=== PATIENT | male | born 1980 | race Caucasian/White ===

== ENCOUNTER 2023-12-17 07:49 | Outpatient (OUT) | payer OTHER, SELFPAY ==
[2023-12-17 09:06] LABS: Estimated Average Glucose 105 mg/dL; Glycohemoglobin A1C 5.3 % (4.5-6.2)
[2023-12-17 09:09] LABS: Alanine Aminotransferase 23 U/L (16-63); Albumin Globulin Ratio 1.3; Alkaline Phosphatase 73 U/L (46-116); Anion Gap 11.1; Aspartate Amino Transferase 15 U/L (15-37); BUN Creatinine Ratio 11.6; Bilirubin Total 1.1 mg/dL (0.2-1.0); Calcium 8.6 mg/dL (8.5-10.1); Carbon Dioxide 27.8 mmol/L (21.0-32.0); Chloride 106 mmol/L (98-107); Chol HDL Ratio 3.5; Cholesterol 158 mg/dL (<=200); Estimated GFR (African America >60 (>=60); Estimated GFR (Non-African Ame >60 (>=60); Globulin 3.1 g/dL; Glucose 100 mg/dL (74-106); HDL Cholesterol 45 mg/dL (40-60); LDL Cholesterol Calculated 96.4 mg/dL; Potassium 3.9 mmol/L (3.5-5.1); Sodium 141 mmol/L (136-145); Thyroid Stimulating Hormone 1.284 uIU/mL (0.358-3.740); Total Protein 7.1 g/dL (6.4-8.2); Triglycerides 83 mg/dL (<=150); VLDL CHOLESTEROL 16.6 mg/dL
[2023-12-17 09:23] LABS: Prostate Specific Antigen Scrn 0.87 ng/mL (<=4.00)
[2023-12-17 09:44] LABS: Basophils Percent Auto 0.8 % (0.2-2.0); Eosinophils Absolute Auto 0.1 10^3/uL (0.0-0.7); Eosinophils Percent Auto 1.6 % (0.9-7.0); Hemoglobin 14.9 g/dL (14.0-18.0); Immature Granulocytes Abs Auto 0.01 10^3/uL (0.00-0.03); Immature Granulocytes Pct Auto 0.2 % (0.0-0.5); Lymphocytes Absolute Auto 1.9 10^3/uL (1.2-3.8); Lymphocytes Percent Auto 37.3 % (20.5-60.0); Mean Corpuscular HGB Conc 33.1 g/dL (29.9-35.2); Mean Corpuscular Hemoglobin 29.7 pg (25.9-34.0); Mean Corpuscular Volume 89.6 fL (80.0-94.0); Mean Platelet Volume 10.6 fL (9.5-13.5); Monocytes Absolute Auto 0.4 10^3/uL (0.3-0.8); Neutrophils Absolute Auto 2.7 10^3/uL (1.4-6.5); Neutrophils Percent Auto 52.1 % (43.0-75.0); Platelet Count 205 10^3/uL (150-450); Red Blood Count 5.02 10^6/uL (4.70-6.10); Red Cell Distribution Width 11.8 % (11.0-15.0); White Blood Count 5.2 10^3/uL (4.0-11.0)
[2023-12-17 10:15] LABS: Free T3 2.61 pg/mL (2.18-3.98)
== END 2023-12-17 07:50 | disposition home or self-care (01) ==
LOC: LAB 07:54
PROVIDERS: PCP Family Medicine; Visit Provider Family Medicine
DX: Z00.00 Encounter for general adult medical examination without abnormal findings (principal); I10 Essential (primary) hypertension; E78.5 Hyperlipidemia, unspecified
CPT/HCPCS: 36415; 80053; 80061; 83036; 84436; 84439; 84443; 84481; 85025; G0103

== ENCOUNTER 2024-04-08 15:32 | Emergency (ER) | payer OTHER, SELFPAY ==
[2024-04-08 15:35] VITALS: PULSE 83; TEMP 36.6; O2SAT 98; BMI 34.2
[2024-04-08 15:40] VITALS: BP 145/90
--- NOTE | 2024-04-08 15:43 | XR_ITS ---
The [address] [address] Patient Name: GALINDO HURTADO MRN: [id number] date: 1980 Sex: M Assigned Patient Location: ER Current Patient Location: Accession/Order Number: [id number] Exam Date: 04/08/2024 16:10 Report Date: 04/08/2024 16:54 At the request of: AYALA DALTON Procedure: XR knee RT 3V EXAM: XR knee RT 3V HISTORY: fall COMPARISON: None. TECHNIQUE: 3 views of the right knee. FINDINGS: No acute fracture or dislocation. No significant knee joint effusion. No radiodense foreign body, or appreciable soft tissue gas. XR/XR knee RT 3V IMPRESSION: No acute osseous abnormality. Electronically authenticated by: MAGDA COLINDRES Date: 04/08/2024 16:54
--- NOTE | 2024-04-08 15:43 | ED_ITS ---
HPI HPI - Extremity Injury (Lower) General Chief Complaint: Extremity Injury, Lower Stated Complaint: fell off roof, knee pain Time Seen by Provider: 04/08/24 15:33 Source: patient Mode of arrival: Wheelchair Limitations: no limitations History of Present Illness HPI Narrative: Patient is a 44-year-old male who presents to the emergency department for an injury to the right knee. He states that he was dangling from his roof approximately 10 to 11 feet when he missed a step on the ladder and slowly slid down the ladder, landing on his feet, his right knee buckled. He states initially he was able to ambulate with no significant pain but it has become more painful as time is gone on. He denies any fall to the ground, head injury, pain in the neck or back. Most of his pain is in the anterolateral right knee. No medications prior to arrival. Related Data Previous Rx's ?Medication ?Instructions ?Recorded hydrocodone 5 mg-acetaminophen 325 1 tab PO Q6H PRN pain 3 days #12 04/08/24 mg tablet tabs ketorolac 10 mg tablet 10 mg PO TID PRN pain #10 tabs 04/08/24 Allergies Allergy/AdvReac Type Severity Reaction Status Date / Time No Known Drug Allergies Allergy Verified 04/08/24 15:58 Opioid HPI Opioid Management Most Recent Pain and Opioid Data: Last Pain Scale 7 04/08/24 16:08 04/08/24 Last MAR Pain Assessment 04/08/24 16:08 Review of Systems ROS Constitutional Denies: fever or chills Ears, nose, mouth, and throat Denies: throat pain or nasal congestion Cardiovascular Denies: chest pain Respiratory Denies: shortness of breath Gastrointestinal Denies: nausea or vomiting Musculoskeletal Reports: extremity pain and joint pain; Denies: back pain or neck pain Integumentary/Breast Denies: rash Neurological Denies: numbness in extremities or weakness in extremities Hematologic/Lymphatic Denies: easy bruising or easy bleeding PFSH PFSH Social History Little interest or pleasure in doing things: not at all Feeling down, depressed, or hopeless: not at all Exam Narrative Exam Narrative: Gen.: Awake, alert, in no distress Head: Normocephalic, atraumatic ENT: Moist mucous membranes Respiratory: No respiratory distress Extremities: Tenderness in the anterolateral right knee with no laxity of the patella. No joint effusion noted. No posterior right knee pain. No bony tenderness of the right anterior tibia Psych: Normal mood and affect Neuro: No focal neuro deficit Skin: Warm, dry, intact Constitutional Vital Signs, click to edit/add: Last Vital Signs Temp 97.8 F 04/08/24 15:35 Pulse 83 04/08/24 15:35 Resp 18 04/08/24 15:35 BP 145/90 H 04/08/24 15:40 Pulse Ox 98 04/08/24 15:35 O2 Del Method Room Air 04/08/24 15:35 Course Vital Signs Vital signs: Vital Signs Temperature 97.8 F 04/08/24 15:35 Pulse Rate 83 04/08/24 15:35 Respiratory Rate 18 04/08/24 15:35 Pulse Oximetry 98 04/08/24 15:35 Oxygen Delivery Method Room Air 04/08/24 15:35 Temperature 97.8 F 04/08/24 15:35 Pulse Rate 83 04/08/24 15:35 Respiratory Rate 18 04/08/24 15:35 Blood Pressure 145/90 H 04/08/24 15:40 Pulse Oximetry 98 04/08/24 15:35 Oxygen Delivery Method Room Air 04/08/24 15:35 MDM - Extremity Injury (Lower) MDM Narrative Medical decision making narrative: X-rays with no evidence of fracture or dislocation. Patient placed in an Paul wrap and knee immobilizer and remains neurovascularly intact. Medicated for pain in the ER. He has crutches at home. Rest, ice, elevate. Recommend orthopedic follow-up, patient was given a referral. Short course of analgesics and NSAIDs for home. Work note provided. Return to the ER if symptoms change or worsen SHARED APC VISIT, PHYSICIAN ATTESTATION: [id number] I performed a substantive part of the MDM during the patient?s E/M visit. I personally evaluated and examined the patient. I personally made or approved the documented management plan and acknowledge its risk of complications. Medical Records Attestation: I reviewed the patient's medical records. Discharge Plan Discharge Chief Complaint: Extremity Injury, Lower Clinical Impression: Acute pain of right knee, Right knee sprain Patient Disposition: Home, Self-Care Time of Disposition Decision: 16:28 Condition: Good Prescriptions / Home Meds: New hydrocodone-acetaminophen 5-325 mg tablet 1 tab PO Q6H PRN (Reason: pain) 3 Days Qty: 12 0RF Rx Instructions: DX: M25.561 ketorolac 10 mg tablet 10 mg PO TID PRN (Reason: pain) Qty: 10 0RF Print Language: [place]an Instructions: Knee Sprain (ED) Referrals: Sherman Aguilera MD [Primary Care Provider] - 1 week Lux Colvin MD [Physician] - As needed
[2024-04-08] MEDS: KETOROLAC TROMETHAMINE 10 MG TABLET PO (16:08)
[2024-04-08] MEDS: HYDROCODONE/ACET 5-325 MG TABLET 1 TAB PO (16:08)
== END 2024-04-08 16:40 | disposition home or self-care (01) ==
PROVIDERS: Emergency Provider Emergency Medicine; PCP Family Medicine
DX: S83.91XA Sprain of unspecified site of right knee, initial encounter (principal); M25.561 Pain in right knee; W17.89XA Other fall from one level to another, initial encounter
CPT/HCPCS: 73562; 99284

== ENCOUNTER 2024-07-10 10:09 | Emergency (ER) | payer OTHER, SELFPAY ==
[2024-07-10 10:13] VITALS: BP 173/100; PULSE 136; TEMP 36.7; O2SAT 97; BMI 35.6
--- OUTSIDE RECORDS SUMMARY | 2024-07-10 10:18 | XMS_ITS | CCD ---
Author Organization [facility] Care Team Providers Care School Inspector Name Role Phone STEVENSON ART Admitting Unavailable STEVENSON ART Attending Unavailable STEVENSON ART Referring JS Allen Primary Care Unavailable JASVIR, DR WEINSTEIN Primary Care Unavailable JASVIR, DR WEINSTEIN Admitting Unavailable JASVIR, DR WEINSTEIN Attending Unavailable JASVIR, DR WEINSTEIN Consulting Unavailable TONY, DR GAL Lomax Consulting Unavailable HAY, DR STAFFORD Consulting Unavailable ALICE, PIETER SALCEDO Consulting Unavailable CHRISTINE PRYOR Consulting Unavailable JASVIR, DR WEINSTEIN Admitting Unavailable JASVIR, DR WEINSTEIN Attending Unavailable JASVIR, DR WEINSTEIN Primary Care Unavailable JASVIR, DR WEINSTEIN Consulting Unavailable JASVIR, DR WEINSTEIN Primary Care Unavailable ROSA, DR CHARLES Austin Admitting Unavaildon LEE, DR CHARLES Austin Attending Unavailabl e ANDRES, DR ASHELY Magallanes Consulting Unavailable GINGER DALTON Consulting Unavailable Problems Active Problems Problem Classification Problem Date Documented Da te Episodic/Chronic Acute bronchitis (1 source) Acute bronchitis, unspecified; Translations: [ACUTE BRONCHITIS UNSPECIFIED] Onset: 11-13-2021 Episodic Diseases of white blood cells (1 source) Elevated white blood cell count, unspecified; Translations: [ELEVATED WHITE BLOOD CELL COUNT UNS] Onset: 04-29-2021 Chronic Essential hypertension (1 source) Essential (primary) hypertension; Translations: [ESSENTIAL PRIMARY HYPERTENSION] Onset: 04-29-2021 Chronic Pneumonia (except that caused by tuberculosis or sexually transmitted disease) (1 source) Pneumonia (except that caused by tuberculosis or sexually transmitted disease); Translations: [PNEUMONIA D/T CORONAVIRUS DIS 2019] Onset: 04-29-2021 Respiratory failure; insufficiency; arrest (adult) (1 source) Dependence on supplemental oxygen; Translations: [DEPENDENCE ON SUPPLEMENTAL OXYGEN] Onset: 04-29-2021 Chronic Unclassified (3 sources) CONTACT W/AND (SUSP) EXPOS COVID-19; Translations: [CONTACT W/AND (SUSP) EXPOS COVID-19] Onset: 11-13-2021 Unclassified (1 source) COUGH, UNSPECIFIED; Translations: [COUGH, UNSPECIFIED] Onset: 04-17-2021 Viral infection (3 sources) COVID-19; Translations: [COVID-19] Onset: 04-17-2021 Past or Other Problems Problem Classification Problem Date Documented Da te Episodic/Chronic Cardiac dysrhythmias (1 source) Tachycardia, unspecified; Translations: [TACHYCARDIA UNSPECIFIED] Onset: 04-29-2021 Episodic Diabetes mellitus without complication (1 source) Hyperglycemia, unspecified; Translations: [HYPERGLYCEMIA UNSPECIFIED] Onset: 04-29-2021 Episodic Fever of unknown origin (4 sources) Fever, unspecified; Translations: [FEVER UNSPECIFIED] Onset: 04-15-2021 Episodic Fluid and electrolyte disorders (1 source) Hypo-osmolality and hyponatremia; Translations: [HYPO-OSMOLALITY AND HYPONATREMIA] Onset: 04-29-2021 Episodic Malaise and fatigue (1 source) Weakness; Translations: [WEAKNESS] Onset: 04-17-2021 Episodic Other aftercare (1 source) Other long chain quiller tender (current) drug therapy; Translations: [OTH VETERINARY TECHNICIAN CURRENT DRUG THERAPY] Onset: 04-17-2021 Episodic Other lower respiratory disease (1 source) Shortness of breath; Translations: [SHORTNESS OF BREATH] Onset: 04-17-2021 Episodic Respiratory failure; insufficiency; arrest (adult) (1 source) Acute respiratory failure with hypoxia; Translations: [ACUTE RESPIRATORY FAIL W/HYPOXIA] Onset: 04-29-2021 Episodic Unclassified (1 source) CONTACT W/AND (SUSP) EXPOS COVID-19; Translations: [CONTACT W/AND (SUSP) EXPOS COVID-19] Onset: 11-10-2021 Results Test Name Value Interpretation Reference Range Facility [facility]29 SARS-CoV-2 (COVID-19) RNA RADHA+probe Ql (Unsp spec) Not detected Normal NOT DETECTED [facility] Comment on above: Result Comment: This test is not yet approved or cleared by the [place] FDA. When there are no FDA-approved or cleared tests available, and other criteria are met, FDA can make tests available under an emergency access mechanism called an Emergency Use Authorization (EUA). The EUA for this test is supported by the Shrimp Peeling Machine Operator of Health and Human Service's (HHS's) declaration that circumstances exist to justify the emergency use of in vitro diagnostics for the detection and/or diagnosis of the virus that causes COVID-19. This EUA will remain in effect (meaning this test can be used) for the duration of the COVID-19 declaration justifying emergency of IVDs, unless it is terminated or revoked by FDA (after which the test may no longer be used). When diagnostic testing is negative, the possibility of a false negative should be considered in the context of a patient's recent exposures and the presence of clinical signs and symptoms consistent with SARS-CoV-2. Performed By: #### C VDTB #### [facility] [address] [place] [address] Dr. Reba Landis CBC W MANUAL DIFFon 04-22-20 21 ATYPICAL LYMPH # Normal [facility] Comment on above: Performed By: #### H STROPN, CMP #### [facility] [address] [place] [address] Dr. Reba Landis ATYPICAL LYMPH % Normal [facility] Comment on above: Performed By: #### H STROPN, CMP #### [facility] [address] [place] [address] Dr. Reba Landis BAND # Normal 0.0-0.3 [facility] Comment on above: Performed By: #### H STROPN, CMP #### [facility] [address] [place] [address] Dr. Reba Landis BAND % Normal 0-5 [facility] Comment on above: Performed By: #### H STROPN, CMP #### [facility] [address] [place] [address] Dr. Reba Landis BASOM # 0.00 103/ul Normal 0.00-0.10 [facility] Comment on above: Performed By: #### H STROPN, CMP #### [facility] [address] [place] [address] Dr. Reba Landis BASOM % 0.0 % Critically low 0.2-2.0 [facility] Comment on above: Performed By: #### H STROPN, CMP #### [facility] [address] [place] [address] Dr. Reba Landis BLAST # Normal [facility] Comment on above: Performed By: #### H STROPN, CMP #### [facility] [address] [address] [address] Reba Landis BLAST % Normal [facility] Comment on above: Performed By: #### H STROPN, CMP #### [facility] [address] [place] [address] Dr. Reba Landis CORRECTED WBC Normal 4.0-11.0 [facility] Comment on above: Performed By: #### H STROPN, CMP #### [facility] [address] [place] [address] Dr. Reba Landis EOS # 0.00 103/ul Normal 0.00-0.70 [facility] Comment on above: Performed By: #### H STROPN, CMP #### [facility] [address] [place] [address] Dr. Reba Landis EOS% 0.0 % Critically low 0.9-7.0 [facility] Comment on above: Performed By: #### H STROPN, CMP #### [facility] [address] [place] [address] Dr. Reba Landis HCT 42.4 % Normal 42.0-54.0 [facility] Comment on above: Performed By: #### H STROPN, CMP #### [facility] [address] [place] [address] Dr. Reba Landis HGB 14.2 g/dl Normal 14.0-18.0 [facility] Comment on above: Performed By: #### H STROPN, CMP #### [facility] [address] [place] [address] Dr. Reba Landis LYMPHM # 0.41 103/ul Critically low 1.20-3.[address] [facility] Comment on above: Performed By: #### H STROPN, CMP #### [facility] [address] [address] [address] Reba Landis LYMPHM% 3.0 % Critically low 20.5-60.0 [facility] Comment on above: Performed By: #### H STROPN, CMP #### [facility] [address] [address] [address] Reba Landis MCH 28.9 pg Normal 25.9-34.0 [facility] Comment on above: Performed By: #### H STROPN, CMP #### [facility] [address] [address] [address] Reba Landis MCHC 33.5 g/dl Normal 29.9-35.2 [facility] Comment on above: Performed By: #### H STROPN, CMP #### [facility] [address] [address] [address] Reba Landis MCV 86.4 fL Normal 80.0-94.0 [facility] Comment on above: Performed By: #### H STROPN, CMP #### [facility] [address] [place] [address] Dr. Reba Landis METAMYELOCYTE # Normal [facility] Comment on above: Performed By: #### H STROPN, CMP #### [facility] [address] [address] [address] Reba Landis METAMYELOCYTE % Normal [facility] Comment on above: Performed By: #### H STROPN, CMP #### [facility] [address] [address] [address] Reba Landis MONOM# 1.10 103/ul Critically high 0.30-0.80 [facility] Comment on above: Performed By: #### H STROPN, CMP #### [facility] [address] [address] [address] Reba Landis MONOM% 8.0 % Normal 1.7-12.0 [facility] Comment on above: Performed By: #### H STROPN, CMP #### [facility] [address] [address] [address] Reba Landis MPV 10.1 fL Normal 9.5-13.5 [facility] Comment on above: Performed By: #### H STROPN, CMP #### [facility] [address] [address] [address] Reba Landis MYELOCYTE # Normal [facility] Comment on above: Performed By: #### H STROPN, CMP #### [facility] [address] [address] [address] Reba Landis MYELOCYTE % Normal [facility] Comment on above: Performed By: #### H STROPN, CMP #### [facility] [address] [address] [address] Reba Landis NRBC Normal [facility] Comment on above: Performed By: #### H STROPN, CMP #### [facility] [address] [place] [address] Dr. Reba Landis PLT 312 103/ul Normal 150-450 [facility] Comment on above: Performed By: #### H STROPN, CMP #### [facility] [address] [place] [address] Dr. Reba Landis RBC 4.91 106/ul Normal 4.70-6.10 [facility] Comment on above: Performed By: #### H STROPN, CMP #### [facility] [address] [place] [address] Dr. Reba Landis RDW 11.9 % Normal 11.0-15.0 [facility] Comment on above: Performed By: #### H STROPN, CMP #### [facility] [address] [address] [address] Reba Landis SEG # 12.19 103/ul Critically high 1.40-6.50 [facility] Comment on above: Performed By: #### H STROPN, CMP #### [facility] [address] [address] [address] Reba Landis SEG % 89.0 % Critically high 43.0-75.0 [facility] Comment on above: Performed By: #### H STROPN, CMP #### [facility] [address] [address] [address] Reba Landis WBC 13.7 103/ul Critically high 4.0-11.0 [facility] Comment on above: Performed By: #### H JEZ, CMP #### [facility] [address] [address] [address] Reba Landis CRPon 04-22-2021 CRP 0.8 mg/dL Normal <=1.0 [facility] Comment on above: Performed By: #### H EDNAPN, CMP #### [facility] [address] [address] [address] Reba Landis PROF 14(COMP METB)on 021 Albumin [Mass/Vol] 2.5 g/dL Critically low 3.5-5.0 [facility] Comment on above: Performed By: #### H JEZ, CMP #### [facility] [address] [place] [address] Dr. Reba Landis Albumin/Globulin [Mass ratio] 0.7 {ratio} Normal [facility] Comment on above: Performed By: #### H EDNAPN, CMP #### [facility] [address] [place] [address] Dr. Reba Landis ALP [Catalytic activity/Vol] 62 U/L Normal 38-126 [facility] Comment on above: Performed By: #### H EDNAPN, CMP #### [facility] [address] [address] [address] Reba Landis ALT [Catalytic activity/Vol] 35 U/L Normal 21-72 [facility] Comment on above: Performed By: #### H EDNAPN, CMP #### [facility] [address] [address] [address] Reba Landis Anion gap [Moles/Vol] 14.0 mmol/L Normal [facility] Comment on above: Performed By: #### H STROPN, CMP #### [facility] [address] [place] [address] Dr. Reba Landis AST [Catalytic activity/Vol] 13 U/L Critically low 17-59 [facility] Comment on above: Performed By: #### H STROPN, CMP #### [facility] [address] [address] [address] Reba Landis Bilirubin [Mass/Vol] 0.4 mg/dL Normal 0.2-1.3 [facility] Comment on above: Performed By: #### H STROPN, CMP #### [facility] [address] [address] [address] Reba Landis Calcium [Mass/Vol] 8.5 mg/dL Normal 8.4-10.2 [facility] Comment on above: Performed By: #### H STROPN, CMP #### [facility] [address] [address] [address] Reba Landis Chloride [Moles/Vol] 103 mmol/L Normal 98-107 [facility] Comment on above: Performed By: #### H STROPN, CMP #### [facility] [address] [place] [address] Dr. Reba Landis CO2 [Moles/Vol] 24.8 mmol/L Normal 22.0-30.0 [facility] Comment on above: Performed By: #### H STROPN, CMP #### [facility] [address] [place] [address] Dr. Reba Landis Creatinine [Mass/Vol] 0.93 mg/dL Normal 0.66-1.25 [facility] Comment on above: Performed By: #### H STROPN, CMP #### [facility] [address] [place] [address] Dr. Reba Landis EGFR-AF GUAMANIAN >60 Normal >=60 [facility] Comment on above: Performed By: #### H STROPN, CMP #### [facility] [address] [place] [address] Dr. Reba Landis EGFR-NON AF GUAMANIAN >60 Normal >=60 [facility] Comment on above: Performed By: #### H STROPN, CMP #### [facility] [address] [place] [address] Dr. Reba Landis Globulin (S) [Mass/Vol] 3.7 g/dL Normal [facility] Comment on above: Performed By: #### H STROPN, CMP #### [facility] [address] [address] [address] Reba Landis Glucose [Mass/Vol] 206 mg/dL Critically high 74-106 [facility] Comment on above: Performed By: #### H EDNAPN, CMP #### [facility] [address] [address] [address] Reba Landis Potassium [Moles/Vol] 4.8 mmol/L Normal 3.4-5.0 [facility] Comment on above: Performed By: #### H STROPN, CMP #### [facility] [address] [address] [address] Reba Landis Protein [Mass/Vol] 6.2 g/dL Normal 6.1-8.2 [facility] Comment on above: Performed By: #### H STROPN, CMP #### [facility] [address] [place] [address] Dr. Reba Landis Sodium [Moles/Vol] 137 mmol/L Normal 137-145 [facility] Comment on above: Performed By: #### H STROPN, CMP #### [facility] [address] [place] [address] Dr. Reba Landis Urea nitrogen [Mass/Vol] 19.0 mg/dL Normal 9.0-20.0 [facility] Comment on above: Performed By: #### H EDNAPN, CMP #### [facility] [address] [place] [address] Dr. Reba Landis Urea nitrogen/Creatinin e [Mass ratio] 20.4 mg/mg Normal [facility] Comment on above: Performed By: #### H STROPN, CMP #### [facility] [address] [place] [address] Dr. Reba Landis THEOPHYLLINEon 04-22-2021 THEOPHYLLINE 11.0 ug/mL Normal 8.0-20.0 [facility] Comment on above: Performed By: #### H STROPN, CMP #### [facility] [address] [place] [address] Dr. Reba Landis CBC AUTO DIFFon 04-21-2021 BASO # 0.0 103/ul Normal 0.0-0.1 [facility] Comment on above: Performed By: #### H STROPN, CMP #### [facility] [address] [place] [address] Dr. Reba Landis Basophils/100 WBC (Bld) 0.1 % Critically low 0.2-2.0 [facility] Comment on above: Performed By: #### H STROPN, CMP #### [facility] [address] [place] [address] Dr. Reba Landis EO # 0.0 103/ul Normal 0.0-0.7 [facility] Comment on above: Performed By: #### H STROPN, CMP #### [facility] [address] [place] [address] Dr. Reba Landis Eosinophils/100 WBC (Bld) 0.0 % Critically low 0.9-7.0 [facility] Comment on above: Performed By: #### H STROPN, CMP #### [facility] [address] [place] [address] Dr. Reba Landis Erythrocyte distribution width (RBC) [Ratio] 11.9 % Normal 11.0-15.0 [facility] Comment on above: Performed By: #### H STROPN, CMP #### [facility] [address] [place] [address] Dr. Reba Landis Hematocrit (Bld) [Volume fraction] 40.0 % Critically low 42.0-54.0 [facility] Comment on above: Performed By: #### H STROPN, CMP #### [facility] [address] [place] [address] Dr. Reba Landis Hemoglobin (Bld) [Mass/Vol] 13.3 g/dL Critically low 14.0-18.0 [facility] Comment on above: Performed By: #### H STROPN, CMP #### [facility] [address] [place] [address] Dr. Reba Landis IG # 0.12 10e3/ul Critically high 0.00-0.03 [facility] Comment on above: Performed By: #### H STROPN, CMP #### [facility] [address] [address] [address] Reba Landis IG % 1.1 % Critically high 0.0-0.[address] [facility] Comment on above: Performed By: #### H STROPN, CMP #### [facility] [address] [place] [address] Dr. Reba Landis LYMPH # 0.7 103/ul Critically low 1.2-3.8 [facility] Comment on above: Performed By: #### H STROPN, CMP #### [facility] [address] [place] [address] Dr. Reba Landis Lymphocytes/100 WBC (Bld) 5.9 % Critically low 20.5-60.0 [facility] Comment on above: Performed By: #### H STROPN, CMP #### [facility] [address] [place] [address] Dr. Reba Landis MANUAL DIFF REQ NO Normal [facility] Comment on above: Performed By: #### H STROPN, CMP #### [facility] [address] [place] [address] Dr. Reba Landis MCH (RBC) [Entitic mass] 28.5 pg Normal 25.9-34.0 [facility] Comment on above: Performed By: #### H STROPN, CMP #### [facility] [address] [place] [address] Dr. Reba Landis MCHC (RBC) [Mass/Vol] 33.3 g/dL Normal 29.9-35.2 [facility] Comment on above: Performed By: #### H STROPN, CMP #### [facility] [address] [place] [address] Dr. Reba Landis MCV (RBC) [Entitic vol] 85.8 fL Normal 80.0-94.0 [facility] Comment on above: Performed By: #### H STROPN, CMP #### [facility] [address] [place] [address] Dr. Reba Landis MONO # 0.5 103/ul Normal 0.3-0.8 [facility] Comment on above: Performed By: #### H STROPN, CMP #### [facility] [address] [address] [address] Reba Landis Monocytes/100 WBC (Bld) 4.5 % Normal 1.7-12.0 [facility] Comment on above: Performed By: #### H STROPN, CMP #### [facility] [address] [address] [address] Reba Landis NEUT # 9.7 103/ul Critically high 1.4-6.[address] [facility] Comment on above: Performed By: #### H STROPN, CMP #### [facility] [address] [address] [address] Reba Landis Neutrophils/100 WBC (Bld) 88.4 % Critically high 43.0-75.0 [facility] Comment on above: Performed By: #### H STROPN, CMP #### [facility] [address] [address] [address] Reba Landis Platelet mean volume (Bld) [Entitic vol] 10.7 fL Normal 9.5-13.5 [facility] Comment on above: Performed By: #### H STROPN, CMP #### [facility] [address] [address] [address] Reba Landis PLT 273 103/ul Normal 150-450 [facility] Comment on above: Performed By: #### H STROPN, CMP #### [facility] [address] [address] [address] Reba Landis RBC 4.66 106/ul Critically low 4.70-6.[address] [facility] Comment on above: Performed By: #### H STROPN, CMP #### [facility] [address] [address] [address] Reba Landis WBC 10.9 103/ul Normal 4.0-11.0 [facility] Comment on above: Performed By: #### H STROPN, CMP #### [facility] [address] [address] [address] Reba Landis CRPon 04-21-2021 CRP 1.4 mg/dL Critically high <=1.[address] [facility] Comment on above: Performed By: #### H STROPN, CMP #### [facility] [address] [address] [address] Reba Landis PROF 14(COMP METB)on 021 Albumin [Mass/Vol] 2.5 g/dL Critically low 3.5-5.0 [facility] Comment on above: Performed By: #### H EDNAPN, CMP #### [facility] [address] [address] [address] Reba Landis Albumin/Globulin [Mass ratio] 0.7 {ratio} Normal [facility] Comment on above: Performed By: #### H EDNAPN, CMP #### [facility] [address] [address] [address] Reba Landis ALP [Catalytic activity/Vol] 63 U/L Normal 38-126 [facility] Comment on above: Performed By: #### H EDNAPN, CMP #### [facility] [address] [address] [address] Reba Landis ALT [Catalytic activity/Vol] 40 U/L Normal 21-72 [facility] Comment on above: Performed By: #### H EDNAPN, CMP #### [facility] [address] [address] [address] Reba Landis Anion gap [Moles/Vol] 13.4 mmol/L Normal [facility] Comment on above: Performed By: #### H EDNAPN, CMP #### [facility] [address] [address] [address] Reba Landis AST [Catalytic activity/Vol] 15 U/L Critically low 17-59 [facility] Comment on above: Performed By: #### H STROPN, CMP #### [facility] [address] [address] [address] Reba Landis Bilirubin [Mass/Vol] 0.4 mg/dL Normal 0.2-1.3 [facility] Comment on above: Performed By: #### H STROPN, CMP #### [facility] [address] [place] [address] Dr. Reba Landis Calcium [Mass/Vol] 8.6 mg/dL Normal 8.4-10.2 [facility] Comment on above: Performed By: #### H STROPN, CMP #### [facility] [address] [address] [address] Reba Landis Chloride [Moles/Vol] 103 mmol/L Normal 98-107 [facility] Comment on above: Performed By: #### H STROPN, CMP #### [facility] [address] [address] [address] Reba Landis CO2 [Moles/Vol] 26.2 mmol/L Normal 22.0-30.0 [facility] Comment on above: Performed By: #### H STROPN, CMP #### [facility] [address] [place] [address] Dr. Reba Landis Creatinine [Mass/Vol] 0.88 mg/dL Normal 0.66-1.25 [facility] Comment on above: Performed By: #### H STROPN, CMP #### [facility] [address] [place] [address] Dr. Reba Landis EGFR-AF GUAMANIAN >60 Normal >=60 [facility] Comment on above: Performed By: #### H EDNAPN, CMP #### [facility] [address] [place] [address] Dr. Reba Landis EGFR-NON AF GUAMANIAN >60 Normal >=60 [facility] Comment on above: Performed By: #### H EDNAPN, CMP #### [facility] [address] [place] [address] Dr. Reba Landis Globulin (S) [Mass/Vol] 3.5 g/dL Normal [facility] Comment on above: Performed By: #### H STROPN, CMP #### [facility] [address] [place] [address] Dr. Reba Landis Glucose [Mass/Vol] 202 mg/dL Critically high 74-106 T [facility] Comment on above: Performed By: #### H STROPN, CMP #### [facility] [address] [place] [address] Dr. Reba Landis Potassium [Moles/Vol] 4.6 mmol/L Normal 3.4-5.0 [facility] Comment on above: Performed By: #### H JEZ, CMP #### [facility] [address] [place] [address] Dr. Reba Landis Protein [Mass/Vol] 6.0 g/dL Critically low 6.1-8.2 [facility] Comment on above: Performed By: #### H JEZ, CMP #### [facility] [address] [place] [address] Dr. Reba Landis Sodium [Moles/Vol] 138 mmol/L Normal 137-145 [facility] Comment on above: Performed By: #### H JEZ, CMP #### [facility] [address] [place] [address] Dr. Reba Landis Urea nitrogen [Mass/Vol] 16.0 mg/dL Normal 9.0-20.0 [facility] Comment on above: Performed By: #### Ruddy STORY, CMP #### [facility] [address] [place] [address] Dr. Reba Landis Urea nitrogen/Creatinin e [Mass ratio] 18.2 mg/mg Normal [facility] Comment on above: Performed By: #### H JEZ, CMP #### [facility] [address] [place] [address] Dr. Reba Landis THEOPHYLLINEon 04-21-2021 THEOPHYLLINE 9.5 ug/mL Normal 8.0-20.0 [facility] Comment on above: Performed By: #### H JEZ, CMP #### [facility] [address] [place] [address] Dr. Reba Landis CBC AUTO DIFFon 04-20-2021 BASO # 0.0 103/ul Normal 0.0-0.1 [facility] Comment on above: Performed By: #### C BC #### [facility] [address] [place] [address] Dr. Reba Landis Basophils/100 WBC (Bld) 0.2 % Normal 0.2-2.0 [facility] Comment on above: Performed By: #### C BC #### [facility] [address] [address] [address] Reba Landis EO # 0.0 103/ul Normal 0.0-0.7 [facility] Comment on above: Performed By: #### C BC #### [facility] [address] [place] [address] Dr. Reba Landis Eosinophils/100 WBC (Bld) 0.0 % Critically low 0.9-7.0 [facility] Comment on above: Performed By: #### C BC #### [facility] [address] [place] [address] Dr. Reba Landis Erythrocyte distribution width (RBC) [Ratio] 12.0 % Normal 11.0-15.0 [facility] Comment on above: Performed By: #### C BC #### [facility] [address] [place] [address] Dr. Reba Landis Hematocrit (Bld) [Volume fraction] 43.3 % Normal 42.0-54.0 [facility] Comment on above: Performed By: #### C BC #### [facility] [address] [place] [address] Dr. Reba Landis Hemoglobin (Bld) [Mass/Vol] 14.4 g/dL Normal 14.0-18.0 [facility] Comment on above: Performed By: #### C BC #### [facility] [address] [place] [address] Dr. Reba Landis IG # 0.16 10e3/ul Critically high 0.00-0.03 [facility] Comment on above: Performed By: #### C BC #### [facility] [address] [place] [address] Dr. Reba Landis IG % 1.0 % Critically high 0.0-0.[address] [facility] Comment on above: Performed By: #### C BC #### [facility] [address] [place] [address] Dr. Reba Landis LYMPH # 0.9 103/ul Critically low 1.2-3.8 [facility] Comment on above: Performed By: #### C BC #### [facility] [address] [place] [address] Dr. Reba Landis Lymphocytes/100 WBC (Bld) 5.2 % Critically low 20.5-60.0 [facility] Comment on above: Performed By: #### C BC #### [facility] [address] [place] [address] Dr. Reba Landis MANUAL DIFF REQ NO Normal [facility] Comment on above: Performed By: #### C BC #### [facility] [address] [place] [address] Dr. Reba Landis MCH (RBC) [Entitic mass] 29.0 pg Normal 25.9-34.0 [facility] Comment on above: Performed By: #### C BC #### [facility] [address] [place] [address] Dr. Reba Landis MCHC (RBC) [Mass/Vol] 33.3 g/dL Normal 29.9-35.2 [facility] Comment on above: Performed By: #### C BC #### [facility] [address] [place] [address] Dr. Reba Landis MCV (RBC) [Entitic vol] 87.1 fL Normal 80.0-94.0 [facility] Comment on above: Performed By: #### C BC #### [facility] [address] [place] [address] Dr. Reba Landis MONO # 0.5 103/ul Normal 0.3-0.8 [facility] Comment on above: Performed By: #### C BC #### [facility] [address] [place] [address] Dr. Reba Landis Monocytes/100 WBC (Bld) 3.0 % Normal 1.7-12.0 [facility] Comment on above: Performed By: #### C BC #### [facility] [address] [place] [address] Dr. Reba Landis NEUT # 15.0 103/ul Critically high 1.4-6.5 [facility] Comment on above: Performed By: #### C BC #### [facility] [address] [address] [address] Reba Landis Neutrophils/100 WBC (Bld) 90.6 % Critically high 43.0-75.0 [facility] Comment on above: Performed By: #### C BC #### [facility] [address] [place] [address] Dr. Reba Landis Platelet mean volume (Bld) [Entitic vol] 10.8 fL Normal 9.5-13.5 [facility] Comment on above: Performed By: #### C BC #### [facility] [address] [address] [address] Reba Landis PLT 302 103/ul Normal 150-450 [facility] Comment on above: Performed By: #### C BC #### [facility] [address] [place] [address] Dr. Reba Landis RBC 4.97 106/ul Normal 4.70-6.10 [facility] Comment on above: Performed By: #### C BC #### [facility] [address] [address] [address] Reba Landis WBC 16.5 103/ul Critically high 4.0-11.0 [facility] Comment on above: Performed By: #### C BC #### [facility] [address] [place] [address] Dr. Reba Landis CRPon 04-20-2021 CRP 3.3 mg/dL Critically high <=1.[address] [facility] Comment on above: Performed By: #### T RUFINO, CMP, CRP #### [facility] [address] [place] [address] Dr. Reba Landis Covid-19 PCR (CVDTB)on 04-01 SARS-CoV-2 (COVID-19) RNA RADHA+probe Ql (Unsp spec) Not detected Normal NOT DETECTED [facility] Comment on above: Result Comment: This test is not yet approved or cleared by the [place] FDA. When there are no FDA-approved or cleared tests available, and other criteria are met, FDA can make tests available under an emergency access mechanism called an Emergency Use Authorization (EUA). The EUA for this test is supported by the [place] of Health and Human Service's (HHS's) declaration that circumstances exist to justify the emergency use of in vitro diagnostics for the detection and/or diagnosis of the virus that causes COVID-19. This EUA will remain in effect (meaning this test can be used) for the duration of the COVID-19 declaration justifying emergency of IVDs, unless it is terminated or revoked by FDA (after which the test may no longer be used). When diagnostic testing is negative, the possibility of a false negative should be considered in the context of a patient's recent exposures and the presence of clinical signs and symptoms consistent with SARS-CoV-2. Performed By: #### C VDTBH #### [facility] [address] [place] [address] Dr. Reba Landis PROF 14(COMP METB)on 021 Albumin [Mass/Vol] 2.8 g/dL Critically low 3.5-5.0 [facility] Comment on above: Performed By: #### Peyton JOY CMP, CRP #### [facility] [address] [place] [address] Dr. Reba Landis Albumin/Globulin [Mass ratio] 0.7 {ratio} Normal [facility] Comment on above: Performed By: #### Peyton JOY CMP, CRP #### [facility] [address] [place] [address] Dr. Reba Landis ALP [Catalytic activity/Vol] 79 U/L Normal 38-126 [facility] Comment on above: Performed By: #### Peyton JOY CMP, CRP #### [facility] [address] [place] [address] Dr. Reba Landis ALT [Catalytic activity/Vol] 51 U/L Normal 21-72 [facility] Comment on above: Performed By: #### Peyton JOY CMP, CRP #### [facility] [address] [place] [address] Dr. Reba Landis Anion gap [Moles/Vol] 14.0 mmol/L Normal [facility] Comment on above: Performed By: #### Peyton JOY CMP, CRP #### [facility] [address] [address] [address] Reba Landis AST [Catalytic activity/Vol] 24 U/L Normal 17-59 [facility] Comment on above: Performed By: #### Peyton JOY CMP, CRP #### [facility] [address] [place] [address] Dr. Reba Landis Bilirubin [Mass/Vol] 0.4 mg/dL Normal 0.2-1.3 [facility] Comment on above: Performed By: #### Peyton JOY CMP, CRP #### [facility] [address] [place] [address] Dr. Reba Landis Calcium [Mass/Vol] 8.8 mg/dL Normal 8.4-10.2 [facility] Comment on above: Performed By: #### Peyton JOY CMP, CRP #### [facility] [address] [place] [address] Dr. Reba Landis Chloride [Moles/Vol] 103 mmol/L Normal 98-107 [facility] Comment on above: Performed By: #### Peyton JOY CMP, CRP #### [facility] [address] [place] [address] Dr. Reba Landis CO2 [Moles/Vol] 24.1 mmol/L Normal 22.0-30.0 [facility] Comment on above: Performed By: #### Peyton JOY CMP, CRP #### [facility] [address] [place] [address] Dr. Reba Landis Creatinine [Mass/Vol] 1.08 mg/dL Normal 0.66-1.25 [facility] Comment on above: Performed By: #### Peyton JOY CMP, CRP #### [facility] [address] [address] [address] Reba Landis EGFR-AF GUAMANIAN >60 Normal >=60 [facility] Comment on above: Performed By: #### T RUFINO, CMP, CRP #### [facility] [address] [address] [address] Reba Landis EGFR-NON AF GUAMANIAN >60 Normal >=60 [facility] Comment on above: Performed By: #### T RUFINO CMP, CRP #### [facility] [address] [address] [address] Reba Landis Globulin (S) [Mass/Vol] 4.3 g/dL Normal [facility] Comment on above: Performed By: #### T RUFINO, CMP, CRP #### [facility] [address] [address] [address] Reba Landis Glucose [Mass/Vol] 204 mg/dL Critically high 74-106 [facility] Comment on above: Performed By: #### T RUFINO, CMP, CRP #### [facility] [address] [address] [address] Reba Landis Potassium [Moles/Vol] 4.1 mmol/L Normal 3.4-5.0 [facility] Comment on above: Performed By: #### T RUFINO, CMP, CRP #### [facility] [address] [address] [address] Reba Landis Protein [Mass/Vol] 7.1 g/dL Normal 6.1-8.2 [facility] Comment on above: Performed By: #### T RUFINO, CMP, CRP #### [facility] [address] [address] [address] Reba Landis Sodium [Moles/Vol] 137 mmol/L Normal 137-145 [facility] Comment on above: Performed By: #### T RUFINO, CMP, CRP #### [facility] [address] [address] [address] Reba Landis Urea nitrogen [Mass/Vol] 19.0 mg/dL Normal 9.0-20.0 [facility] Comment on above: Performed By: #### T RUFINO, CMP, CRP #### [facility] [address] [address] [address] Reba Landis Urea nitrogen/Creatinin e [Mass ratio] 17.6 mg/mg Normal [facility] Comment on above: Performed By: #### T RUFINO, CMP, CRP #### [facility] [address] [address] [address] Reba Landis THEOPHYLLINEon 04-20-2021 THEOPHYLLINE 11.0 ug/mL Normal 8.0-20.0 [facility] Comment on above: Performed By: #### T RUFINO, CMP, CRP #### [facility] [address] [place] [address] Dr. Reba Landis CBC AUTO DIFFon 04-19-2021 BASO # 0.0 103/ul Normal 0.0-0.1 [facility] Comment on above: Performed By: #### H STROPN, CMP #### [facility] [address] [place] [address] Dr. Reba Landis Basophils/100 WBC (Bld) 0.1 % Critically low 0.2-2.0 [facility] Comment on above: Performed By: #### H JZE, CMP #### [facility] [address] [place] [address] Dr. Reba Landis EO # 0.0 103/ul Normal 0.0-0.7 [facility] Comment on above: Performed By: #### H JEZ, CMP #### [facility] [address] [place] [address] Dr. Reba Landis Eosinophils/100 WBC (Bld) 0.0 % Critically low 0.9-7.0 [facility] Comment on above: Performed By: #### H JEZ, CMP #### [facility] [address] [place] [address] Dr. Reba Landis Erythrocyte distribution width (RBC) [Ratio] 12.1 % Normal 11.0-15.0 [facility] Comment on above: Performed By: #### H STROPN, CMP #### [facility] [address] [place] [address] Dr. Reba Landis Hematocrit (Bld) [Volume fraction] 42.3 % Normal 42.0-54.0 [facility] Comment on above: Performed By: #### H EDNAPN, CMP #### [facility] [address] [place] [address] Dr. Reba Landis Hemoglobin (Bld) [Mass/Vol] 13.7 g/dL Critically low 14.0-18.0 [facility] Comment on above: Performed By: #### H STROPN, CMP #### [facility] [address] [address] [address] Reba Landis IG # 0.13 10e3/ul Critically high 0.00-0.03 [facility] Comment on above: Performed By: #### H STROPN, CMP #### [facility] [address] [address] [address] Reba Landis IG % 0.8 % Critically high 0.0-0.5 [facility] Comment on above: Performed By: #### H STROPN, CMP #### [facility] [address] [address] [address] Reba Landis LYMPH # 0.8 103/ul Critically low 1.2-3.8 [facility] Comment on above: Performed By: #### H STROPN, CMP #### [facility] [address] [address] [address] Reba Landis Lymphocytes/100 WBC (Bld) 5.0 % Critically low 20.5-60.0 [facility] Comment on above: Performed By: #### H STROPN, CMP #### [facility] [address] [address] [address] Reba Landis MANUAL DIFF REQ NO Normal [facility] Comment on above: Performed By: #### H STROPN, CMP #### [facility] [address] [address] [address] Reba Landis MCH (RBC) [Entitic mass] 28.5 pg Normal 25.9-34.0 [facility] Comment on above: Performed By: #### H STROPN, CMP #### [facility] [address] [address] [address] Reba Landis MCHC (RBC) [Mass/Vol] 32.4 g/dL Normal 29.9-35.2 [facility] Comment on above: Performed By: #### H STROPN, CMP #### [facility] [address] [address] [address] Reba Landis MCV (RBC) [Entitic vol] 87.9 fL Normal 80.0-94.0 [facility] Comment on above: Performed By: #### H STROPN, CMP #### [facility] [address] [place] [address] Dr. Reba Landis MONO # 0.4 103/ul Normal 0.3-0.8 [facility] Comment on above: Performed By: #### H STROPN, CMP #### [facility] [address] [place] [address] Dr. Reba Landis Monocytes/100 WBC (Bld) 2.3 % Normal 1.7-12.0 [facility] Comment on above: Performed By: #### H STROPN, CMP #### [facility] [address] [place] [address] Dr. Reba Landis NEUT # 14.3 103/ul Critically high 1.4-6.5 [facility] Comment on above: Performed By: #### H STROPN, CMP #### [facility] [address] [place] [address] Dr. Reba Landis Neutrophils/100 WBC (Bld) 91.8 % Critically high 43.0-75.0 [facility] Comment on above: Performed By: #### H STROPN, CMP #### [facility] [address] [place] [address] Dr. Reba Landis Platelet mean volume (Bld) [Entitic vol] 10.9 fL Normal 9.5-13.5 [facility] Comment on above: Performed By: #### H STROPN, CMP #### [facility] [address] [place] [address] Dr. Reba Landis PLT 234 103/ul Normal 150-450 [facility] Comment on above: Performed By: #### H STROPN, CMP #### [facility] [address] [place] [address] Dr. Reba Landis RBC 4.81 106/ul Normal 4.70-6.10 [facility] Comment on above: Performed By: #### H STROPN, CMP #### [facility] [address] [place] [address] Dr. Reba Landis WBC 15.5 103/ul Critically high 4.0-11.0 [facility] Comment on above: Performed By: #### H JEZ, CMP #### [facility] [address] [place] [address] Dr. Reba Landis CRPon 04-19-2021 CRP 5.6 mg/dL Critically high <=1.0 [facility] Comment on above: Performed By: #### H JEZ, CMP #### [facility] [address] [address] [address] Reba Landis PROF 14(COMP METB)on 021 Albumin [Mass/Vol] 2.6 g/dL Critically low 3.5-5.0 [facility] Comment on above: Performed By: #### H JEZ, CMP #### [facility] [address] [place] [address] Dr. Reba Landis Albumin/Globulin [Mass ratio] 0.6 {ratio} Normal [facility] Comment on above: Performed By: #### H JEZ, CMP #### [facility] [address] [place] [address] Dr. Reba Landis ALP [Catalytic activity/Vol] 78 U/L Normal 38-126 [facility] Comment on above: Performed By: #### H JEZ, CMP #### [facility] [address] [place] [address] Dr. Reba Landis ALT [Catalytic activity/Vol] 51 U/L Normal 21-72 [facility] Comment on above: Performed By: #### H EDNAPN, CMP #### [facility] [address] [place] [address] Dr. Reba Landis Anion gap [Moles/Vol] 10.6 mmol/L Normal [facility] Comment on above: Performed By: #### H EDNAPN, CMP #### [facility] [address] [place] [address] Dr. Reba Landis AST [Catalytic activity/Vol] 26 U/L Normal 17-59 [facility] Comment on above: Performed By: #### H EDNAPN, CMP #### [facility] [address] [address] [address] Reba Landis Bilirubin [Mass/Vol] 0.5 mg/dL Normal 0.2-1.3 [facility] Comment on above: Performed By: #### H STROPN, CMP #### [facility] [address] [place] [address] Dr. Reba Landis Calcium [Mass/Vol] 8.8 mg/dL Normal 8.4-10.2 [facility] Comment on above: Performed By: #### H STROPN, CMP #### [facility] [address] [place] [address] Dr. Reba Landis Chloride [Moles/Vol] 103 mmol/L Normal 98-107 [facility] Comment on above: Performed By: #### H STROPN, CMP #### [facility] [address] [place] [address] Dr. Reba Landis CO2 [Moles/Vol] 28.9 mmol/L Normal 22.0-30.0 [facility] Comment on above: Performed By: #### H STROPN, CMP #### [facility] [address] [place] [address] Dr. Reba Landis Creatinine [Mass/Vol] 1.18 mg/dL Normal 0.66-1.25 [facility] Comment on above: Performed By: #### H STROPN, CMP #### [facility] [address] [place] [address] Dr. Reba Landis EGFR-AF GUAMANIAN >60 Normal >=60 [facility] Comment on above: Performed By: #### H STROPN, CMP #### [facility] [address] [place] [address] Dr. Reba Landis EGFR-NON AF GUAMANIAN >60 Normal >=60 [facility] Comment on above: Performed By: #### H STROPN, CMP #### [facility] [address] [place] [address] Dr. Reba Landis Globulin (S) [Mass/Vol] 4.2 g/dL Normal [facility] Comment on above: Performed By: #### H STROPN, CMP #### [facility] [address] [address] [address] Reba Landis Glucose [Mass/Vol] 204 mg/dL Critically high 74-106 T [facility] Comment on above: Performed By: #### H JEZ, CMP #### [facility] [address] [address] [address] Reba Landis Potassium [Moles/Vol] 4.5 mmol/L Normal 3.4-5.0 [facility] Comment on above: Performed By: #### H EDNAPN, CMP #### [facility] [address] [address] [address] Reba Landis Protein [Mass/Vol] 6.8 g/dL Normal 6.1-8.2 [facility] Comment on above: Performed By: #### H STROCALOS, CMP #### [facility] [address] [address] [address] Reba Landis Sodium [Moles/Vol] 138 mmol/L Normal 137-145 [facility] Comment on above: Performed By: #### H STROCALOS, CMP #### [facility] [address] [address] [address] Reba Landis Urea nitrogen [Mass/Vol] 19.0 mg/dL Normal 9.0-20.0 [facility] Comment on above: Performed By: #### H JEZ, CMP #### [facility] [address] [place] [address] Dr. Reba Landis Urea nitrogen/Creatinin e [Mass ratio] 16.1 mg/mg Normal [facility] Comment on above: Performed By: #### H STROPN, CMP #### [facility] [address] [address] [address] Reba Landis THEOPHYLLINEon 04-19-2021 THEOPHYLLINE 10.6 ug/mL Normal 8.0-20.0 [facility] Comment on above: Performed By: #### H STROPN, CMP #### [facility] [address] [address] [address] Reba Landis CBC W MANUAL DIFFon 04-18-20 21 ATYPICAL LYMPH # 0.00 103/ul Normal [facility] Comment on above: Performed By: #### C BC #### [facility] [address] [address] [address] Reba Landis ATYPICAL LYMPH % 0 % Normal [facility] Comment on above: Performed By: #### C BC #### [facility] [address] [place] [address] Dr. Reba Landis BAND # Normal 0.0-0.3 [facility] Comment on above: Performed By: #### C BC #### [facility] [address] [place] [address] Dr. Reba Landis BAND % Normal 0-5 [facility] Comment on above: Performed By: #### C BC #### [facility] [address] [place] [address] Dr. Reba Landis BASOM # 0.00 103/ul Normal 0.00-0.10 [facility] Comment on above: Performed By: #### C BC #### [facility] [address] [place] [address] Dr. Reba Landis BASOM % 0.0 % Critically low 0.2-2.0 [facility] Comment on above: Performed By: #### C BC #### [facility] [address] [place] [address] Dr. Reba Landis BLAST # Normal [facility] Comment on above: Performed By: #### C BC #### [facility] [address] [place] [address] Dr. Reba Landis BLAST % Normal [facility] Comment on above: Performed By: #### C BC #### [facility] [address] [place] [address] Dr. Reba Landis CORRECTED WBC Normal 4.0-11.0 [facility] Comment on above: Performed By: #### C BC #### [facility] [address] [place] [address] Dr. Reba Landis EOS # 0.09 103/ul Normal 0.00-0.70 [facility] Comment on above: Performed By: #### C BC #### [facility] [address] [place] [address] Dr. Reba Landis EOS% 1.0 % Normal 0.9-7.0 [facility] Comment on above: Performed By: #### C BC #### [facility] [address] [place] [address] Dr. Reba Landis HCT 43.9 % Normal 42.0-54.0 [facility] Comment on above: Performed By: #### C BC #### [facility] [address] [place] [address] Dr. Reba Landis HGB 14.1 g/dl Normal 14.0-18.0 [facility] Comment on above: Performed By: #### C BC #### [facility] [address] [place] [address] Dr. Reba Landis LYMPHM # 0.92 103/ul Critically low 1.20-3.80 [facility] Comment on above: Performed By: #### C BC #### [facility] [address] [place] [address] Dr. Reba Landis LYMPHM% 10.0 % Critically low 20.5-60.0 [facility] Comment on above: Performed By: #### C BC #### [facility] [address] [place] [address] Dr. Reba Landis MCH 28.7 pg Normal 25.9-34.0 [facility] Comment on above: Performed By: #### C BC #### [facility] [address] [place] [address] Dr. Reba Landis MCHC 32.1 g/dl Normal 29.9-35.2 [facility] Comment on above: Performed By: #### C BC #### [facility] [address] [place] [address] Dr. Reba Landis MCV 89.4 fL Normal 80.0-94.0 [facility] Comment on above: Performed By: #### C BC #### [facility] [address] [place] [address] Dr. Reba Landis METAMYELOCYTE # Normal [facility] Comment on above: Performed By: #### C BC #### [facility] [address] [place] [address] Dr. Reba Landis METAMYELOCYTE % Normal [facility] Comment on above: Performed By: #### C BC #### [facility] [address] [place] [address] Dr. Reba Landis MONOM# 0.18 103/ul Critically low 0.30-0.80 [facility] Comment on above: Performed By: #### C BC #### [facility] [address] [place] [address] Dr. Reba Landis MONOM% 2.0 % Normal 1.7-12.0 [facility] Comment on above: Performed By: #### C BC #### [facility] [address] [place] [address] Dr. Reba Landis MPV 11.1 fL Normal 9.5-13.5 [facility] Comment on above: Performed By: #### C BC #### [facility] [address] [place] [address] Dr. Reba Landis MYELOCYTE # Normal [facility] Comment on above: Performed By: #### C BC #### [facility] [address] [place] [address] Dr. Reba Landis MYELOCYTE % Normal [facility] Comment on above: Performed By: #### C BC #### [facility] [address] [place] [address] Dr. Reba Landis NRBC Normal [facility] Comment on above: Performed By: #### C BC #### [facility] [address] [place] [address] Dr. Reba Landis PLT 175 103/ul Normal 150-450 [facility] Comment on above: Performed By: #### C BC #### [facility] [address] [place] [address] Dr. Reba Landis RBC 4.91 106/ul Normal 4.70-6.10 [facility] Comment on above: Performed By: #### C BC #### [facility] [address] [place] [address] Dr. Reba Landis RDW 12.1 % Normal 11.0-15.0 [facility] Comment on above: Performed By: #### C BC #### [facility] [address] [place] [address] Dr. Reba Landis SEG # 8.00 103/ul Critically high 1.40-6.50 [facility] Comment on above: Performed By: #### C BC #### [facility] [address] [place] [address] Dr. Reba Landis SEG % 87.0 % Critically high 43.0-75.0 [facility] Comment on above: Performed By: #### C BC #### [facility] [address] [place] [address] Dr. Reba Landis WBC 9.2 103/ul Normal 4.0-11.0 [facility] Comment on above: Performed By: #### C BC #### [facility] [address] [place] [address] Dr. Reba Landis CRPon 04-18-2021 CRP [Mass/Vol] mg/L Critically high <=1.0 [facility] Comment on above: Performed By: #### C BC #### [facility] [address] [place] [address] Dr. Reba Landis PROF 14(COMP METB)on 021 Albumin [Mass/Vol] 2.8 g/dL Critically low 3.5-5.0 [facility] Comment on above: Performed By: #### C BC #### [facility] [address] [place] [address] Dr. Reba Landis Albumin/Globulin [Mass ratio] 0.6 {ratio} Normal [facility] Comment on above: Performed By: #### C BC #### [facility] [address] [place] [address] Dr. Reba Landis ALP [Catalytic activity/Vol] 86 U/L Normal 38-126 [facility] Comment on above: Performed By: #### C BC #### [facility] [address] [place] [address] Dr. Reba Landis ALT [Catalytic activity/Vol] 63 U/L Normal 21-72 [facility] Comment on above: Performed By: #### C BC #### [facility] [address] [address] [address] Reba Landis Anion gap [Moles/Vol] 12.7 mmol/L Normal [facility] Comment on above: Performed By: #### C BC #### [facility] [address] [address] [address] Reba Landis AST [Catalytic activity/Vol] 54 U/L Normal 17-59 [facility] Comment on above: Performed By: #### C BC #### [facility] [address] [address] [address] Reba Landis Bilirubin [Mass/Vol] 0.5 mg/dL Normal 0.2-1.3 [facility] Comment on above: Performed By: #### C BC #### [facility] [address] [place] [address] Dr. Reba Landis Calcium [Mass/Vol] 9.0 mg/dL Normal 8.4-10.2 [facility] Comment on above: Performed By: #### C BC #### [facility] [address] [place] [address] Dr. Reba Landis Chloride [Moles/Vol] 101 mmol/L Normal 98-107 [facility] Comment on above: Performed By: #### C BC #### [facility] [address] [address] [address] Reba Landis CO2 [Moles/Vol] 27.6 mmol/L Normal 22.0-30.0 [facility] Comment on above: Performed By: #### C BC #### [facility] [address] [address] [address] Reba Landis Creatinine [Mass/Vol] 0.97 mg/dL Normal 0.66-1.25 [facility] Comment on above: Performed By: #### C BC #### [facility] [address] [address] [address] Reba Landis EGFR-AF GUAMANIAN >60 Normal >=60 [facility] Comment on above: Performed By: #### C BC #### [facility] [address] [address] [address] Reba Landis EGFR-NON AF GUAMANIAN >60 Normal >=60 [facility] Comment on above: Performed By: #### C BC #### [facility] [address] [address] [address] Reba Landis Globulin (S) [Mass/Vol] 4.6 g/dL Normal [facility] Comment on above: Performed By: #### C BC #### [facility] [address] [address] [address] Reba Landis Glucose [Mass/Vol] 170 mg/dL Critically high 74-106 [facility] Comment on above: Performed By: #### C BC #### [facility] [address] [address] [address] Reba Landis Potassium [Moles/Vol] 4.3 mmol/L Normal 3.4-5.0 [facility] Comment on above: Performed By: #### C BC #### [facility] [address] [place] [address] Dr. Reba Landis Protein [Mass/Vol] 7.4 g/dL Normal 6.1-8.2 [facility] Comment on above: Performed By: #### C BC #### [facility] [address] [place] [address] Dr. Reba Landis Sodium [Moles/Vol] 137 mmol/L Normal 137-145 [facility] Comment on above: Performed By: #### C BC #### [facility] [address] [address] [address] Reba Landis Urea nitrogen [Mass/Vol] 13.0 mg/dL Normal 9.0-20.0 [facility] Comment on above: Performed By: #### C BC #### [facility] [address] [place] [address] Dr. Reba Landis Urea nitrogen/Creatinin e [Mass ratio] 13.4 mg/mg Normal [facility] Comment on above: Performed By: #### C BC #### [facility] [address] [place] [address] Dr. Reba Landis THEOPHYLLINEon 04-18-2021 THEOPHYLLINE 8.5 ug/mL Normal 8.0-20.0 [facility] Comment on above: Performed By: #### C BC #### [facility] [address] [place] [address] Dr. Reba Landis CBC AUTO DIFFon 04-17-2021 BASO # 0.0 103/ul Normal 0.0-0.1 [facility] Comment on above: Performed By: #### C BC #### [facility] [address] [place] [address] Dr. Reba Landis Basophils/100 WBC (Bld) 0.1 % Critically low 0.2-2.0 [facility] Comment on above: Performed By: #### C BC #### [facility] [address] [place] [address] Dr. Reba Landis EO # 0.0 103/ul Normal 0.0-0.7 [facility] Comment on above: Performed By: #### C BC #### [facility] [address] [place] [address] Dr. Reba Landis Eosinophils/100 WBC (Bld) 0.0 % Critically low 0.9-7.0 [facility] Comment on above: Performed By: #### C BC #### [facility] [address] [place] [address] Dr. Reba Landis Erythrocyte distribution width (RBC) [Ratio] 12.0 % Normal 11.0-15.0 [facility] Comment on above: Performed By: #### C BC #### [facility] [address] [place] [address] Dr. Reba Landis Hematocrit (Bld) [Volume fraction] 43.7 % Normal 42.0-54.0 [facility] Comment on above: Performed By: #### C BC #### [facility] [address] [place] [address] Dr. Reba Landis Hemoglobin (Bld) [Mass/Vol] 14.7 g/dL Normal 14.0-18.0 [facility] Comment on above: Performed By: #### C BC #### [facility] [address] [address] [address] Reba Landis IG # 0.22 10e3/ul Critically high 0.00-0.03 [facility] Comment on above: Performed By: #### C BC #### [facility] [address] [address] [address] Reba Landis IG % 1.4 % Critically high 0.0-0.5 [facility] Comment on above: Performed By: #### C BC #### [facility] [address] [address] [address] Reba Landis LYMPH # 0.9 103/ul Critically low 1.2-3.8 [facility] Comment on above: Performed By: #### C BC #### [facility] [address] [place] [address] Dr. Reba Landis Lymphocytes/100 WBC (Bld) 5.7 % Critically low 20.5-60.0 [facility] Comment on above: Performed By: #### C BC #### [facility] [address] [address] [address] Reba Landis MANUAL DIFF REQ NO Normal [facility] Comment on above: Performed By: #### C BC #### [facility] [address] [place] [address] Dr. Reba Landis MCH (RBC) [Entitic mass] 28.8 pg Normal 25.9-34.0 [facility] Comment on above: Performed By: #### C BC #### [facility] [address] [address] [address] Reba Landis MCHC (RBC) [Mass/Vol] 33.6 g/dL Normal 29.9-35.2 [facility] Comment on above: Performed By: #### C BC #### [facility] [address] [address] [address] Reba Landis MCV (RBC) [Entitic vol] 85.5 fL Normal 80.0-94.0 [facility] Comment on above: Performed By: #### C BC #### [facility] [address] [place] [address] Dr. Reba Landis MONO # 0.3 103/ul Normal 0.3-0.8 [facility] Comment on above: Performed By: #### C BC #### [facility] [address] [place] [address] Dr. Reba Landis Monocytes/100 WBC (Bld) 2.2 % Normal 1.7-12.0 [facility] Comment on above: Performed By: #### C BC #### [facility] [address] [place] [address] Dr. Reba Landis NEUT # 13.8 103/ul Critically high 1.4-6.5 [facility] Comment on above: Performed By: #### C BC #### [facility] [address] [place] [address] Dr. Reba Landis Neutrophils/100 WBC (Bld) 90.6 % Critically high 43.0-75.0 [facility] Comment on above: Performed By: #### C BC #### [facility] [address] [place] [address] Dr. Reba Landis Platelet mean volume (Bld) [Entitic vol] 11.3 fL Normal 9.5-13.5 [facility] Comment on above: Performed By: #### C BC #### [facility] [address] [place] [address] Dr. Reba Landis PLT 168 103/ul Normal 150-450 [facility] Comment on above: Performed By: #### C BC #### [facility] [address] [place] [address] Dr. Reba Landis RBC 5.11 106/ul Normal 4.70-6.10 [facility] Comment on above: Performed By: #### C BC #### [facility] [address] [place] [address] Dr. Reba Landis WBC 15.2 103/ul Critically high 4.0-11.0 [facility] Comment on above: Performed By: #### C BC #### [facility] [address] [place] [address] Dr. Reba Landis CRPon 04-17-2021 CRP [Mass/Vol] mg/L Critically high <=1.0 [facility] Comment on above: Performed By: #### C BC #### [facility] [address] [place] [address] Dr. Reba Landis CULTURE BLOODon 04-17-2021 Microscopic examination of blood, culture Culture Observations: NO GROWTH AT 5 DAYS. [facility] Comment on above: Performed By: #### H STROPN, CMP #### [facility] [address] [place] [address] Dr. Reba Landis Microscopic examination of blood, culture Culture Observations: NO GROWTH AT 5 DAYS. [facility] Comment on above: Performed By: #### H STROPN, CMP #### [facility] [address] [place] [address] Dr. Reba Landis CULTURE SPUTUMon 04-17-2021 CULTURE SPUTUM Culture Observations : NORMAL RESPIRATORY JIN. [facility] Comment on above: Performed By: #### H STROPN, CMP #### [facility] [address] [place] [address] Dr. Reba Landis LACTATE/LACTIC ACIDon 2020 Lactate [Moles/Vol] 1.7 mmol/L Normal 0.7-2.0 [facility] Comment on above: Performed By: #### H STROPN, CMP #### [facility] [address] [place] [address] Dr. Reba Landis Lactate [Moles/Vol] 1.6 mmol/L Normal 0.7-2.0 [facility] Comment on above: Performed By: #### L ACT #### [facility] [address] [place] [address] Dr. Reba Landis PROF 14(COMP METB)on 021 Albumin [Mass/Vol] 3.3 g/dL Critically low 3.5-5.0 [facility] Comment on above: Performed By: #### C BC #### [facility] [address] [place] [address] Dr. Reba Landis Albumin/Globulin [Mass ratio] 0.8 {ratio} Normal [facility] Comment on above: Performed By: #### C BC #### [facility] [address] [place] [address] Dr. Reba Landis ALP [Catalytic activity/Vol] 68 U/L Normal 38-126 [facility] Comment on above: Performed By: #### C BC #### [facility] [address] [address] [address] Reba Landis ALT [Catalytic activity/Vol] 41 U/L Normal 21-72 [facility] Comment on above: Performed By: #### C BC #### [facility] [address] [place] [address] Dr. Reba Landis Anion gap [Moles/Vol] 15.2 mmol/L Normal [facility] Comment on above: Performed By: #### C BC #### [facility] [address] [place] [address] Dr. Reba Landis AST [Catalytic activity/Vol] 32 U/L Normal 17-59 [facility] Comment on above: Performed By: #### C BC #### [facility] [address] [address] [address] Reba Landis Bilirubin [Mass/Vol] 0.8 mg/dL Normal 0.2-1.3 [facility] Comment on above: Performed By: #### C BC #### [facility] [address] [place] [address] Dr. Reba Landis Calcium [Mass/Vol] 8.9 mg/dL Normal 8.4-10.2 [facility] Comment on above: Performed By: #### C BC #### [facility] [address] [address] [address] Reba Landis Chloride [Moles/Vol] 95 mmol/L Critically low 98-107 [facility] Comment on above: Performed By: #### C BC #### [facility] [address] [address] [address] Reba Landis CO2 [Moles/Vol] 27.1 mmol/L Normal 22.0-30.0 [facility] Comment on above: Performed By: #### C BC #### [facility] [address] [address] [address] Reba Landsi Creatinine [Mass/Vol] 1.05 mg/dL Normal 0.66-1.25 [facility] Comment on above: Performed By: #### C BC #### [facility] [address] [address] [address] Reba Landis EGFR-AF GUAMANIAN >60 Normal >=60 [facility] Comment on above: Performed By: #### C BC #### [facility] [address] [address] [address] Reba Landis EGFR-NON AF GUAMANIAN >60 Normal >=60 [facility] Comment on above: Performed By: #### C BC #### [facility] [address] [address] [address] Reba Landis Globulin (S) [Mass/Vol] 4.4 g/dL Normal [facility] Comment on above: Performed By: #### C BC #### [facility] [address] [place] [address] Dr. Reba Landis Glucose [Mass/Vol] 133 mg/dL Critically high 74-106 T [facility] Comment on above: Performed By: #### C BC #### [facility] [address] [place] [address] Dr. Reba Landis Potassium [Moles/Vol] 3.3 mmol/L Critically low 3.4-5.0 [facility] Comment on above: Performed By: #### C BC #### [facility] [address] [place] [address] Dr. Reba Landis Protein [Mass/Vol] 7.7 g/dL Normal 6.1-8.2 [facility] Comment on above: Performed By: #### C BC #### [facility] [address] [place] [address] Dr. Reba Landis Sodium [Moles/Vol] 134 mmol/L Critically low 137-145 [facility] Comment on above: Performed By: #### C BC #### [facility] [address] [address] [address] Reba Landis Urea nitrogen [Mass/Vol] 10.0 mg/dL Normal 9.0-20.0 [facility] Comment on above: Performed By: #### C BC #### [facility] [address] [place] [address] Dr. Reba Landis Urea nitrogen/Creatinin e [Mass ratio] 9.5 mg/mg Normal [facility] Comment on above: Performed By: #### C BC #### [facility] [address] [place] [address] Dr. Reba Landis SPUTUM GRAM STAINon 04-17-20 COMMENTS Normal [facility] Comment on above: Performed By: #### C BC #### [facility] [address] [place] [address] Dr. Reba Landis DIPHTHEROIDS Normal [facility] Comment on above: Performed By: #### C BC #### [facility] [address] [place] [address] Dr. Reba Landis EPITHELIALS <25 Normal [facility] Comment on above: Performed By: #### C BC #### [facility] [address] [address] [address] Reba Landis FUNGAL ELEMENTS Normal [facility] Comment on above: Performed By: #### C BC #### [facility] [address] [place] [address] Dr. Reba MARCELINO NEG BACILLI MODERATE Normal [facility] Comment on above: Performed By: #### C BC #### [facility] [address] [place] [address] Dr. Reba MARCELINO NEG DIPPLOCOCCI Normal [facility] Comment on above: Performed By: #### C BC #### [facility] [address] [place] [address] Dr. Reba MARCELINO POS BACILLI MODERATE Normal [facility] Comment on above: Performed By: #### C BC #### [facility] [address] [place] [address] Dr. Reba Landis GRAM POSITIVE COCCI MODERATE Normal [facility] Comment on above: Performed By: #### C BC #### [facility] [address] [place], [place] [address] Dr. Reba Landis WBC (Bld) [#/Vol] 10*3/uL Normal [facility] Comment on above: Performed By: #### C BC #### [facility] [address] [place], [place] [address] Dr. Reba Landis TROPONIN, HIGH SENSITIVITYon 04-17-2021 HSTROP 7.7 pg/mL Normal 4.0-42.2 [facility] Comment on above: Result Comment: CUT- OFF POINTS HAVE BEEN ESTABLISHED BASED ON THE FOURTH UNIVERSAL DEFINITIONS OF MYOCARDIAL INFARCTION. THE UPPER REFERENCE LIMIT (URL) OF TROPONIN, DEFINED THE 99TH PERCENTILE OF cTnI DISTRIBUTION IN A REFERENCE POPULATION, HAS BEEN CONFIRMED THE DECISION THRESHOLD FOR TX DIAGNOSIS. Performed By: #### C BC #### [facility] [address] [place] [address] Dr. Reba Landis HSTROP 7.0 pg/mL Normal 4.0-42.2 [facility] Comment on above: Result Comment: CUT- OFF POINTS HAVE BEEN ESTABLISHED BASED ON THE FOURTH UNIVERSAL DEFINITIONS OF MYOCARDIAL INFARCTION. THE UPPER REFERENCE LIMIT (URL) OF TROPONIN, DEFINED THE 99TH PERCENTILE OF cTnI DISTRIBUTION IN A REFERENCE POPULATION, HAS BEEN CONFIRMED THE DECISION THRESHOLD FOR TX DIAGNOSIS. Performed By: #### C BC #### [facility] [address] [place] [address] Dr. Reba Landis XR CHEST 1 Von 04-17-2021 XR CHEST 1 V EXAM: XR CHEST 1 V 04/17/2021 3:36 AM EST [id number] CLINICAL STATEMENT: SHORTNESS OF BREATH COMPARISON: No prior studies are available at the time of dictation. TECHNIQUE: Single AP radiograph of the chest is submitted. FINDINGS: There is bilateral lower lobe subsegmental atelectasis and/or airspace disease. Decreased lung volume. The cardiac silhouette is normal. The costophrenic recesses are sharp. No pneumothorax. The bony elements are unremarkable. IMPRESSION: Bilateral lower lobe subsegmental atelectasis and/or airspace disease. Decreased lung volume. FOLLOW-UP: Follow-up as clinically indicated. Electronically authenticated by: CHRISTINE PRYOR Date: 2021-04-17 04:57 Normal [facility] CBC W MANUAL DIFFon 04-15-20 21 ATYPICAL LYMPH # Normal [facility] Comment on above: Performed By: #### H STROPN, CMP #### [facility] [address] [address] [address] Reba Landis ATYPICAL LYMPH % Normal [facility] Comment on above: Performed By: #### H STROPN, CMP #### [facility] [address] [address] [address] Reba Landis BAND # Normal 0.0-0.3 [facility] Comment on above: Performed By: #### H STROPN, CMP #### [facility] [address] [address] [address] Reba Landis BAND % Normal 0-5 [facility] Comment on above: Performed By: #### H STROPN, CMP #### [facility] [address] [place] [address] Dr. Reba Landis BASOM # 0.00 103/ul Normal 0.00-0.10 [facility] Comment on above: Performed By: #### H STROPN, CMP #### [facility] [address] [address] [address] Reba Landis BASOM % 0.0 % Critically low 0.2-2.0 [facility] Comment on above: Performed By: #### H STROPN, CMP #### [facility] [address] [address] [address] Reba Landis BLAST # Normal [facility] Comment on above: Performed By: #### H STROPN, CMP #### [facility] [address] [place] [address] Dr. Reba Landis BLAST % Normal [facility] Comment on above: Performed By: #### H STROPN, CMP #### [facility] [address] [place] [address] Dr. Reba Landis CORRECTED WBC Normal 4.0-11.0 [facility] Comment on above: Performed By: #### H STROPN, CMP #### [facility] [address] [place] [address] Dr. Reba Landis EOS # 0.00 103/ul Normal 0.00-0.70 [facility] Comment on above: Performed By: #### H STROPN, CMP #### [facility] [address] [address] [address] Reba Landis EOS% 0.0 % Critically low 0.9-7.0 [facility] Comment on above: Performed By: #### H STROPN, CMP #### [facility] [address] [address] [address] Reba Landis HCT 44.6 % Normal 42.0-54.0 [facility] Comment on above: Performed By: #### H STROPN, CMP #### [facility] [address] [address] [address] Reba Landis HGB 15.4 g/dl Normal 14.0-18.0 [facility] Comment on above: Performed By: #### H STROPN, CMP #### [facility] [address] [place] [address] Dr. Reba Landis LYMPHM # 0.34 103/ul Critically low 1.20-3.80 [facility] Comment on above: Performed By: #### H STROPN, CMP #### [facility] [address] [place] [address] Dr. Reba Landis LYMPHM% 6.0 % Critically low 20.5-60.0 [facility] Comment on above: Performed By: #### H STROPN, CMP #### [facility] [address] [place] [address] Dr. Reba Landis MCH 29.7 pg Normal 25.9-34.0 [facility] Comment on above: Performed By: #### H STROPN, CMP #### [facility] [address] [address] [address] Reba Landis MCHC 34.5 g/dl Normal 29.9-35.2 [facility] Comment on above: Performed By: #### H STROPN, CMP #### [facility] [address] [place] [address] Dr. Reba Landis MCV 86.1 fL Normal 80.0-94.0 [facility] Comment on above: Performed By: #### H STROPN, CMP #### [facility] [address] [place] [address] Dr. Reba Landis METAMYELOCYTE # Normal [facility] Comment on above: Performed By: #### H STROPN, CMP #### [facility] [address] [place] [address] Dr. Reba Landis METAMYELOCYTE % Normal [facility] Comment on above: Performed By: #### H STROPN, CMP #### [facility] [address] [place] [address] Dr. Reba Landis MONOM# 0.22 103/ul Critically low 0.30-0.80 [facility] Comment on above: Performed By: #### H STROPN, CMP #### [facility] [address] [place] [address] Dr. Reba Landis MONOM% 4.0 % Normal 1.7-12.0 [facility] Comment on above: Performed By: #### H STROPN, CMP #### [facility] [address] [place] [address] Dr. Reba Landis MPV 10.7 fL Normal 9.5-13.5 [facility] Comment on above: Performed By: #### H STROPN, CMP #### [facility] [address] [place] [address] Dr. Reba Landis MYELOCYTE # Normal [facility] Comment on above: Performed By: #### H STROPN, CMP #### [facility] [address] [place] [address] Dr. Reba Landis MYELOCYTE % Normal [facility] Comment on above: Performed By: #### H STROPN, CMP #### [facility] [address] [place] [address] Dr. Reba Landis NRBC Normal [facility] Comment on above: Performed By: #### H STROPN, CMP #### [facility] [address] [place] [address] Dr. Reba Landis PLT 153 103/ul Normal 150-450 [facility] Comment on above: Performed By: #### H STROPN, CMP #### [facility] [address] [address] [address] Reba Landis RBC 5.18 106/ul Normal 4.70-6.10 [facility] Comment on above: Performed By: #### H STROPN, CMP #### [facility] [address] [address] [address] Reba Landis RDW 11.9 % Normal 11.0-15.0 [facility] Comment on above: Performed By: #### H STROPN, CMP #### [facility] [address] [address] [address] Reba Landis SEG # 5.04 103/ul Normal 1.40-6.50 [facility] Comment on above: Performed By: #### H STROPN, CMP #### [facility] [address] [place] [address] Dr. Reba Landis SEG % 90.0 % Critically high 43.0-75.0 [facility] Comment on above: Performed By: #### H STROPN, CMP #### [facility] [address] [place] [address] Dr. Reba Landis WBC 5.6 103/ul Normal 4.0-11.0 [facility] Comment on above: Performed By: #### H STROPN, CMP #### [facility] [address] [place] [address] Dr. Reba Landis CTA CHEST WO W CONon 04-15- 021 CTA CHEST WO W CON EXAMINATION: CTA JACIEL ST WO W CON HISTORY: Pulmonary embolism , acute fever, decreasing O2 saturation COMPARISON: No relevant comparison available. TECHNIQUE: Multi-planar CT images were created with IV contrast. Axial, Coronal, and Sagittal images. Dose reduction techniques were achieved by using automated exposure control and/or adjustment of mA and/or kV according to patient size and/or use of iterative reconstruction technique. 3-D reconstruction was performed on a separate workstation. FINDINGS: VASCULATURE: No pulmonary embolism or abnormal opacity. LUNGS: Numerous dense patchy infiltrates scattered throughout the lungs. PLEURA: No mass, effusion, or pneumothorax. CYRUS: No mass or adenopathy. MEDIASTINUM: No mass or adenopathy. CARDIAC: No enlargement, pericardial effusion, or pericardial thickening. AORTA: No aneurysm or dissection. CHEST WALL: No mass or axillary adenopathy. BONES: No bone lesion or fracture. LIMITED ABDOMEN: No suspicious findings. Limited images of the upper abdomen. OTHER: Negative. IMPRESSION: 1. No pulmonary embolism. 2. Moderate bilateral pulmonary infiltrates suggestive of pneumonia. Electronically authenticated by: ASHELY CAMPOS Date: 2021-04-15 15:59 Normal [facility] LACTATE/LACTIC ACIDon 2020 Lactate [Moles/Vol] 1.6 mmol/L Normal 0.7-2.0 [facility] Comment on above: Performed By: #### H JEZ, CMP #### [facility] [address] [place] [address] Dr. Reba Landis PROF 14(COMP METB)on 021 Albumin [Mass/Vol] 3.8 g/dL Normal 3.5-5.0 [facility] Comment on above: Performed By: #### H JEZ, CMP #### [facility] [address] [address] [address] Reba Landis Albumin/Globulin [Mass ratio] 0.9 {ratio} Normal [facility] Comment on above: Performed By: #### H JEZ, CMP #### [facility] [address] [address] [address] Reba Landis ALP [Catalytic activity/Vol] 68 U/L Normal 38-126 [facility] Comment on above: Performed By: #### H STROPN, CMP #### [facility] [address] [address] [address] Reba Landis ALT [Catalytic activity/Vol] 27 U/L Normal 21-72 [facility] Comment on above: Performed By: #### H STROPN, CMP #### [facility] [address] [address] [address] Reba Landis Anion gap [Moles/Vol] 11.0 mmol/L Normal [facility] Comment on above: Performed By: #### H STROPN, CMP #### [facility] [address] [address] [address] Reba Landis AST [Catalytic activity/Vol] 23 U/L Normal 17-59 [facility] Comment on above: Performed By: #### H STROPN, CMP #### [facility] [address] [address] [address] Reba Landis Bilirubin [Mass/Vol] 0.5 mg/dL Normal 0.2-1.3 [facility] Comment on above: Performed By: #### H STROPN, CMP #### [facility] [address] [address] [address] Reba Landis Calcium [Mass/Vol] 8.9 mg/dL Normal 8.4-10.2 [facility] Comment on above: Performed By: #### H STROPN, CMP #### [facility] [address] [address] [address] Reba Landis Chloride [Moles/Vol] 99 mmol/L Normal 98-107 [facility] Comment on above: Performed By: #### H STROPN, CMP #### [facility] [address] [address] [address] Reba Landis CO2 [Moles/Vol] 28.9 mmol/L Normal 22.0-30.0 [facility] Comment on above: Performed By: #### H STROPN, CMP #### [facility] [address] [address] [address] Reba Landis Creatinine [Mass/Vol] 1.17 mg/dL Normal 0.66-1.25 [facility] Comment on above: Performed By: #### H STROPN, CMP #### [facility] [address] [address] [address] Reba Landis EGFR-AF GUAMANIAN >60 Normal >=60 [facility] Comment on above: Performed By: #### H STROPN, CMP #### [facility] [address] [address] [address] Reba Landis EGFR-NON AF GUAMANIAN >60 Normal >=60 [facility] Comment on above: Performed By: #### H STROPN, CMP #### [facility] [address] [address] [address] Reba Landis Globulin (S) [Mass/Vol] 4.3 g/dL Normal [facility] Comment on above: Performed By: #### H STROPN, CMP #### [facility] [address] [address] [address] Reba Landis Glucose [Mass/Vol] 205 mg/dL Critically high 74-106 T [facility] Comment on above: Performed By: #### H STROPN, CMP #### [facility] [address] [address] [address] Reba Landis Potassium [Moles/Vol] 3.9 mmol/L Normal 3.4-5.0 [facility] Comment on above: Performed By: #### H STROPN, CMP #### [facility] [address] [place] [address] Dr. Reba Landis Protein [Mass/Vol] 8.1 g/dL Normal 6.1-8.2 [facility] Comment on above: Performed By: #### H STROPN, CMP #### [facility] [address] [address] [address] Reba Landis Sodium [Moles/Vol] 135 mmol/L Critically low 137-145 [facility] Comment on above: Performed By: #### H STROPN, CMP #### [facility] [address] [address] [address] Reba Landis Urea nitrogen [Mass/Vol] 7.0 mg/dL Critically low 9.0-20.0 [facility] Comment on above: Performed By: #### H STROPN, CMP #### [facility] [address] [address] [address] Reba Landis Urea nitrogen/Creatinin e [Mass ratio] 6.0 mg/mg Normal [facility] Comment on above: Performed By: #### H STROPN, CMP #### [facility] [address] [address] [address] Reba Landis PROTIMEon 04-15-2021 INR Coag (PPP) [Relative time] 0.96 {INR} Normal [facility] Comment on above: Performed By: #### C BC #### [facility] [address] [place] [address] Dr. Reba Landis INR GUIDELINES SEE BELOW Normal [facility] Comment on above: Result Comment: ROM RED INR: 2.0 - 3.0 CONDITIONS NOT LISTED BELOW 2.5 - 3.5 FOR PROSTHETIC HEART VALVE REPLACEMENT 2.5 - 3.5 RECURRENT THROMBOSIS Performed By: #### C BC #### [facility] [address] [place] [address] Dr. Reba Landis PT Coag (PPP) [Time] 10.4 s Normal 9.0-11.6 [facility] Comment on above: Performed By: #### C BC #### [facility] [address] [place] [address] Dr. Reba Landis PTTon 04-15-2021 aPTT Coag (Bld) [Time] 36.6 s Critically high 22.3-36.2 [facility] Comment on above: Performed By: #### C BC #### [facility] [address] [place] [address] Dr. Reba Landis TROPONIN, HIGH SENSITIVITYon 04-15-2021 HSTROP 6.2 pg/mL Normal 4.0-42.2 [facility] Comment on above: Result Comment: CUT- OFF POINTS HAVE BEEN ESTABLISHED BASED ON THE FOURTH UNIVERSAL DEFINITIONS OF MYOCARDIAL INFARCTION. THE UPPER REFERENCE LIMIT (URL) OF TROPONIN, DEFINED THE 99TH PERCENTILE OF cTnI DISTRIBUTION IN A REFERENCE POPULATION, HAS BEEN CONFIRMED THE DECISION THRESHOLD FOR TX DIAGNOSIS. Performed By: #### H STROPN, CMP #### [facility] [address] [place] [address] Dr. Reba Landis History and Physical - Surgi tree Update < 30 dayson 03-13-2020 History and Physical - Surgical Update < 30 days History & Physical Reviewed: I have reviewed the History and Physical dated: 19-Feb-2020 History and Physical reviewed and relevant findings noted. Patient examined to review pertinent physical findings.: No significant changes Home Medications Reviewed: no changes noted Allergies Reviewed: no changes noted ERAS (Enhanced Recovery After Surgery): ERAS Patient: no Consent: COVID-19 Consent: COVID-19 Risk ConsentSurgeon has reviewed martinez risks related to the risk of emi COVID-19 and if they contract COVID-19 what the risks are. Signatures/Attestation: Note Completion: Attending Provider Inpatient Certification StatementObservation patient/other outpatient visits Electronic Signatures: Stevenson Art () (Signed 13-Mar-2020 07:58) Authored: History & Physical Reviewed, ERAS, Consent, Note Completion Last Updated: 13-Mar-2020 07:58 by Stevenson Art () [facility] [place], [place] Patient Profile - Preop v2on 03-13-2020 Patient Profile - Preop v2 Profile: Initial Info: How to be AddressedJOSH Spoken Language PreferredEnglish Source of Informationpatient Are you currently using the Personal Electronic Health Record or [facility] Stated 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 for 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 Primary Contact Name and [phone] Limitations on Visitors/Phone Callsnone Patient Belongingsremains with patient Patient Belongings Remaining with Patientclothing; GLASSES, CELL, WALLET Medications Brought to Hospitalno General Health: Weight in kg115.9 kilogram(s) Weight in pps356.5 pound(s) Weight Methodstated Height in feet5 feet Height in inch(es) Height in cm180.3 centimeter(s) Height Methodstated BMI (kg/m2)35.652 square meter Patient or Family Member Reaction to Anesthesiano previous reaction Blood Avoidance/Restrictionsnone Previous Transfusion ReactionPT REPORTS HAS NEVER RECEIVED BLOOD TRANSFUSION Health Mgmt: Symptoms/Conditions Managed at HomeHTN- CURRENTLY TAKING NO MEDS Barriers to Managing Healthnone Relationship/Environ: Living Arrangementshouse Lives Withdependent child(rasheeda); spouse Resource/Environmental Concernsnone [facility] Anticipated at Transitionnone Substance: Current or Former Substance Use never: Cigarette/Tobacco, e-Cigarette/Vaping, Street Drugs YES: Alcohol Alcohol Use Statuscurrent alcohol Alcohol Amount1-2 drinks Alcohol Frequencymonthly or less Problems Related to Alcohol Useno Alcohol Use Additional CommentsRARE Risk Screens: COVID-19 Screening Completedno exposure or symptoms Advance Directive/DNRno Advance Directive Information Givenpatient/family declined Advance Directive Mental Healthnot applicable During the past month, have you often been bothered by feeling down, depressed or hopelessno During the past month, have you often had little interest or pleasure in doing thingsno Have you had any thoughts of harming yourselfno Have you had any thoughts of harming anyone elseno Are you or have you been threatened or abused physically,emotionally or sexually abused by anyoneno Do you feel UNSAFE going back to the place you are livingno Patient is Able to be Assessed for Learningyes Factors Influencing Readiness to LearnNONE Factors that Impact Ability to Learnnone Devices/Methods Used to Communicatenone Learning Preferencesverbal instruction; individual instruction Cultural Considerationsnone Developmental Considerationsnone Lutheran Considerationsnone Other learner availableno [place] RiskPatient location auto qualifies him/her for HIGH RISK. Are there any cultural, spiritual, baptism practices/values/needs that are important for us to knowno Do you want a visit/item from [facility] Would you like your Audio Visual Engineer/Regional Education Manager notifiedno Pain Scalenumerical 0-10 Pain Scale Educationteaching provided Current Pain Level0 = None Acceptable Pain Level4 = Moderate Lifestyle Changes/Adaptations in Response to Painno change Chronic Painno Information Review: Allergies, Home Meds and Significant Events have been Reviewed and Verified with Patient/Familyyes Allergy, Intolerance, Adverse Event: Allergies: No Known Allergies: Active Electronic Signatures: Lyudmila Marcos (JAY) (Signed 13-Mar-2020 07:31) Authored: Initial Info, General Health, Health Mgmt, Relationship/Environ, Substance, Risk Screens, Additional Information Last Updated: 13-Mar-2020 07:31 by Lyudmila Marcos) [facility] [place], [place] Preop Checkliston 03-13-2020 Preop Checklist Preop Checklist: Preop Checklist: Arrival [id number] Arrival Time00:16 Procedure TypeRIGHT TRIGGER FINGER RELEASE INDEX FINGER AND MASS EXCISION Temperature C36.9 degrees C Temperature F98.4 degrees F Heart Rate85 beats per minute Respiratory Rate18 breath per minute Blood Pressure Lccsdamn584 mm/Hg Blood Pressure Cuagtgltu95 mm/Hg NPO [id number] 21:00 ID Band Onyes Allergy Bandno known allergies Consent Signedyes H&P Completeyes Anesthesia Assessment Completedyes EKG Performednot ordered Chest X-Ray Performednot ordered HCG Urine TestN/A Chlorhexadine Bath Givennot applicable Nasal Antiseptic Appliednot applicable Hair Washedyes Soap and water bath with hair shampoo the night before surgeryyes Hat placed on infant prior to transportnot applicable SCD's Appliednot applicable Denturesnot applicable Prostheticsnot applicable Hearing Aidsnot applicable Valuables SecuredCLOTHES AND CELL WITH PT Glasses / ContactsWITH PT Bowel Prepno Cardiovascular Assessment: Apicalregular Radial Pulsespalpable Pedal Pulsespalpable Extremitieswarm, well perfused Respiratory Assessment: Respirationsunlabored regular Air Exchangeequal, good Breath Soundsclear Neurological Assessment: Level of Consciousnessalert, oriented Mobilitymoves all extremities Able to Express Selfyes Age Appropriateyes Emotional Statuscalm Preop Education: Surgical Site Infection Preventionyes Pain Scales and Managementyes Language / Communication: Language / CommunicationEnglish Electronic Signatures: Lyudmila Marcos (RN) (Signed 13-Mar-2020 07:33) Authored: Preop Checklist Last Updated: 13-Mar-2020 07:33 by Lyudmila Marcos (JAY) [facility] [place], [place] Surgical Specimenon 10-04-19 Surgical Specimen [facility] [address] [place] [address] FINAL SURGICAL PATHOLOGY REPORT Patient Name: CHIP HURTADO Accession No: [id number] Age Sex: 1980 Location: [facility] Account No: [id number] Collected: 10/04/2019 Med Rec No: [id number] Received: 10/04/2019 Attend Phys: STEVENSON ART DO Completed: 10/05/2019 Perform Phys: STEVENSON ART DO FINAL DIAGNOSIS: LEFT PALMAR MASS- MULTILOCULATED GANGLION CYST. ERIC/ERIC CLINICAL INFORMATION: Left palmar mass, complex cyst. SPECIMEN: Left Pool Mass GROSS DESCRIPTION: The specimen is received in formalin in a container labeled Chip Hurtado and designated as hand . The specimen consists of a pinkish-santoyo soft tissue fragment measuring 2.0 x 1.8 x 0.2 cm. The specimen is submitted in toto in cassette A1. ERIC/LANDEN CPT: 80418 X1 TESHA TANG M.D. 10/05/2019 Electronically signed out by Page 1 of 1 [facility] Comment on above: Performed By: #### S UR #### [facility] [address] [place] [address] COVID-19, NAAon 10-01-2019 COVID-19, RADHA Not Detected Normal Not Detect [facility] Comment on above: Result Comment: This test was developed and its performance characteristics determined by [employer]. This test has not been FDA cleared or approved. This test has been authorized by FDA under an Emergency Use Authorization (EUA). This test has been validated in accordance with the FDA's Guidance Document (Policy for Diagnostics Testing in Laboratories Certified to Perform High Complexity Testing under CLIA prior to Emergency Use Authorization for Coronavirus Disease-2019 during the Public Health Emergency) issued on July 29, 2019. FDA independent review of this validation is pending. This test is only authorized for the duration of time the declaration that circumstances exist justifying the authorization of the emergency use of in vitro diagnostic tests for detection of SARS CoV-2 virus and/or diagnosis of COVID-19 infection under section 564(b)(1) of the Act, 21 U.S.C. 360bbb-3(b)(1), unless the authorization is terminated or revoked sooner. Performed at: [facility] [address] [facility], [place] [id number] Victims Advocate Clerk/Specialist: Violeta Herrmann MD, Phone: [phone] Performed By: #### I RCOV #### [facility] [address] [place] [address] COVID-19, NAAon 09-29-2019 Source Swab OP swab Normal [facility] Comment on above: Performed By: #### I RCOV #### [facility] [address] [place] [address] Established Visit (Orthopaed ic Surgery)on 09-26-2019 Established Visit (Orthopaedic Surgery) Chief Complaint Lt pool mass of unclear orgin mri review History of Present IllnessThe patient presents today for ongoing evaluation of his left palm. He was noted to have a left palmar mass. He underwent MRI that showed evidence for complex cystic-type structure. He presents today stating that the mass has slightly decreased in size. He does find it still to be irritating with filling technician. Occasionally, he has median nerve symptoms associated with filling technician. He will forcefully filling technician an object and has a zinger that goes down into the index, long and thumb. He denies associated constitutional symptoms. He still has the painful right hand mass as well localized to the level of the A1 jennie to the index. This is bad with forceful filling technician as well. Active Problems Hand pain (729.5) (M79.643) Mass of left hand (782.2) (R22.32) Past Medical History The patient's past medical history, family history, social history, and review of systems were documented on the patient medical intake form. The medical intake form was reviewed and scanned into the electronic medical record for future use. History is otherwise negative except as stated in the HPI. Family History No pertinent family history Social History Never a smoker Allergies No Known Drug Allergies Recorded By: Adela Amaya; 08/15/2019 10:32:17 AM Current Meds Lisinopril TABS; Therapy: (Recorded:15Aug2019) to Recorded Dispense: 0 Days ; #: Sufficient; Refill: 0; NICOLE = N; Record; Last Updated By: Adela Amaya; 08/15/2019 10:32:17 AM Physical Exam GENERAL: Alert and oriented to person, place, and time. No acute distress and breathing comfortably; pleasant and cooperative with the examination. HEENT: Head is normocephalic and atraumatic. NECK: Supple, no visible swelling. CARDIOVASCULAR: No palpable tachycardia. LUNGS: No audible wheezing or labored breathing. ABDOMEN: Nondistended. EXTREMITIES: Evaluation of bilateral upper extremities finds the patient to have a palpable radial artery at the wrist with brisk capillary refill to all digits. The patient has intact sensorium to axillary, radial, median and ulnar nerves. There are no open wounds. There are no signs of infection. There is no evidence of lymphedema or lymphatic streaking. The patient has supple compartments of the bilateral arms, forearms and hands. Focally tender mass over the A1 jennie to the right index. The mass to the left palm seems to be slightly decreased in size. It is palpable just distal to the transverse carpal ligament in line with the long finger. Diagnoses/Problems Left palmar mass likely consistent with complex multiloculated ganglion. Health Management Treatment options were discussed. We talked about simple observation versus steroid injection in the office versus surgical resection. I do not believe that it is likely the cyst will resolve on its own in the absence of surgery. After a full discussion regarding the risks, benefits and alternatives, he elects to proceed forth with open resection of the mass under general anesthesia with tourniquet control. He needs to discuss this with work to determine when he can have enough time off to have the procedure done. 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 I will see him for ongoing followup status post surgery. Signatures Electronically signed by : Darlyn Resendiz, ; Sep 25 2019 12:18PM EST (Clerical And Administrative Workers/Recorder ) Electronically signed by : Stevenson Art DO; Sep 26 2019 3:29PM EST Normal [facility] MRI HAND W/O-W CONTRASTon MRI HAND W/O-W CONTRAST Patient Name: CHIP HURTADO STUDY: MRI HAND W/O-W CONTRAST; 08/31/2019 10:27 am INDICATION: pain. Palmar mass and pain. Gradual increase in size over the with 2 months. COMPARISON: None. ACCESSION NUMBER(S): [id number] ORDERING CLINICIAN: STEVENSON ART TECHNIQUE: Multiplanar and multisequential MR images of the left hand are performed. The study is supplemented with 3 plane post gadolinium fat saturated T1 weighted sequences. 20 cc of intravenous MultiHance was utilized. FINDINGS: There is a multi lobular space-occupying lesion in the palmar soft tissues of the hand just superficial to the flexor tendons. This extends from the level of the CMC joints to the mid 3rd metacarpal diaphysis. The lesion measures 4 cm in craniocaudal diameter, 1.2 cm in transverse diameter, and 0.9 cm in maximum AP diameter. The lesion is of homogeneous fluid signal on both T2 weighted and T1 weighted sequences. On post linear sequences there is thin these wall enhancement. Few thin internal septations are noted. There is minimal enhancement in the adjacent soft tissues though no enhancing nodular soft tissue component. There is no evidence of intramuscular mass or fluid collection. There is some mild enhancement in the deep adductor pollicis muscle belly distally. The proximal muscle is of normal signal. There is no increased T1 weighted signal or atrophy. There is no deep fascial fluid. The visualized flexor tendons and extensor tendons are intact. There is no fluid accumulation in the carpal tunnel. The visualized portions of the TFCC and intracarpal ligaments are preserved. There is no evidence of acute fracture, bone marrow edema, or osseous mass. The joint spaces are unremarkable. IMPRESSION: 4.0 x 1.2 x 0.9 cm multilocular cystic mass in the palmar soft tissues overlying the proximal 3rd metacarpal. This finding lies superficial to the flexor tendons and most likely represents ganglion. Mild enhancement within the distal adductor pollicis of uncertain significance. Denervation is unlikely given the proximal muscle is of normal signal. This appearance could be artifactual. No acute osseous abnormality. 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 He describes a painful cyst about the palmar aspect of his left hand located just ulnar to the thenar flexion crease and just distal to the transverse carpal ligament. He states that this has gradually enlarged over the last [id number]-half or so. He also describes a painful mass about the right index finger at approximately the level of the leading edge of the A1 jennie slightly ulnar to midline. He denies previous penetrating trauma. No associated constitutional symptoms. He has greatest concern for what is happening on the left side, although he does explain that the right is extremely painful at times if he angular js developer something the right way. Active Problems Hand pain (729.5) (M79.643) Past Medical History The patient's past medical history, family history, social history, and review of systems were documented on the patient medical intake form. The medical intake form was reviewed and scanned into the electronic medical record for future use. History is otherwise negative except as stated in the HPI. Family History No pertinent family history Allergies No Known Drug Allergies Recorded By: Adela Amaya; 08/15/2019 10:32:17 AM Current Meds Lisinopril TABS; Therapy: (Recorded:15Aug2019) to Recorded Dispense: 0 Days ; #: Sufficient; Refill: 0; NICOLE = N; Record; Last Updated By: Adela Amaya; 08/15/2019 10:32:17 AM Vitals Vital Signs Recorded: 15Aug2019 10:31AM Height5 ft 11 in [place]251 lb BMI Gketdgexcv95.17 BSA Calculated2.3 Physical Exam GENERAL: Alert and oriented to person, place, and time. No acute distress and breathing comfortably; pleasant and cooperative with the examination. HEENT: Head is normocephalic and atraumatic. NECK: Supple, no visible swelling. CARDIOVASCULAR: No palpable tachycardia. LUNGS: No audible wheezing or labored breathing. ABDOMEN: Nondistended. EXTREMITIES: Evaluation of bilateral upper extremities finds the patient to have a palpable radial artery at the wrist with brisk capillary refill to all digits. The patient has intact sensorium to axillary, radial, median and ulnar nerves. There are no open wounds. There are no signs of infection. There is no evidence of lymphedema or lymphatic streaking. The patient has supple compartments of the bilateral arms, forearms and hands. Negative Tinel's over the fleshy mass noted to the left palm. The mass is approximately 2.5 to 3 cm in the transverse dimension. The borders are somewhat nondescript to palpation, however. It is nontender to palpation and has a negative Tinel's. Evaluation of the right upper extremity finds the patient to have a palpable radial artery at the wrist with brisk capillary refill to all digits. The patient has intact sensorium to axillary, radial, median and ulnar nerves. There are no open wounds. There are no signs of infection. There is no evidence of lymphedema or lymphatic streaking. The patient has supple compartments of the right arm, forearm and hand. The patient shows evidence for focal tenderness over a palpable pea-sized mass radial to midline to the index at the leading edge of the A1 jennie. Results/Data Xray Hand Min 3 [id number] 09:07AMStevenson Art [Aug 15, 2019 9:04AM Stevenson Art] Reason: Unspecified for Xray Hand Min 3 View [Aug 15, 2019 9:04AM Stevenson Art] Reason: Unspecified for Xray Hand Min 3 View Test NameResultFlagReference Xray Hand Min 3 View(Report) Interpreted by: STEVENSON ART 08/15/19 18:23 Patient Name: CHIP HURTADO STUDY: HAND MIN 3 VIEWS; Right; 08/15/2019 9:07 am INDICATION: pain. ACCESSION NUMBER(S): [id number] ORDERING CLINICIAN: STEVENSON ART FINDINGS: Three views of the right hand show no acute fracture or dislocation. Electronically signed by: STEVENSON ART 08/15/19 18:23 Xray Hand Min 3 [id number] 09:07AMStevenson Art Test NameResultFlagReference Xray Hand Min 3 View(Report) Interpreted by: STEVENSON ART 08/15/19 18:23 Patient Name: CHIP HURTADO STUDY: HAND MIN 3 VIEWS; Left; 08/15/2019 9:07 am INDICATION: pain. ACCESSION NUMBER(S): [id number] ORDERING CLINICIAN: STEVENSON ART FINDINGS: Three views of the left hand show no acute fracture or dislocation. Electronically signed by: STEVENSON ART 08/15/19 18:23 Radiology: Three views of the right hand were taken in the office today. No acute fracture or dislocation. Radiology: Three views of the left hand were taken in the office today. No acute fracture or dislocation. Diagnoses/Problems Hand pain (729.5) (M79.643) Mass of left hand (782.2) (R22.32) 1. 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 2. Left palmar mass of unclear origin. Orders Hand pain Xray Hand Min 3 View; Status:Resulted - Requires Verification,Retrospective Authorization; Done: 15Aug2019 09:07AM Performed:ELSHEF; Due:[id number];Ordered; For:Hand pain; Ordered By:Stevenson Art; Reason: Unspecified for Xray Hand Min 3 View Reason: Unspecified for Xray Hand Min 3 View Laterality : Right Radiologist to Determine Optimal Study : Y What are the patient's signs and symptoms? : pain Xray Hand Min 3 View; Status:Resulted - Requires Verification,Retrospective Authorization; Done: 15Aug2019 09:07AM Performed:ELSHEF; Due:[id number];Ordered; For:Hand pain; Ordered By:Stevenson Art; Laterality : Left Radiologist to Determine Optimal Study : Y What are the patient's signs and symptoms? : pain Mass of left hand MRI Hand w/wo Contrast; Status:Hold For - Scheduling,Retrospective Authorization; Requested for:15Aug2019; Perform:[facility]; Order Comments:MRI LEFT PALMAR MASSMSK READREQUEST DR. PINEDA; Due:25Aug2019; Last Updated By:Dixie Palacio; 08/15/2019 9:50:52 AM;Ordered; For:Mass of left hand; Ordered By:Stevenson Art; Laterality : Left Radiologist to Determine Optimal Study : Y What are the patient's signs and symptoms? : pain Health Management Treatment options were discussed. Recommendations were made for MRI with and without contrast to the left hand to further evaluate this mass. He elects for simple observation of the presumed right index finger flexor retinacular sheath cyst. I will see him back as soon as the MRI is completed to discuss findings and talk about where we go from there. Signatures Electronically signed by : Darlyn Resendiz, ; Aug 16 2019 2:55PM EST (Clerical And Administrative Workers/Recorder ) Electronically signed by : Stevenson Art DO; Aug 19 2019 7:44AM EST Normal [facility] HAND MIN 3 VIEWSon 0 HAND MIN 3 VIEWS Patient Name: CHPI HURTADO STUDY: HAND MIN 3 VIEWS; Right; 08/15/2019 9:07 am INDICATION: pain. ACCESSION NUMBER(S): [id number] ORDERING CLINICIAN: STEVENSON ART FINDINGS: Three views of the right hand show no acute fracture or dislocation. Electronically signed by: STEVENSON ART DO Normal [facility] HAND MIN 3 VIEWS Patient Name: CHIP HURTADO STUDY: HAND MIN 3 VIEWS; Left; 08/15/2019 9:07 am INDICATION: pain. ACCESSION NUMBER(S): [id number] ORDERING CLINICIAN: STEVENSON ART FINDINGS: Three views of the left hand show no acute fracture or dislocation. Electronically signed by: STEVENSON ART DO Normal [facility] Encounters Encounter Date Encounter Type Care Provider Facility Start: 11-10-2021 End: 11-10-[address] JS TAY Facility: Start: 04-17-2021 End: 04-22-2021 Evaluation and management of inpatient DR JS TAY Facility:[facility] Start: 04-15-2021 End: 04-15-2021 ambulatory JS TAY Facility:[facility] Start: 10-04-2019 End: 10-04-2019 Patient encounter procedure STEVENSON ART [facility] Procedures Date Procedure Procedure Detail Performing Clinician Start: 10-04-2019 Level iv surg pathol ogy gross&microscopic exam STEVENSON ART Start: 10-04-2019 DISCHARGE PATIENT STEVENSON ART Start: 10-04-2019 Level iv surg pathol ogy gross&microscopic exam STEVENSON ART Payers Date Payer Category Payer Unknown [id number] 1980 Unknown [id number] 1980 Unknown [id number] [id number] [id number] 1980 Unknown [id number] [id number] [id number] 1961 Unknown [id number] Summary Purpose Family History No Family History Records FoundNo Family History Records FoundNo Family History Records FoundNo Family History Records FoundNo Family History Records FoundNo Family History Records Found Advance Directives No Advanced Directives Records FoundNo Advanced Directives Records FoundNo Advanced Directives Records FoundNo Advanced Directives Records FoundNo Advanced Directives Records FoundNo Advanced Directives Records Found Procedure Findings Note Post Operative Note: Post-Pr ocedure Diagnosis: Right index finger trigger digit with associated palmar mass at level of A1 jennie Procedure: 1. 2. 3. 4. 5. Surgeon: Stevenson Art DO Resident/Fellow/Other Senior Electronics Technician: GINGER Peterson Estimated Blood Loss (mL): Less than 10 cc Specimen: no Findings: Right index finger trigger digit with associated palmar mass at level of A1 jennie Operative Report Dictated: Dictation: not applicable - note contains Operative Report Operative Report: Preoperative diagnosis: Right index finger trigger finger. Right palmar mass. Postoperative diagnosis: Same Procedure planned: Right index finger trigger finger releasewith excision right palmar mass. Procedure performed: Right index finger trigger finger releasewith excision of subfascial palmar mass measuring 13 mm in diameter Surgeon: Stevenson Art D.O. Asst.: GINGER Muñiz The physician facilities maintenance assistant was present to the entire case. Given the nature of the disease process and the procedure to be performe (more content not included)... Additional Source Comments (unrecognized sect ion and content) No Status Records FoundNo Status Records FoundNo Status Records FoundNo Status Records FoundNo Status Records FoundNo Status Records Found INFORMATION SOURCE (unrecogn ized section and content) DATE CREATED AUTHOR 09/26/2019 [employer] DATE CREATED AUTHOR AUTHOR'S ORGANIZ ATION 10/13/2019 [facility] DATE CREATED AUTHOR AUTHOR'S ORGANIZ ATION 10/14/2019 [facility] DATE CREATED AUTHOR AUTHOR'S ORGANIZ ATION 12/20/2019 [facility] DATE CREATED AUTHOR AUTHOR'S ORGANIZ ATION 05/23/2020 [facility] DATE CREATED AUTHOR AUTHOR'S ORGANIZ ATION 11/13/2021 [facility] FOR RECORDS PERTAINING TO PATIENTS WHO ARE OR HAVE BEEN ENROLLED IN A CHEMICAL DEPENDENCY/SUBSTANCEABUSE PROGRAM, SOME INFORMATION MAY BE OMITTED. This clinical summary was aggregated from multiple sources. Caution should be exercised in using it in the provision of clinical care. This summary normalizes information from multiple sources, and as a consequence, information in this document may materially change the coding, format and clinical context of patient data. In addition, data may be omitted in some cases. CLINICAL DECISIONS SHOULD BE BASED ON THE PRIMARY CLINICAL RECORDS. [employer] provides no warranty or guarantee of the accuracy or completeness of information in this document.
--- NOTE | 2024-07-10 10:51 | XR_ITS ---
The [address] [address] Patient Name: GALINDO HURTADO MRN: [id number] date: 1980 Sex: M Assigned Patient Location: ER Current Patient Location: ER Accession/Order Number: [id number] Exam Date: 07/10/2024 11:00 Report Date: 07/10/2024 12:24 At the request of: CHUY LEONARD Procedure: XR knee RT 3V EXAM: XR knee RT 3V HISTORY: fall COMPARISON: Right knee series dated 04/08/2024. TECHNIQUE: AP, oblique and lateral views of the right knee performed. FINDINGS: The bony alignment is anatomic. There is no fracture. The joint spaces are normal. There is no joint effusion at the knee or soft tissue abnormality. XR/XR knee RT 3V IMPRESSION: Unremarkable right knee series. Electronically authenticated by: ANIVAL REY Date: 07/10/2024 12:24
[2024-07-10] MEDS: NAPROXEN 250 MG TABLET 500 MG PO (11:14)
[2024-07-10 12:28] VITALS: BP 135/93; PULSE 117; O2SAT 98
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
== END 2024-07-10 13:05 | disposition home or self-care (01) ==
PROVIDERS: Emergency Provider Emergency Medicine; PCP Family Medicine
DX: S80.01XA Contusion of right knee, initial encounter (principal); S83.92XA Sprain of unspecified site of left knee, initial encounter; W18.39XA Other fall on same level, initial encounter
CPT/HCPCS: 73562; 99284

== ENCOUNTER 2025-01-10 07:09 | Outpatient (OUT) | payer OTHER, SELFPAY ==
--- OUTSIDE RECORDS SUMMARY | 2024-08-04 10:13 | XMS_ITS ---
Author Organization The [facility] in [place] Address [address] [place] [address] Care Team Providers Care Sr Vice President Name Role Phone Felton Aguilera Primary Care Provider REASON FOR VISIT BP Check Medications Medication SIG (Take, Route, Frequency, Duration) Notes Start Date End Date Status amLODIPine Besylate 5 MG 1 tablet Orally Once a day for 30 days 07/20/2024 Active Encounters Encounter Location Date Provider Diagnosis [facility] [address] [place] [place] [address] 08/04/2024 Felton Aguilera Plan Of Treatment Medication Medication Name Sig Start Date Stop Date Notes amLODIPine Besylate 5 MG 1 tablet Orally Once a day for 30 days 07/20/2024 Progress Notes * Chip SADLER LDOB: [birth year] (44 yo M)Acc No.[id number]:08/04/2024 Patient: Ari LILYAneudyChip :1980 A ge:44 Y S ex:Male Address:[address] [place] [address] * Refills Refill amLODIPine Besylate Tablet, 5 MG, Orally, 30, 1 tablet, Once a day, 30 days, Refills=11 * true * Date: Generated for Printi ng/Faxing/eTransmitting on: 0 01/10/2025 07:12 AM EDT
--- OUTSIDE RECORDS SUMMARY | 2024-08-04 10:15 | XMS_ITS ---
Author Organization The [facility] in [place] Address [address] [place] [address] Care Team Providers Care Equity Trader Name Role Phone Felton Aguilera Primary Care Provider REASON FOR VISIT bp check Vital Signs Height 72 in 08/04/2024 Blood pressure systolic 110 mm Hg 08/05/19 25 Blood pressure diastolic 88 mm Hg 025 Encounters Encounter Location Date Provider Diagnosis [facility] [address] [facility] [place] [address] 08/04/2024 Felton Aguilera Hypertension I10 Assessments Encounter Date Diagnosis (ICD Code) Assessment Notes Treatment Notes Treatment Clinical Notes Section Notes 08/04/2024 Hypertension (ICD-10 - I10) Plan Of Treatment No Information Progress Notes * Chip SADLER LDOB: [birth year] (44 yo M)Acc No.[id number]:08/04/2024 BP Check Patient: Chip ALLRED Provider: Eloise Aguilera ([facility])MD :1980 A ge:44 Y S ex:Male Date:08/04/2024 Address:[address] [id number] Check In:02:06 PM ESTCheck O ut:02:24 PM EST Subjective: * Chief Complaints: * 1 . Bp check. * Active Problem List J01.90 Acute sinusitis Modified On:05/27/2023/U Status:confirmed Z00.00 Well adult Modified On:05/27/2023U Status:confirmed I10 Hypertension Modified On:12/13/2023U Status:confirmed E78.5 Hyperlipidemia Modified On:12/13/2023U Status:confirmed S83.90XA Knee sprain Modified On:04/12/2024/U Status:confirmed * Medical History: Objective: * Vitals: H t: 72 in, BP:110/88mm Hg, Ht-cm: 182.88 cm. Assessment: * Assessment: 1. H ypertension - I10 (Primary) Plan: * Treatment: * * Sign off status: Completed Visit Status: Kyler GURROLA (Check Out) true * Provider: Eloise Aguilera ([facility])MD Date: 0 08/04/2024 Generated for Joseph de anda/Makayla/Aidaitting on: 0 01/10/2025 07:11 AM EDT
--- OUTSIDE RECORDS SUMMARY | 2024-12-26 04:15 | XMS_ITS ---
Author Organization [facility] in [place] Address [address] [place] [address] Care Team Providers Care Technician Terminal And Repeater Name Role Phone Felton Aguilera Primary Care Provider Allergies No Known Allergies REASON FOR VISIT Episode of vision changes, Pain in left testicle (tingling) and pain on lower left side of back, Urine Stream not as strong Medications Medication SIG (Take, Route, Frequency, Duration) Notes Start Date End Date Status Aspirin 81 81 MG 1 tablet Orally Once a day for 30 day(s) 12/26/2024 Active amLODIPine Besylate 5 MG 1 tablet Orally Once a day for 30 days 07/20/2024 Active Metoprolol Tartrate 50 MG TAKE 1 TABLET BY MOUTH TWICE A DAY WITH FOOD Orally Twice a day for 30 days Active Lisinopril 40 MG TAKE 1 TABLET BY JAJA TH EVERY DAY Orally Once a day for 30 days Active Ciprofloxacin HCl 500 MG 1 tablet Orally every 12 hrs for 10 days 12/26/2024 Active Social History Tobacco Use: Social History Observation Description Date Details (start date - stop date) Never Smoker NA - NA Tobacco Use/Smoking Question Answer Notes Patient is a nonsmoker AUDIT-C (Standard) Question Answer Notes Did you have a drink containing alcohol in the p ast year? No Points 0 Interpretation Negative Problems Problem Type SNOMED Code ICD Code Onset Dates Problem Status W/U Status Risk Notes Problem Benign prostatic hyperplasia (066604840) BPH (benign prostatic hyperplasia) (N40.0) Active confirmed Problem TIA (transient ischemic attack) (G45.9) Active confirmed Vital Signs Weight 250 lbs 12/26/2024 Height 72 in 12/26/2024 Blood pressure systolic 118 mm Hg 12/27/19 25 Blood pressure diastolic 82 mm Hg 025 BMI 33.9 kg/m2 12/26/2024 Procedures Procedure Date Ordered Date Performed Result Body Sit e CARDIO Echocardiogram 12/26/2024 N/A VASC US CAROTID ARTERY DUPLEX BILATERAL 12/26/2024 N/A Encounters Encounter Location Date Provider Diagnosis [facility] [address] [place] [address] 12/26/2024 Felton Aguilera TIA (transient ische gillian attack) G45.9 ; BPH (benign prostatic hyperplasia) N40.0 and Epididymitis N45.1 Assessments Encounter Date Diagnosis (ICD Code) Assessment Notes Treatment Notes Treatment Clinical Notes Section Notes 12/26/2024 TIA (transient ischemic attack) (ICD-10 - G45.9) 12/26/2024 BPH (benign prostatic hyperplasia) (ICD-10 - N40.0) 12/26/2024 Epididymitis (ICD-10 - N45.1) Plan Of Treatment Medication Medication Name Sig Start Date Stop Date Notes Aspirin 81 81 MG 1 tablet Orally Once a day for 30 day(s) 12/26/2024 Ciprofloxacin HCl 500 MG 1 tablet Orally every 12 hrs for 10 days 12/26/2024 Pending Test Test Name Order Date CARDIO Echocardiogram 12/26/2024 MRI BRAIN WO CON 12/26/2024 VASC US CAROTID ARTERY DUPLEX BILATERAL 12/26/2024 Progress Notes * Chip SADLER LDOB: [birth year] (44 yo M)Acc No.[id number]:12/26/2024 Progress Note Patient: Chip ALLRED Provider: Eloise Aguilera ([facility])MD :1980 A ge:44 Y S ex:Male Date:12/26/2024 Address:[address], [id number] Check In:08:02 AM ESTCheck O ut:08:40 AM EST Subjective: * Chief Complaints: * E pisode of vision changesPain in left testicle (tingling) and pain on lower left side of backUrine Stream not as strong * HPI: G eneral: Seemes like loss periopheral vision - lasted less thatn an hour - not since some tingling in legs - no weakness - some nausea most of afternoon - + FH strokes 3 weeks ago. * ROS: E ENT: hearing changes d enies. v isual changes d enies.?non-healing mouth sores d enies. s wollen glands or neck lumps d enies. h oarseness d enies. s ore throat d enies. d ifficulty swallowing d enies. n ose bleeds d enies. n law congestion d enies. e ar ache d enies. e ar discharge?denies. r inging in ears d enies. l ight sensitivity d enies. e ye pain d enies. b lurring d enies. e ye irritation d enies. d ouble vision d enies.?vision loss d enies. G eneral/Constitutional: Sweats: D enies. F atigue d enies. S leep problems d enies. A norexia d enies. M alaise d enies. W eight loss d enies.?Fatigue or Weakness d enies. F ever or Chills d enies. C ardiovascular: Shortness of Breath w/lying flat d enies. L ightheadedness/dizziness d enies. C hest tightness/ heavy pressure d enies. S welling of legs, ankles, or feet d enies. W aking up with shortness of breath d enies. C hest pain denies. P alpitations d enies. W eight gain d enies. R espiratory: Chronic or frequent cough d enies. C oughing up blood?denies. D ifficulty breathing d enies. P roductive cough d enies. S noring?denies. S hortness of breath that awakens from sleep (PND) d enies. C hest pain d enies. S putum production d enies. W heezing d enies. M usculoskeletal: Joint pain d enies. J oint Fluid d enies. B ack pain d enies. K nee pain d enies. N felix pain d enies. J oint Stiffness d enies. M uscle cramps d enies. W eakness of muscles d enies. A rthritis d enies. M uscle aches d enies. P ain in shoulder(s) d enies. S wollen joints d enies. * Active Problem List J01.90 Acute sinusitis Modified On:05/27/2023U Status:confirmed Z00.00 Well adult Modified On:05/27/2023U Status:confirmed I10 Hypertension Modified On:12/13/2023U Status:confirmed E78.5 Hyperlipidemia Modified On:12/13/2023U Status:confirmed S83.90XA Knee sprain Modified On:04/12/2024 Status:confirmed G45.9 TIA (transient ische gillian attack) Modified On:12/26/2024U Status:confirmed N40.0 BPH (benign prostati c hyperplasia) Modified On:12/26/2024U Status:confirmed * Medical History: * Surgical History: c olonoscopy 2008 * Hospitalization/Major Diagno stic Procedure: s inus tachycrdia 03/2021 * Family History: F ather: alive, diagnosed with Unspecified heart disease, Unspecified essential hypertension.?Mother: alive, diagnosed with Unspecified heart disease, Unspecified polyarthropathy or polyarthritis, pelvic region and thigh. S on(s): alive. 1 son(s) - healthy. . * Social History: T obacco Use: T obacco Use/Smoking P atient is a n onsmoker D rug/Alcohol: A MARICRUZ-C (Standard) D id you have a drink containing alcohol in the past year? N o P oints 0 I nterpretation N egative * Medications: T akingamLODIPine Besylate 5 MG Tablet 1 tablet Orally Once a day Lisinopril 40 MG Tablet TAKE 1 TABLET BY MOUTH EVERY DAY Orally Once a day Metoprolol Tartrate 50 MG Tablet TAKE 1 TABLET BY MOUTH TWICE A DAY WITH FOOD Orally Twice a day Taking amLODIPine Besylate 5 MG Tablet 1 tablet Orally Once a day Taking Lisinopril 40 MG Tablet TAKE 1 TABLET BY MOUTH EVERY DAY Orally Once a day Taking Metoprolol Tartrate 50 MG Tablet TAKE 1 TABLET BY MOUTH TWICE A DAY WITH FOOD Orally Twice a day DiscontinuedDiclofenac Sodium 75 MG Tablet Delayed Release 1 tablet as needed Orally Twice a day Medication List reviewed and reconciled with the patientDiscontinued Diclofenac Sodium 75 MG Tablet Delayed Release 1 tablet as needed Orally Twice a day Medication List reviewed and reconciled with the patient * Allergies: N .K.D.A.no[Allergies Verified] Objective: * Vitals: W t:250lbs, Ht: 72 in, BP:118/82mm Hg, BMI:33.9Index, Ht-cm: 182.88 cm, Wt-k.4 kg. * Examination: P hysical Exam: GENERAL: w ell developed, well nourished, in no acute distress. HEAD: n ormocephalic/atraumatic. EYES: p upils equal, round and reactive to light, conjunctivae and sclerae normal. EARS: n o deformity or lesion of external ear, canals and TM appear normal bilaterally, TM's intact, not inflamed with normal light reflex, hearing grossly normal to conversational speech. NOSE: n o deformity, discharge, inflammation, or lesions.? MOUTH: m ucous membranes moist, normal oropharynx and posterior pharynx without lesions or exudates, tongue normal, dentition normal. NECK: n felix supple, no masses or palpable cervical nodes, trachea midline, thyroid without nodules, masses, tenderness, or enlargement. CHEST: n o chest wall deformity, no chest wall tenderness.? LUNGS: n ormal respiratory effort and clear to auscultation, no wheezes, rales, or rhonchi, good air exchange. CARDIO: r egular rate and rhythm, normal S1 and S2, nor murmur, rub, or gallop. PULSES: n ormal capillary refill. ABDOMEN: s oft, non-distended, non-tender, no masses. MUSCULOSKELETAL: n o deformity or scoliosis noted, normal range of motion, joints normal, no erythema, edema, effusion, or ecchymosis. EXTREMITY: n o clubbing, cyanosis, edema, or deformity with normal ROM in both upper and lower bilateral extremities. NEUROLOGIC: g rossly normal. SKIN: n o rashes, ulcerations, or suspicious lesions. LYMPH NODES: n o cervical adenopathy, nodes normal. MENTAL STATUS: a lert and oriented x3, normal mood and affect. Assessment: * Assessment: 1. T IA (transient ischemic attack) - G45.9 (Primary) 2 . B PH (benign prostatic hyperplasia) - N40.0 3 . E pididymitis - N45.1 Plan: * Treatment: 2. E pididymitis Start Ciprofloxacin HCl Tablet, 500 MG, 1 tablet, Orally, every 12 hrs, 10 days, 20 Tablet; S tart Aspirin 81 Tablet Chewable, 81 MG, 1 tablet, Orally, Once a day, 30 day(s), 30. * Procedure Codes: * Preventive Medicine: Screenings/Counseling: B DC ACTION PLAN Above Normal BMI Follow-up D ietary management education, guidance, and counseling * * Sign off status: Completed Visit Status: C HK (Check Out) true * Provider: Eloise Aguilera ([facility])MD Date: 12/26/2024 Generated for Printi ng/Faxing/eTransmitting on: 0 01/10/2025 07:12 AM EDT History and Physical Notes * HPI (History of Present Illness) Category Sub-Category Detail Notes Category Not es General Seemes like loss periopheral vision - lasted less thatn an hour - not since some tingling in legs - no weakness - some nausea most of afternoon - + FH strokes 3 weeks ago Examination Category Sub-Category Detail Notes Category Not es Physical Exam GENERAL: well developed, well nourished, in no acute distress HEAD: normocephalic/atraum atic EYES: pupils equal, round and reactive to light, conjunctivae and sclerae normal EARS: no deformity or lesi on of external ear, canals and TM appear normal bilaterally, TM's intact, not inflamed with normal light reflex, hearing grossly normal to conversational speech NOSE: no deformity, discha rge, inflammation, or lesions MOUTH: mucous membranes percy st, normal oropharynx and posterior pharynx without lesions or exudates, tongue normal, dentition normal NECK: neck supple, no mass es or palpable cervical nodes, trachea midline, thyroid without nodules, masses, tenderness, or enlargement CHEST: no chest wall deform ity, no chest wall tenderness LUNGS: normal respiratory e ffort and clear to auscultation, no wheezes, rales, or rhonchi, good air exchange CARDIO: regular rate and rhy thm, normal S1 and S2, nor murmur, rub, or gallop PULSES: normal capillary ref ill ABDOMEN: soft, non-distended, non-tender, no masses RECTAL: MUSCULOSKELETAL: no deformity or scol iosis noted, normal range of motion, joints normal, no erythema, edema, effusion, or ecchymosis EXTREMITY: no clubbing, cyanosi s, edema, or deformity with normal ROM in both upper and lower bilateral extremities NEUROLOGIC: grossly normal SKIN: no rashes, ulceratio ns, or suspicious lesions LYMPH NODES: no cervical adenopat hy, nodes normal MENTAL STATUS: alert and oriented x 3, normal mood and affect
--- OUTSIDE RECORDS SUMMARY | 2025-01-10 07:12 | XMS_ITS | Patient Health Record ---
Author Organization [facility] in [place] Address [address] [place] [address] Care Team Providers Care Professor Of Apologetics Name Role Phone Felton Aguilera Primary Care Provider [phone] Allergies No Known Allergies Results Component Value Reference Range Notes XR KNEE RT 3V Reviewed date:07/10/2024 07:16:20 PM Interpretation: Performing Lab: Notes/Report: Source Facility: [place] [id number] XRay Report Signed Patient: CHIP SADLER MR#: [id number] : 1980 Acct:[id number] Age/Sex: 44 / M ADM Date: 07/10/24 Loc: ER Attending Dr: Ordering Physician: Aislinn Leonard Date of Service: 07/10/24 Procedure(s): XR knee RT 3V Accession Number(s): [id number] cc: Sherman Aguilera M.D.; Aislinn Leonard [address] [address] Patient Name: CHIP SADLER MRN: [id number] date: 1980 Sex: M Assigned Patient Location: ER Current Patient Location: ER Accession/Order Number: [id number] Exam Date: 07/10/2024 11:00 Report Date: 07/10/2024 12:24 At the request of: AISLINN LEONARD Procedure: XR knee RT 3V EXAM: XR knee RT 3V HISTORY: fall COMPARISON: Right knee series dated 04/08/2024. TECHNIQUE: AP, oblique and lateral views of the right knee performed. FINDINGS: The bony alignment is anatomic. There is no fracture. The joint spaces are normal. There is no joint effusion at the knee or soft tissue abnormality. XR/XR knee RT 3V IMPRESSION: Unremarkable right knee series. Electronically authenticated by: ANIVAL REY Date: 07/10/2024 12:24 Dictated By: Anival Rey M.D. Signed By: 07/10/24 1226 DD/ 1224 TD/TT: Forklift Technician: [place] [address] XRay Report Signed Patient: JERMAN SADLER MR#: [id number] : 1980 Acct:[id number] Age/Sex: 44 / M ADM Date: 07/10/24 Loc: ER Attending Dr: Ordering Physician: Aislinn Leonard Date of Service: 07/10/24 Procedure(s): XR knee RT 3V Accession Number(s): [id number] cc: Sherman Aguilera M.D. ; Aislinn Leonard [place] [id number] Patient Name: CHIP SADLER MRN: [id number] date: 1980 Sex: M Assigned Patient Location: ER Current Patient Location: ER Accession/Order Numb er: [id number] Exam Date: 07/10/2024 11:00 Report Date: 07/10/2024 12:24 At the request of: AISLINN LEONARD Procedure: XR knee RT 3V EXAM: XR knee RT 3V HISTORY: fall COMPARISON: Right kn ee series dated 04/08/2024. TECHNIQUE: AP, obliq ue and lateral views of the right knee performed. FINDINGS: The bony alignment i s anatomic. There is no fracture. The joint spaces are normal. There is no joint effusion at the knee or soft tissue abnormality. X R/XR knee RT 3V IMPRESSION: Unremarkable right knee series. Electronically authe nticated by: ANIVAL REY Date: 07/10/2024 12:24 Dictated By: Anival Rey M.D. Signed By: 07/10/241225 DD/ 23 TD/TT: Forklift Technician: XR KNEE RT 3V Reviewed date:04/09/2024 05:35:04 PM Interpretation: Performing Lab: Notes/Report: Source Facility: [place] [address] [place] [address] XRay Report Signed Patient: CHIP SADLER MR#: [id number] : 1980 Acct:[id number] Age/Sex: 44 / M ADM Date: 04/08/24 Loc: ER Attending Dr: Ordering Physician: Lena Fung Date of Service: 04/08/24 Procedure(s): XR knee RT 3V Accession Number(s): [id number] cc: Sherman Aguilera M.D.; Lena Fung [place] [address] Patient Name: CHIP SADLER MRN: [id number] date: 1980 Sex: M Assigned Patient Location: ER Current Patient Location: Accession/Order Number: [id number] Exam Date: 04/08/2024 16:10 Report Date: 04/08/2024 16:54 At the request of: LENA FUNG Procedure: XR knee RT 3V EXAM: XR knee RT 3V HISTORY: fall COMPARISON: None. TECHNIQUE: 3 views of the right knee. FINDINGS: No acute fracture or dislocation. No significant knee joint effusion. No radiodense foreign body, or appreciable soft tissue gas. XR/XR knee RT 3V IMPRESSION: No acute osseous abnormality. Electronically authenticated by: REMY LIZ Date: 04/08/2024 16:54 Dictated By: Remy Liz M.D. Signed By: 04/08/241656 DD/ 53 TD/TT: Forklift Technician: [place] [address] XRay Report Signed Patient: JERMAN SADLER MR#: [id number] : 1980 Acct:[id number] Age/Sex: 44 / M ADM Date: 04/08/24 Loc: ER Attending Dr: Ordering Physician: Lena Fung Date of Service: 04/08/24 Procedure(s): XR knee RT 3V Accession Number(s): [id number] cc: Sherman Aguilera M.D. ; Lena Fung [place] [id number] Patient Name: CHIP SADLER MRN: [id number] date: 1980 Sex: M Assigned Patient Location: ER Current Patient Location: Accession/Order Numb er: [id number] Exam Date: 16:10 Report Date: 04/08/2024 16:54 At the request of: LENA FUNG Procedure: XR knee RT 3V EXAM: XR knee RT 3V HISTORY: fall COMPARISON: None. TECHNIQUE: 3 views o f the right knee. FINDINGS: No acute f racture or dislocation. No significant knee joint effusion. No radiodense foreig n body, or appreciable soft tissue gas. X R/XR knee RT 3V IMPRESSION: No acute osseous abnormality. Electronically authe nticated by: REMY LIZ Date: 04/08/2024 16:54 Dictated By: Remy Liz M.D. Signed By: 04/08/241656 DD/ 53 TD/TT: Forklift Technician: Reason For Referral No Information Medications Medication SIG (Take, Route, Frequency, Duration) [...] Question Answer Notes Patient is a nonsmoker Alcohol Screen (Audit-C) Question Answer Notes Did you have a drink containing alcohol in the p ast year? No Points 0 Interpretation Negative AUDIT-C (Standard) Question Answer Notes Did you have a drink containing alcohol in the p ast year? No Points 0 Interpretation Negative Problems Problem Type SNOMED Code ICD Code Onset Dates Problem Status W/U Status Risk Notes Problem Hyperlipidemia (53748262) Hyperlipidemia (E78.5) Active confirmed Problem Hypertension (66538550) Hypertension (I10) Active confirmed Problem Transient ischemic attack (887401052) TIA (transient ischemic attack) (G45.9) Active confirmed Problem Benign prostatic hyperplasia (376019649) BPH (benign prostatic hyperplasia) (N40.0) Active confirmed Problem Acute sinusitis (14915789) Acute sinusitis (J01.90) Active confirmed Problem Well adult (958062275) Well adult (Z00.00) Active confirmed Problem Knee sprain (96143085) Knee sprain (S83.90XA) Active confirmed Vital Signs Blood pressure diastolic 82 mm Hg 12/26/2024 Height 72 in 12/26/2024 Blood pressure systolic 118 mm Hg 12/26/2024 Weight 250 lbs 12/26/2024 BMI 33.9 kg/m2 12/26/2024 Procedures Procedure Date Ordered Date Performed Result Body Sit e CARDIO Echocardiogram 12/26/2024 N/A VASC US CAROTID ARTERY DUPLEX BILATERAL 12/26/2024 N/A Encounters Encounter Location Date Provider Diagnosis [facility] [address] [place] [address] 06/23/2024 Felton Aguilera [facility] [address] [place] [address] 07/20/2024 Felton Aguilera Well adult Z00.00 [facility] [address] [place] [address] 07/27/2024 Felton Aguilera [facility] [address] [place] [address] 08/04/2024 Felton Aguilera [facility] [address] [place] [address] 12/26/2024 Felton Hoy TIA (transient ische gillian attack) G45.9 ; BPH (benign prostatic hyperplasia) N40.0 and Epididymitis N45.1 [facility] [address] [place] [address] 07/20/2024 Felton Hoy Hypertension I10 [facility] [address] [place] [address] 07/27/2024 Felton Hoy Hypertension I10 [facility] [address] [place] [address] 08/04/2024 Felton Hoy Hypertension I10 [facility] [address] [place] [address] 04/12/2024 Felton Hoy Knee sprain S83.90XA [place] [address] [place] [address] 04/21/2024 Felton Hoy Knee sprain S83.90XA [place] [address] [place] [address] 07/12/2024 Felton Hoy Well adult Z00.00 Assessments Encounter Date Diagnosis (ICD Code) Assessment Notes Treatment Notes Treatment Clinical Notes Section Notes 04/12/2024 Knee sprain (ICD-10 - S83.90XA) 04/21/2024 Knee sprain (ICD-10 - S83.90XA) 07/12/2024 Well adult (ICD-10 - Z00.00) 07/20/2024 Hypertension (ICD-10 - I10) 07/27/2024 Hypertension (ICD-10 - I10) 08/04/2024 Hypertension (ICD-10 - I10) 12/26/2024 TIA (transient ischemic attack) (ICD-10 - G45.9) 12/26/2024 BPH (benign prostatic hyperplasia) (ICD-10 - N40.0) 07/20/2024 Well adult (ICD-10 - Z00.00) 12/26/2024 Epididymitis (ICD-10 - N45.1) Plan Of Treatment Pending Test Test Name Order Date CMP (COMPLETE METABOLIC PANEL) HEMOGLOBIN A1C (GLYCO) 05/27/2023 LIPID PANEL (CHOL/TRIG/HDL/LDL) 05/27/20 23 CBC WITH DIFF 05/27/2023 PSA, PROSTATE-SPECIFIC ANTIGEN 3 CARDIO Echocardiogram 12/26/2024 COMPREHENSIVE METABOLIC PROFILE WITH GFR 12/13/2023 OCCULT BLOOD, FECAL, IMMUNOASSAY 024 CBC W/AUTO DIFF 12/13/2023 STOOL OCCULT BLOOD 05/27/2023 MRI BRAIN WO CON 12/26/2024 THYROID PANEL (T4/TSH/FREE T3) 4 PSA, SCREENING 12/13/2023 Lipid Panel 12/13/2023 VASC US CAROTID ARTERY DUPLEX BILATERAL 12/26/2024 Insurance Providers Payer Name Payer Address Payer Phone Subscriber Number Group Number Insured Name Patient Relationship to Insured Coverage Start Date Coverage End Date MMO [employer] PPO [address] [address] [place] [phone] [id number] Chip Sadler Self - patient is the insured Medical (General) History Medical History History ICD Code Benign essential hypertension I10 Over weight E66.3 Irritable bowel K58.9 Surgical History Surgery Date(Month/Year) colonoscopy 2008 Hospitalization History Reason Date(Month/Year) sinus tachycrdia 03/2021
--- OUTSIDE RECORDS SUMMARY | 2025-01-10 07:12 | XMS_ITS | Clinical Summary ---
Author Organization [facility] Address [address] [place] [address] Phone Care Team Providers Care Bulb Sorter Name Role Phone Sherman Aguilera MD Primary Care Provider [phone] Social History Tobacco Use Types Packs/Day Years Used Date Smoking Tobacco: Never Assessed Sex and Gender Information Value Date Recorded Sex Assigned at Not on file Legal Sex Male 12:41 PM EST Gender Identity Not on file Sexual Orientation Not on file Last Filed Vital Signs Vital Sign Reading Time Taken Comments Blood Pressure 149/90 03/13/2020 7:32 AM EDT Pulse 85 03/13/2020 7:32 AM EDT Temperature 36.9 C (98.4 F) 03/13/2020 7:32 AM EDT Respiratory Rate 18 03/13/2020 7:32 AM EDT Oxygen Saturation - - Inhaled Oxygen Concentration - - Weight 116 kg (255 lb 8.2 oz) 03/13/2020 7:27 AM EDT Height 180.3 cm (5' 10.98 ) 03/13/2020 7:27 AM E DT Body Mass Index 35.65 03/13/2020 7:27 AM EDT Plan of Treatment Not on file Care Teams Bulb Sorter Relationship Specialty Start Date End Date Sherman Aguilera MD [address] [facility] [place], [place] [phone] PCP - General 08/15/19
--- OUTSIDE RECORDS SUMMARY | 2025-01-10 07:12 | XMS_ITS | Encounter Summary ---
Author Organization [facility] Address [address] [place] [address] Phone Care Team Providers Care Slot Machine Department Floorperson Name Role Phone Sherman Aguilera MD Primary Care Provider [phone] Encounter Details Date Type Department Care Team (Late st Contact Info) Description 10/05/2019 Orders Only [facility] [address] [place] [address] Conversion, Onbase Social History Tobacco Use Types Packs/Day Years Used Date Smoking Tobacco: Never Assessed Sex and Gender Information Value Date Recorded Sex Assigned at Not on file Legal Sex Male 12:41 PM EST Gender Identity Not on file Sexual Orientation Not on file documented as of this encounter Plan of Treatment Scheduled Orders Name Type Priority Associated Diagnoses Orde r Schedule OUTSIDE LAB SCAN Lab Ordered: 10/05/2019 documented as of this encounter Visit Diagnoses Not on filedocumented in this encounter Care Teams Slot Machine Department Floorperson Relationship Specialty Start Date End Date Sherman Aguilera MD [address] [place] [address] PCP - General 08/15/19 documented as of this encounter
--- OUTSIDE RECORDS SUMMARY | 2025-01-10 07:12 | XMS_ITS | CCD ---
Author Organization [facility] [employer]ini[employer] Care Team Providers Care Payroll Accounting Manager Name Role Phone STEVENSON ART Admitting Unavailable STEVENSON ART Attending Unavailable STEVENSON ART Referring Unavailable JS AGUILERA Primary Care Unavailable JASVIR, DR WEINSTEIN Primary Care Unavailable JASVIR, DR WEINSTEIN Admitting Unavailable JASVIR, DR WEINSTEIN Attending Unavailable JASVIR, DR WEINSTEIN Consulting Unavailable TONY, DR GAL Lomax Consulting Unavailable HAY, DR STAFFORD Consulting Unavailable ALICE, PIETER SALCEDO Consulting Unavailable KONSTANTIN, CHRISTINE Consulting Unavailable JASVIR, DR WEINSTEIN Admitting Unavailable JASVIR, DR WEINSTEIN Attending Unavailable JASVIR, DR WEINSTEIN Primary Care Unavailable JASVIR, DR WEINSTEIN Consulting Unavailable JASVIR, DR WEINSTEIN Primary Care Unavailable ROSA, DR CHARLES Austin Admitting Unavailabl e ROSA, DR CHARLES Austin Attending Unavailabl e ANDRES, DR ASHELY Magallanes Consulting Unavailable GINGER DALTON Consulting Unavailable Js Aguilera MD Primary Care Provider [phone] [facility] Emanuel OLIVAS Attending Provider Js Aguilera MD Primary Care Provider [phone] [facility] Emanuel OLIVAS Attending Provider Js Aguilera MD Primary Care Provider [phone] [facility] Emanuel OLIVAS Attending Provider López - Emanuel DANIELS Attending Unavailable Lópezs - Emanuel DANIELS Admitting Unavailable Js Aguilera Primary Care Unavailable Kuns Emanuel DANIELS Attending Unavailable [facility] Unavailable Js Aguilera Primary [facility]ending Unavailable Js Aguilera Primary [facility] Unavailable [facility]el[facility] Attending Unavailable Js Aguilera Primary [facility]available Annelise Emanuel DANIELS Attending Unavailable [facility] Admitting Unavailable Js Aguilera Primary Care Unavailable Problems Active Problems Problem Classification Problem [...] [DEPENDENCE ON SUPPLEMENTAL OXYGEN] 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 Comment on above: Result Comment: This test is not yet approved or cleared by the [place] FDA. When there are no FDA-approved or cleared tests available, and other criteria are met, FDA can make tests available under an emergency access mechanism called an Emergency Use Authorization (EUA). The EUA for this test is supported by the Max of Health and Human Service's (HHS's) declaration [...] consistent with SARS-CoV-2. Performed By: #### [facility] #### [facility] [address] [place] [address] Dr. Reba Landis CBC W MANUAL DIFFon 04-22-20 21 ATYPICAL LYMPH # Normal [facility] Comment on above: Performed By: #### H STROPN, CMP #### [facility] [address] [place] [address] Dr. Reba Landis ATYPICAL LYMPH % Normal [facility] Comment on above: Performed By: #### H STROPN, CMP #### [facility] [address] [address] [address] Reba Landis BAND # Normal 0.0-0.3 [facility] Comment on above: Performed By: #### H STROPN, CMP #### [facility] [address] [place] [address] Dr. Reba Landis BAND % Normal 0-5 [facility] Comment on above: Performed By: #### H STROPN, CMP #### [facility] [address] [place] [address] Dr. Reba Landis BASOM # 0.00 103/ul Normal 0.00-0.10 [facility] Comment on above: Performed By: #### H STROPN, CMP #### [facility] [address] [place] [address] Dr. Reba Landis BASOM % 0.0 % Critically low 0.2-2.0 [facility] Comment on above: Performed By: #### H STROPN, CMP #### [facility] [address] [place] [address] Dr. Reba Landis BLAST # Normal [facility] Comment on above: Performed By: #### H STROPN, CMP #### [facility] [address] [place] [address] Dr. Reba Landis BLAST % Normal [facility] Comment on above: Performed By: #### H STROPN, CMP #### [facility] [address] [place] [address] Dr. Reba Landis CORRECTED WBC Normal 4.0-11.0 [facility] Comment on above: Performed By: #### H STROPN, CMP #### [facility] [address] [place] [address] Dr. Reba Landis EOS # 0.00 103/ul Normal 0.00-0.70 [facility] Comment on above: Performed By: #### H STROPN, CMP #### [facility] [address] [address] [address] Reba Landis EOS% 0.0 % Critically low 0.9-7.0 [facility] Comment on above: Performed By: #### H STROPN, CMP #### [facility] [address] [address] [address] Reba Landis HCT 42.4 % Normal 42.0-54.0 [facility] Comment on above: Performed By: #### H STROPN, CMP #### [facility] [address] [address] [address] Reba Landis HGB 14.2 g/dl Normal 14.0-18.0 [facility] Comment on above: Performed By: #### H STROPN, CMP #### [facility] [address] [place] [address] Dr. Reba Landis LYMPHM # 0.41 103/ul Critically low 1.20-3.80 [facility] Comment on above: Performed By: #### H STROPN, CMP #### [facility] [address] [place] [address] Dr. Reba Landis LYMPHM% 3.0 % Critically low 20.5-60.0 [facility] Comment on above: Performed By: #### H STROPN, CMP #### [facility] [address] [place] [address] Dr. Reba Landis MCH 28.9 pg Normal 25.9-34.0 [facility] Comment on above: Performed By: #### H STROPN, CMP #### [facility] [address] [place] [address] Dr. Reba Landis MCHC 33.5 g/dl Normal 29.9-35.[address] [facility] Comment on above: Performed By: #### H STROPN, CMP #### [facility] [address] [place] [address] Dr. Reba Landis MCV 86.4 fL Normal 80.0-94.0 [facility] Comment on above: Performed By: #### H STROPN, CMP #### [facility] [address] [place] [address] Dr. Reba Landis METAMYELOCYTE # Normal [facility] Comment on above: Performed By: #### H STROPN, CMP #### [facility] [address] [place] [address] Dr. Reba Landis METAMYELOCYTE % Normal [facility] Comment on above: Performed By: #### H STROPN, CMP #### [facility] [address] [place] [address] Dr. Reba Landis MONOM# 1.10 103/ul Critically high 0.30-0.80 [facility] Comment on above: Performed By: #### H STROPN, CMP #### [facility] [address] [place] [address] Dr. Reba Landis MONOM% 8.0 % Normal 1.7-12.0 [facility] Comment on above: Performed By: #### H STROPN, CMP #### [facility] [address] [place] [address] Dr. Reba Landis MPV 10.1 fL Normal 9.5-13.5 [facility] Comment on above: Performed By: #### H STROPN, CMP #### [facility] [address] [place] [address] Dr. Reba Landis MYELOCYTE # Normal [facility] Comment on above: Performed By: #### H STROPN, CMP #### [facility] [address] [place] [address] Dr. Reba Landis MYELOCYTE % Normal [facility] Comment on above: Performed By: #### H STROPN, CMP #### [facility] [address] [place] [address] Dr. Reba Landis NRBC Normal [facility] Comment on above: Performed By: #### H STROPN, CMP #### [facility] [address] [place] [address] Dr. Reba Landis PLT 312 103/ul Normal 150-450 [facility] Comment on above: Performed By: #### H STROPN, CMP #### [facility] [address] [place], [place] [address] Dr. Reba Landis RBC 4.91 106/ul Normal 4.70-6.10 [facility] Comment on above: Performed By: #### H STROPN, CMP #### [facility] [id number] Reba Landis RDW 11.9 % Normal 11.0-15.0 [facility] Comment on above: Performed By: #### H STROPN, CMP #### [facility] [address] [address] [address] Reba Landis SEG # 12.19 103/ul Critically high 1.40-6.50 [facility] Comment on above: Performed By: #### H STROPN, CMP #### [facility] [id number] Reba Landis SEG % 89.0 % Critically high 43.0-75.0 [facility] Comment on above: Performed By: #### H STROPN, CMP #### [facility] [id number] Reba Landis WBC 13.7 103/ul Critically high 4.0-11.0 [facility] Comment on above: Performed By: #### H STROPN, CMP #### [facility] [id number] Reba Landis CRPon 04-22-2021 CRP 0.8 mg/dL Normal <=1.0 [facility] Comment on above: Performed By: #### H STROPN, CMP #### [facility] [id number] Reba Landis PROF 14(COMP METB)on 021 Albumin [Mass/Vol] 2.5 g/dL Critically low 3.5-5.0 [facility] Comment on above: Performed By: #### H STROPN, CMP #### [facility] [address] [address] [address] Reba Landis Albumin/Globulin [Mass ratio] 0.7 {ratio} Normal [facility] Comment on above: Performed By: #### H JEZ, CMP #### [facility] [address] [address] [address] Reba Landis ALP [Catalytic activity/Vol] 62 U/L Normal 38-126 [facility] Comment on above: Performed By: #### H EDNAPN, CMP #### [facility] [address] [address] [address] Reba Landis ALT [Catalytic activity/Vol] 35 U/L Normal 21-72 [facility] Comment on above: Performed By: #### H JEZ, CMP #### [facility] [address] [address] [address] Reba Landis Anion gap [Moles/Vol] 14.0 mmol/L Normal [facility] Comment on above: Performed By: #### H JEZ, CMP #### [facility] [address] [place] [address] Dr. Reba Landis AST [Catalytic activity/Vol] 13 U/L Critically low 17-59 [facility] Comment on above: Performed By: #### H JEZ, CMP #### [facility] [address] [place] [address] Dr. Reba Landis Bilirubin [Mass/Vol] 0.4 mg/dL Normal 0.2-1.3 [facility] Comment on above: Performed By: #### H JEZ, CMP #### [facility] [address] [place] [address] Dr. Reba Landis Calcium [Mass/Vol] 8.5 mg/dL Normal 8.4-10.2 [facility] Comment on above: Performed By: #### H EDNAPN, CMP #### [facility] [address] [place] [address] Dr. Reba Landis Chloride [Moles/Vol] 103 mmol/L Normal 98-107 [facility] Comment on above: Performed By: #### H EDNAPN, CMP #### [facility] [address] [place], [place] [id number] Dr. Reba Landis CO2 [Moles/Vol] 24.8 mmol/L Normal 22.0-30.0 [facility] Comment on above: Performed By: #### H EDNAPN, CMP #### [facility] [address] [address] [address] Reba Landis Creatinine [Mass/Vol] 0.93 mg/dL Normal 0.66-1.25 [facility] Comment on above: Performed By: #### H STROPN, CMP #### [facility] [address] [address] [address] Reba Landis EGFR-AF NIUEAN >60 Normal >=60 [facility] Comment on above: Performed By: #### H EDNAPN, CMP #### [facility] [address] [place] [address] Dr. Reba Landis EGFR-NON AF NIUEAN >60 Normal >=60 [facility] Comment on above: Performed By: #### H EDNAPN, CMP #### [facility] [address] [place] [address] Dr. Reba Landis Globulin (S) [Mass/Vol] 3.7 g/dL Normal [facility] Comment on above: Performed By: #### H EDNAPN, CMP #### [facility] [address] [place] [address] Dr. Reba Landis Glucose [Mass/Vol] 206 mg/dL Critically high 74-106 [facility] Comment on above: Performed By: #### H EDNAPN, CMP #### [facility] [address] [address] [address] Reba Landis Potassium [Moles/Vol] 4.8 mmol/L Normal 3.4-5.0 [facility] Comment on above: Performed By: #### H STROPN, CMP #### [facility] [address] [address] [address] Reba Landis Protein [Mass/Vol] 6.2 g/dL Normal 6.1-8.2 [facility] Comment on above: Performed By: #### H STROPN, CMP #### [facility] [address] [place] [address] Dr. Reba Landis Sodium [Moles/Vol] 137 mmol/L Normal 137-145 [facility] Comment on above: Performed By: #### H EDNAPN, CMP #### [facility] [address] [place] [address] Dr. Reba Landis Urea nitrogen [Mass/Vol] 19.0 mg/dL Normal 9.0-20.0 [facility] Comment on above: Performed By: #### H STROPN, CMP #### [facility] [address] [place] [address] Dr. Reba Landis Urea nitrogen/Creatinin e [Mass ratio] 20.4 mg/mg Normal [facility] Comment on above: Performed By: #### H EDNAPN, CMP #### [facility] [address] [place] [address] Dr. Reba Landis THEOPHYLLINEon 04-22-2021 THEOPHYLLINE 11.0 ug/mL Normal 8.0-20.0 [facility] Comment on above: Performed By: #### H STROPN, CMP #### [facility] [address] [place] [address] Dr. Reba Landis CBC AUTO DIFFon 04-21-2021 BASO # 0.0 103/ul Normal 0.0-0.1 [facility] Comment on above: Performed By: #### H STROPN, CMP #### [facility] [address] [place] [address] Dr. Reba Landis Basophils/100 WBC (Bld) 0.1 % Critically low 0.2-2.0 [facility] Comment on above: Performed By: #### H STROPN, CMP #### [facility] [address] [place] [address] Dr. eRba Landis EO # 0.0 103/ul Normal 0.0-0.7 [facility] Comment on above: Performed By: #### H STROPN, CMP #### [facility] [address] [place] [address] Dr. Reba Landis Eosinophils/100 WBC (Bld) 0.0 % Critically low 0.9-7.0 [facility] Comment on above: Performed By: #### H STROPN, CMP #### [facility] [address] [address] [address] Reba Landis Erythrocyte distribution width (RBC) [Ratio] 11.9 % Normal 11.0-15.0 [facility] Comment on above: Performed By: #### H STROPN, CMP #### [facility] [address] [address] [address] Reba Landis Hematocrit (Bld) [Volume fraction] 40.0 % Critically low 42.0-54.0 [facility] Comment on above: Performed By: #### H STROPN, CMP #### [facility] [address] [place] [address] Dr. Reba Landis Hemoglobin (Bld) [Mass/Vol] 13.3 g/dL Critically low 14.0-18.0 [facility] Comment on above: Performed By: #### H STROPN, CMP #### [facility] [address] [place] [address] Dr. Reba Landis IG # 0.12 10e3/ul Critically high 0.00-0.03 [facility] Comment on above: Performed By: #### H STROPN, CMP #### [facility] [address] [place] [address] Dr. Reba Landis IG % 1.1 % Critically high 0.0-0.5 [facility] Comment on above: Performed By: #### H STROPN, CMP #### [facility] [address] [place] [address] Dr. Reba Landis LYMPH # 0.7 103/ul Critically low 1.2-3.8 [facility] Comment on above: Performed By: #### H STROPN, CMP #### [facility] [address] [place] [address] Dr. Reba Landis Lymphocytes/100 WBC (Bld) 5.9 % Critically low 20.5-60.0 [facility] Comment on above: Performed By: #### H STROPN, CMP #### [facility] [address] [place] [address] Dr. Reba Landis MANUAL DIFF REQ NO Normal [facility] Comment on above: Performed By: #### H STROCALOS, CMP #### [facility] [address] [place] [address] Dr. Reba Landis MCH (RBC) [Entitic mass] 28.5 pg Normal 25.9-34.0 [facility] Comment on above: Performed By: #### H STROPN, CMP #### [facility] [address] [place] [address] Dr. Reba Landis MCHC (RBC) [Mass/Vol] 33.3 g/dL Normal 29.9-35.[address] [facility] Comment on above: Performed By: #### H STROPN, CMP #### [facility] [address] [place] [address] Dr. Reba Landis MCV (RBC) [Entitic vol] 85.8 fL Normal 80.0-94.[address] [facility] Comment on above: Performed By: #### H STROPN, CMP #### [facility] [address] [place] [address] Dr. Reba Landis MONO # 0.5 103/ul Normal 0.3-0.[address] [facility] Comment on above: Performed By: #### H STROPN, CMP #### [facility] [address] [place] [address] Dr. Reba Landis Monocytes/100 WBC (Bld) 4.5 % Normal 1.7-12.[address] [facility] Comment on above: Performed By: #### H STROPN, CMP #### [facility] [address] [place] [address] Dr. Reba Landis NEUT # 9.7 103/ul Critically high 1.4-6.5 [facility] Comment on above: Performed By: #### H STROPN, CMP #### [facility] [address] [place] [address] Dr. Reba Landis Neutrophils/100 WBC (Bld) 88.4 % Critically high 43.0-75.[address] [facility] Comment on above: Performed By: #### H STROPN, CMP #### [facility] [address] [address] [address] Reba Landis Platelet mean volume (Bld) [Entitic vol] 10.7 fL Normal 9.5-13.5 [facility] Comment on above: Performed By: #### H STROPN, CMP #### [facility] [address] [address] [address] Reba Landis PLT 273 103/ul Normal 150-[address] [facility] Comment on above: Performed By: #### H STROPN, CMP #### [facility] [address] [address] [address] Reba Landis RBC 4.66 106/ul Critically low 4.70-6.10 [facility] Comment on above: Performed By: #### H STROPN, CMP #### [facility] [address] [address] [address] Reba Landis WBC 10.9 103/ul Normal 4.0-11.0 [facility] Comment on above: Performed By: #### H STROPN, CMP #### [facility] [address] [address] [address] Reba Landis CRPon 04-21-2021 CRP 1.4 mg/dL Critically high <=1.0 [facility] Comment on above: Performed By: #### H STROPN, CMP #### [facility] [address] [address] [address] Reba Landis PROF 14(COMP METB)on 021 Albumin [Mass/Vol] 2.5 g/dL Critically low 3.5-5.0 [facility] Comment on above: Performed By: #### H STROPN, CMP #### [facility] [address] [address] [address] Reba Landis Albumin/Globulin [Mass ratio] 0.7 {ratio} Normal [facility] Comment on above: Performed By: #### H STROPN, CMP #### [facility] [address] [address] [address] Reba Landis ALP [Catalytic activity/Vol] 63 U/L Normal 38-126 [facility] Comment on above: Performed By: #### H STROPN, CMP #### [facility] [address] [address] [address] Reba Landis ALT [Catalytic activity/Vol] 40 U/L Normal 21-72 [facility] Comment on above: Performed By: #### H STROPN, CMP #### [facility] [address] [address] [address] Reba Landis Anion gap [Moles/Vol] 13.4 mmol/L Normal [facility] Comment on above: Performed By: #### H STROPN, CMP #### [facility] [address] [address] [address] Reba Landis AST [Catalytic activity/Vol] 15 U/L Critically low 17-59 [facility] Comment on above: Performed By: #### H STROPN, CMP #### [facility] [address] [address] [address] Reba Landis Bilirubin [Mass/Vol] 0.4 mg/dL Normal 0.2-1.3 [facility] Comment on above: Performed By: #### H STROPN, CMP #### [facility] [address] [address] [address] Reba Landis Calcium [Mass/Vol] 8.6 mg/dL Normal 8.4-10.2 [facility] Comment on above: Performed By: #### H STROPN, CMP #### [facility] Laboratory [address] [address] [address] Reba Landis Chloride [Moles/Vol] 103 mmol/L Normal 98-107 [facility] Comment on above: Performed By: #### H STROPN, CMP #### [facility] [address] [address] [address] Reba Landis CO2 [Moles/Vol] 26.2 mmol/L Normal 22.0-30.0 [facility] Comment on above: Performed By: #### H STROPN, CMP #### [facility] [address] [address] [address] Reba Landis Creatinine [Mass/Vol] 0.88 mg/dL Normal 0.66-1.25 [facility] Comment on above: Performed By: #### H STROPN, CMP #### [facility] [address] [address] [address] Reba Landis EGFR-AF NIUEAN >60 Normal >=60 [facility] Comment on above: Performed By: #### H STROPN, CMP #### [facility] [address] [address] [address] Reba Landis EGFR-NON AF NIUEAN >60 Normal >=60 [facility] Comment on above: Performed By: #### H STROPN, CMP #### [facility] [address] [address] [address] Reba Landis Globulin (S) [Mass/Vol] 3.5 g/dL Normal [facility] Comment on above: Performed By: #### H STROPN, CMP #### [facility] [address] [address] [address] Reba Landis Glucose [Mass/Vol] 202 mg/dL Critically high 74-106 [facility] Comment on above: Performed By: #### H STROPN, CMP #### [facility] [address] [address] [address] Reba Landis Potassium [Moles/Vol] 4.6 mmol/L Normal 3.4-5.0 [facility] Comment on above: Performed By: #### H STROPN, CMP #### [facility] [address] [address] [address] Reba Landis Protein [Mass/Vol] 6.0 g/dL Critically low 6.1-8.2 [facility] Comment on above: Performed By: #### H STROPN, CMP #### [facility] [address] [address] [address] Reba Landis Sodium [Moles/Vol] 138 mmol/L Normal 137-145 [facility] Comment on above: Performed By: #### H STROPN, CMP #### [facility] [address] [address] [address] Reba Landis Urea nitrogen [Mass/Vol] 16.0 mg/dL Normal 9.0-20.0 [facility] Comment on above: Performed By: #### H JEZ, CMP #### [facility] Laboratory [address] [place] [address] Dr. Reba Landis Urea nitrogen/Creatinin e [Mass ratio] 18.2 mg/mg Normal [facility] Comment on above: Performed By: #### H JEZ, CMP #### [facility] [address] [place] [address] Dr. Reba Landis THEOPHYLLINEon 04-21-2021 THEOPHYLLINE 9.5 ug/mL Normal 8.0-20.0 [facility] Comment on above: Performed By: #### H JEZ, CMP #### [facility] [address] [place] [address] Dr. Reba Landis CBC AUTO DIFFon 04-20-2021 BASO # 0.0 103/ul Normal 0.0-0.1 [facility] Comment on above: Performed By: #### C BC #### [facility] [address] [place] [address] Dr. Reba Landis Basophils/100 WBC (Bld) 0.2 % Normal 0.2-2.0 [facility] Comment on above: Performed By: #### C BC #### [facility] [address] [place] [address] Dr. Reba Landis EO # 0.0 103/ul Normal 0.0-0.7 [facility] Comment on above: Performed By: #### C BC #### [facility] [address] [place] [address] Dr. Reba Landis Eosinophils/100 WBC (Bld) 0.0 % Critically low 0.9-7.[address] [facility] Comment on above: Performed By: #### C BC #### [facility] [address] [place] [address] Dr. Reba Landis Erythrocyte distribution width (RBC) [Ratio] 12.0 % Normal 11.0-15.0 [facility] Comment on above: Performed By: #### C BC #### [facility] [address] [place] [address] Dr. Reba Landis Hematocrit (Bld) [Volume fraction] 43.3 % Normal 42.0-54.0 [facility] Comment on above: Performed By: #### C BC #### [facility] [address] [place] [address] Dr. Reba Landis Hemoglobin (Bld) [Mass/Vol] 14.4 g/dL Normal 14.0-18.[address] [facility] Comment on above: Performed By: #### C BC #### [facility] [address] [place] [address] Dr. Reba Landis IG # 0.16 10e3/ul Critically high 0.00-0.03 [facility] Comment on above: Performed By: #### C BC #### [facility] [address] [place] [address] Dr. Reba Landis IG % 1.0 % Critically high 0.0-0.5 [facility] Comment on above: Performed By: #### C BC #### [facility] [address] [place] [address] Dr. Reba Landis LYMPH # 0.9 103/ul Critically low 1.2-3.8 [facility] Comment on above: Performed By: #### C BC #### [facility] [address] [place] [address] Dr. Reba Landis Lymphocytes/100 WBC (Bld) 5.2 % Critically low 20.5-60.[address] [facility] Comment on above: Performed By: #### C BC #### [facility] [address] [place] [address] Dr. Reba Landis MANUAL DIFF REQ NO Normal [facility] Comment on above: Performed By: #### C BC #### [facility] [address] [place] [address] Dr. Reba Landis MCH (RBC) [Entitic mass] 29.0 pg Normal 25.9-34.0 [facility] Comment on above: Performed By: #### C BC #### [facility] [address] [place] [address] Dr. Reba Landis MCHC (RBC) [Mass/Vol] 33.3 g/dL Normal 29.9-35.2 [facility] Comment on above: Performed By: #### C BC #### [facility] [address] [address] [address] Reba Landis MCV (RBC) [Entitic vol] 87.1 fL Normal 80.0-94.0 [facility] Comment on above: Performed By: #### C BC #### [facility] [address] [address] [address] Reba Landis MONO # 0.5 103/ul Normal 0.3-0.[address] [facility] Comment on above: Performed By: #### C BC #### [facility] [address] [place] [address] Dr. Reba Landis Monocytes/100 WBC (Bld) 3.0 % Normal 1.7-12.0 [facility] Comment on above: Performed By: #### C BC #### [facility] [address] [place] [address] Dr. Reba Landis NEUT # 15.0 103/ul Critically high 1.4-6.5 [facility] Comment on above: Performed By: #### C BC #### [facility] [address] [place] [address] Dr. Reba Landis Neutrophils/100 WBC (Bld) 90.6 % Critically high 43.0-75.0 [facility] Comment on above: Performed By: #### C BC #### [facility] [address] [place] [address] Dr. Reba Landis Platelet mean volume (Bld) [Entitic vol] 10.8 fL Normal 9.5-13.[address] [facility] Comment on above: Performed By: #### C BC #### [facility] [address] [place] [address] Dr. Reba Landis PLT 302 103/ul Normal 150-[address] [facility] Comment on above: Performed By: #### C BC #### [facility] [address] [place] [address] Dr. Reba Landis RBC 4.97 106/ul Normal 4.70-6.[address] [facility] Comment on above: Performed By: #### C BC #### [facility] [address] [address] [address] Reba Landis WBC 16.5 103/ul Critically high 4.0-11.0 [facility] Comment on above: Performed By: #### C BC #### [facility] [address] [address] [address] Reba Landis CRPon 04-20-2021 CRP 3.3 mg/dL Critically high <=1.0 [facility] Comment on above: Performed By: #### T RUFINO, CMP, CRP #### [facility] [address] [address] [address] Reba Landis Covid-19 PCR (CVDTB)on 04-01 SARS-CoV-2 (COVID-19) RNA RADHA+probe Ql (Unsp spec) Not detected Normal NOT DETECTED [facility] Comment on above: Result Comment: This test is not yet approved or cleared by the [place] FDA. When there are no FDA-approved or cleared tests available, and other criteria are met, FDA can make tests available under an emergency access mechanism called an Emergency Use Authorization (EUA). The EUA for this test is supported by the Max of Health and Human Service's (HHS's) declaration [...] SARS-CoV-2. Performed By: #### C VDTBH #### [facility] [address] [address] [address] Reba Landis PROF 14(COMP METB)on 021 Albumin [Mass/Vol] 2.8 g/dL Critically low 3.5-5.[address] [facility] Comment on above: Performed By: #### T RUFINO, CMP, CRP #### [facility] [address] [address] [address] Reba Landis Albumin/Globulin [Mass ratio] 0.7 {ratio} Normal [facility] Comment on above: Performed By: #### T RUFINO, CMP, CRP #### [facility] [address] [address] [address] Reba Landis ALP [Catalytic activity/Vol] 79 U/L Normal 38-126 [facility] Comment on above: Performed By: #### T RUFINO CMP, CRP #### [facility] [address] [address] [address] Reba Landis ALT [Catalytic activity/Vol] 51 U/L Normal 21-72 [facility] Comment on above: Performed By: #### T RUFINO CMP, CRP #### [facility] [address] [address] [address] Reba Landis Anion gap [Moles/Vol] 14.0 mmol/L Normal [facility] Comment on above: Performed By: #### T RUFINO CMP, CRP #### [facility] [address] [address] [address] Reba Landis AST [Catalytic activity/Vol] 24 U/L Normal 17-59 [facility] Comment on above: Performed By: #### T RUFINO, CMP, CRP #### [facility] [address] [address] [address] Reba Landis Bilirubin [Mass/Vol] 0.4 mg/dL Normal 0.2-1.3 [facility] Comment on above: Performed By: #### T RUFINO, CMP, CRP #### [facility] [address] [address] [address] Reba Landis Calcium [Mass/Vol] 8.8 mg/dL Normal 8.4-10.2 [facility] Comment on above: Performed By: #### T RUFINO, CMP, CRP #### [facility] [address] [address] [address] Reba Landis Chloride [Moles/Vol] 103 mmol/L Normal 98-[address] [facility] Comment on above: Performed By: #### Peyton JOY CMP, CRP #### [facility] [address] [address] [address] Reba Landis CO2 [Moles/Vol] 24.1 mmol/L Normal 22.0-30.0 [facility] Comment on above: Performed By: #### Peyton JOY CMP, CRP #### [facility] [address] [address] [address] eRba Landis Creatinine [Mass/Vol] 1.08 mg/dL Normal 0.66-1.[address] [facility] Comment on above: Performed By: #### Peyton JOY CMP, CRP #### [facility] [address] [place] [address] Dr. Reba Landis EGFR-AF NIUEAN >60 Normal >=60 [facility] Comment on above: Performed By: #### Peyton JOY CMP, CRP #### [facility] [address] [place] [address] Dr. Reba Landis EGFR-NON AF NIUEAN >60 Normal >=[address] [facility] Comment on above: Performed By: #### Peyton JOY CMP, CRP #### [facility] [address] [place] [address] Dr. Reba Landis Globulin (S) [Mass/Vol] 4.3 g/dL Normal [facility] Comment on above: Performed By: #### Peyton JOY CMP, CRP #### [facility] [address] [place] [address] Dr. Reba Landis Glucose [Mass/Vol] 204 mg/dL Critically high 74-106 [facility] Comment on above: Performed By: #### Peyton JOY CMP, CRP #### [facility] [address] [place] [address] Dr. Reba Landis Potassium [Moles/Vol] 4.1 mmol/L Normal 3.4-5.[address] [facility] Comment on above: Performed By: #### T RUFINO, CMP, CRP #### [facility] [address] [address] [address] Reba Landis Protein [Mass/Vol] 7.1 g/dL Normal 6.1-8.2 [facility] Comment on above: Performed By: #### T RUFINO, CMP, CRP #### [facility] [address] [place] [address] Dr. Reba Landis Sodium [Moles/Vol] 137 mmol/L Normal 137-145 [facility] Comment on above: Performed By: #### T RUFINO, CMP, CRP #### [facility] [address] [place] [address] Dr. Reba Landis Urea nitrogen [Mass/Vol] 19.0 mg/dL Normal 9.0-20.0 [facility] Comment on above: Performed By: #### T RUFINO, CMP, CRP #### [facility] [address] [place] [address] Dr. Reba Landis Urea nitrogen/Creatinin e [Mass ratio] 17.6 mg/mg Normal [facility] Comment on above: Performed By: #### T RUFINO, CMP, CRP #### [facility] [address] [place] [address] Dr. Reba Landis THEOPHYLLINEon 04-20-2021 THEOPHYLLINE 11.0 ug/mL Normal 8.0-20.0 [facility] Comment on above: Performed By: #### T RUFINO, CMP, CRP #### [facility] [address] [place] [address] Dr. Reba Landis CBC AUTO DIFFon 04-19-2021 BASO # 0.0 103/ul Normal 0.0-0.1 [facility] Comment on above: Performed By: #### H STROPN, CMP #### [facility] [address] [place] [address] Dr. Reba Landis Basophils/100 WBC (Bld) 0.1 % Critically low 0.2-2.0 [facility] Comment on above: Performed By: #### H EDNAPN, CMP #### [facility] [address] [place] [address] Dr. Reba Landis EO # 0.0 103/ul Normal 0.0-0.[address] [facility] Comment on above: Performed By: #### H STROPN, CMP #### [facility] [address] [place] [address] Dr. Reba Landis Eosinophils/100 WBC (Bld) 0.0 % Critically low 0.9-7.0 [facility] Comment on above: Performed By: #### H STROPN, CMP #### [facility] [address] [place] [address] Dr. Reba Landis Erythrocyte distribution width (RBC) [Ratio] 12.1 % Normal 11.0-15.0 [facility] Comment on above: Performed By: #### H STROPN, CMP #### [facility] [address] [place] [address] Dr. Reba Landis Hematocrit (Bld) [Volume fraction] 42.3 % Normal 42.0-54.0 [facility] Comment on above: Performed By: #### H STROPN, CMP #### [facility] [address] [place] [address] Dr. Reba Landis Hemoglobin (Bld) [Mass/Vol] 13.7 g/dL Critically low 14.0-18.0 [facility] Comment on above: Performed By: #### H STROPN, CMP #### [facility] [address] [place] [address] Dr. Reba Landis IG # 0.13 10e3/ul Critically high 0.00-0.03 [facility] Comment on above: Performed By: #### H STROPN, CMP #### [facility] [address] [place] [address] Dr. Reba Landis IG % 0.8 % Critically high 0.0-0.5 [facility] Comment on above: Performed By: #### H STROPN, CMP #### [facility] [address] [place] [address] Dr. Reba Landis LYMPH # 0.8 103/ul Critically low 1.2-3.8 [facility] Comment on above: Performed By: #### H STROPN, CMP #### [facility] [address] [address] [address] Reba Landis Lymphocytes/100 WBC (Bld) 5.0 % Critically low 20.5-60.0 [facility] Comment on above: Performed By: #### H STROPN, CMP #### [facility] [address] [address] [address] Reba Landis MANUAL DIFF REQ NO Normal [facility] Comment on above: Performed By: #### H STROPN, CMP #### [facility] [address] [address] [address] Reba Landis MCH (RBC) [Entitic mass] 28.5 pg Normal 25.9-34.[address] [facility] Comment on above: Performed By: #### H STROPN, CMP #### [facility] [address] [place] [address] Dr. Reba Landis MCHC (RBC) [Mass/Vol] 32.4 g/dL Normal 29.9-35.[address] [facility] Comment on above: Performed By: #### H STROPN, CMP #### [facility] [address] [place] [address] Dr. Reba Landis MCV (RBC) [Entitic vol] 87.9 fL Normal 80.0-94.0 [facility] Comment on above: Performed By: #### H STROPN, CMP #### [facility] [address] [address] [address] Reba Landis MONO # 0.4 103/ul Normal 0.3-0.[address] [facility] Comment on above: Performed By: #### H STROPN, CMP #### [facility] [address] [place] [address] Dr. Reba Landis Monocytes/100 WBC (Bld) 2.3 % Normal 1.7-12.[address] [facility] Comment on above: Performed By: #### H STROPN, CMP #### [facility] [address] [place] [address] Dr. Reba Landis NEUT # 14.3 103/ul Critically high 1.4-6.5 [facility] Comment on above: Performed By: #### H STROPN, CMP #### [facility] [address] [address] [address] Reba Landis Neutrophils/100 WBC (Bld) 91.8 % Critically high 43.0-75.0 [facility] Comment on above: Performed By: #### H STROPN, CMP #### [facility] [address] [address] [address] Reba Landis Platelet mean volume (Bld) [Entitic vol] 10.9 fL Normal 9.5-13.5 [facility] Comment on above: Performed By: #### H STROPN, CMP #### [facility] [address] [address] [address] Reba Landis PLT 234 103/ul Normal 150-450 [facility] Comment on above: Performed By: #### H STROPN, CMP #### [facility] [address] [address] [address] Reba Landis RBC 4.81 106/ul Normal 4.70-6.10 [facility] Comment on above: Performed By: #### H STROPN, CMP #### [facility] [address] [address] [address] Reba Landis WBC 15.5 103/ul Critically high 4.0-11.0 [facility] Comment on above: Performed By: #### H STROPN, CMP #### [facility] [address] [address] [address] Reba Landis CRPon 04-19-2021 CRP 5.6 mg/dL Critically high <=1.0 [facility] Comment on above: Performed By: #### H STROPN, CMP #### [facility] [address] [address] [address] Reba Landis PROF 14(COMP METB)on 021 Albumin [Mass/Vol] 2.6 g/dL Critically low 3.5-5.0 [facility] Comment on above: Performed By: #### H STROPN, CMP #### [facility] [address] [address] [address] Reba Landis Albumin/Globulin [Mass ratio] 0.6 {ratio} Normal [facility] Comment on above: Performed By: #### H JEZ, CMP #### [facility] [address] [address] [address] Reba Landis ALP [Catalytic activity/Vol] 78 U/L Normal 38-126 [facility] Comment on above: Performed By: #### H EDNAPN, CMP #### [facility] [address] [address] [address] Reba Landis ALT [Catalytic activity/Vol] 51 U/L Normal 21-72 [facility] Comment on above: Performed By: #### H JEZ, CMP #### [facility] [address] [place] [address] Dr. Reba Landis Anion gap [Moles/Vol] 10.6 mmol/L Normal [facility] Comment on above: Performed By: #### H JEZ, CMP #### [facility] [address] [place] [address] Dr. Reba Landis AST [Catalytic activity/Vol] 26 U/L Normal 17-59 [facility] Comment on above: Performed By: #### H JEZ, CMP #### [facility] [address] [place] [address] Dr. Reba Landis Bilirubin [Mass/Vol] 0.5 mg/dL Normal 0.2-1.3 [facility] Comment on above: Performed By: #### H JEZ, CMP #### [facility] [address] [place] [address] Dr. Reba Landis Calcium [Mass/Vol] 8.8 mg/dL Normal 8.4-10.2 [facility] Comment on above: Performed By: #### H JEZ, CMP #### [facility] [address] [address] [address] Reba Landis Chloride [Moles/Vol] 103 mmol/L Normal 98-107 [facility] Comment on above: Performed By: #### H JEZ, CMP #### [facility] [address] [place] [address] Dr. Reba Landis CO2 [Moles/Vol] 28.9 mmol/L Normal 22.0-30.0 [facility] Comment on above: Performed By: #### H EDNAPN, CMP #### [facility] [address] [address] [address] Reba Landis Creatinine [Mass/Vol] 1.18 mg/dL Normal 0.66-1.25 [facility] Comment on above: Performed By: #### H STROPN, CMP #### [facility] [address] [place] [address] Dr. Reba Landis EGFR-AF NIUEAN >60 Normal >=60 [facility] Comment on above: Performed By: #### H EDNAPN, CMP #### [facility] [address] [place] [address] Dr. Reba Landis EGFR-NON AF NIUEAN >60 Normal >=60 [facility] Comment on above: Performed By: #### H JEZ, CMP #### [facility] [address] [address] [address] Reba Landis Globulin (S) [Mass/Vol] 4.2 g/dL [facility] [facility] Comment on above: Performed By: #### H JEZ, CMP #### [facility] [address] [address] [address] Reba Landis Glucose [Mass/Vol] 204 mg/dL Critically high 74-106 T [facility] Comment on above: Performed By: #### H JEZ, CMP #### [facility] [address] [address] [address] Reba Landis Potassium [Moles/Vol] 4.5 mmol/L Normal 3.4-5.0 [facility] Comment on above: Performed By: #### H STROPN, CMP #### [facility] [address] [address] [address] Reba Landis Protein [Mass/Vol] 6.8 g/dL Normal 6.1-8.2 [facility] Comment on above: Performed By: #### H EDNAPN, CMP #### [facility] [address] [address] [address] Reba Landis Sodium [Moles/Vol] 138 mmol/L Normal 137-145 [facility] Comment on above: Performed By: #### H JEZ, CMP #### [facility] [address] [place] [address] Dr. Reba Landis Urea nitrogen [Mass/Vol] 19.0 mg/dL Normal 9.0-20.0 [facility] Comment on above: Performed By: #### H JEZ, CMP #### [facility] [address] [place] [address] Dr. Reba Landis Urea nitrogen/Creatinin e [Mass ratio] 16.1 mg/mg Normal [facility] Comment on above: Performed By: #### H JEZ, CMP #### [facility] [address] [place] [address] Dr. Reba Landis THEOPHYLLINEon 04-19-2021 THEOPHYLLINE 10.6 ug/mL Normal 8.0-20.0 [facility] Comment on above: Performed By: #### H JEZ, CMP #### [facility] [address] [place] [address] Dr. Reba Landis CBC W MANUAL DIFFon 04-18-20 ATYPICAL LYMPH # 0.00 103/ul Normal [facility] Comment on above: Performed By: #### C BC #### [facility] [address] [place] [address] Dr. Reba Landis ATYPICAL LYMPH % 0 % Normal [facility] Comment on above: Performed By: #### C BC #### [facility] [address] [place] [address] Dr. Reba Landis BAND # Normal 0.0-0.[address] [facility] Comment on above: Performed By: #### C BC #### [facility] [address] [place] [address] Dr. Reba Landis BAND % Normal 0-[address] [facility] Comment on above: Performed By: #### C BC #### [facility] [address] [place] [address] Dr. Reba Landis BASOM # 0.00 103/ul Normal 0.00-0.10 [facility] Comment on above: Performed By: #### C BC #### [facility] [address] [place] [address] Dr. Reba Landis BASOM % 0.0 % Critically low 0.2-2.0 [facility] Comment on above: Performed By: #### C BC #### [facility] [address] [place] [address] Dr. Reba Landis BLAST # Normal [facility] Comment on above: Performed By: #### C BC #### [facility] [address] [place] [address] Dr. Reba Landis BLAST % Normal [facility] Comment on above: Performed By: #### C BC #### [facility] [address] [place] [address] Dr. Reba Landis CORRECTED WBC Normal 4.0-11.0 [facility] Comment on above: Performed By: #### C BC #### [facility] [address] [place] [address] Dr. Reba Landis EOS # 0.09 103/ul Normal 0.00-0.70 [facility] Comment on above: Performed By: #### C BC #### [facility] [address] [place] [address] Dr. Reba Landis EOS% 1.0 % Normal 0.9-7.0 [facility] Comment on above: Performed By: #### C BC #### [facility] [address] [place] [address] Dr. Reba Landis HCT 43.9 % Normal 42.0-54.0 [facility] Comment on above: Performed By: #### C BC #### [facility] [address] [place] [address] Dr. Reba Landis HGB 14.1 g/dl Normal 14.0-18.0 [facility] Comment on above: Performed By: #### C BC #### [facility] [address] [place] [address] Dr. Reba Landis LYMPHM # 0.92 103/ul Critically low 1.20-3.80 [facility] Comment on above: Performed By: #### C BC #### [facility] [address] [place] [address] Dr. Reba Landis LYMPHM% 10.0 % Critically low 20.5-60.0 [facility] Comment on above: Performed By: #### C BC #### [facility] [address] [place] [address] Dr. Reba Landis MCH 28.7 pg Normal 25.9-34.0 [facility] Comment on above: Performed By: #### C BC #### [facility] [address] [place] [address] Dr. Reba Landis MCHC 32.1 g/dl Normal 29.9-35.2 [facility] Comment on above: Performed By: #### C BC #### [facility] [address] [place] [address] Dr. Reba Landis MCV 89.4 fL Normal 80.0-94.0 [facility] Comment on above: Performed By: #### C BC #### [facility] [address] [place] [address] Dr. Reba Landis METAMYELOCYTE # Normal [facility] Comment on above: Performed By: #### C BC #### [facility] [address] [place] [address] Dr. Reba Landis METAMYELOCYTE % Normal [facility] Comment on above: Performed By: #### C BC #### [facility] [address] [place] [address] Dr. Reba Landis MONOM# 0.18 103/ul Critically low 0.30-0.80 [facility] Comment on above: Performed By: #### C BC #### [facility] [address] [place] [address] Dr. Reba Landis MONOM% 2.0 % Normal 1.7-12.0 [facility] Comment on above: Performed By: #### C BC #### [facility] [address] [place] [address] Dr. Reba Landis MPV 11.1 fL Normal 9.5-13.5 [facility] Comment on above: Performed By: #### C BC #### [facility] [address] [place] [address] Dr. Reba Landis MYELOCYTE # Normal [facility] Comment on above: Performed By: #### C BC #### [facility] [address] [place] [address] Dr. Reba Landis MYELOCYTE % Normal [facility] Comment on above: Performed By: #### C BC #### [facility] [address] [place] [address] Dr. Reba Landis NRBC Normal [facility] Comment on above: Performed By: #### C BC #### [facility] [address] [place] [address] Dr. Reba Landis PLT 175 103/ul Normal 150-450 [facility] Comment on above: Performed By: #### C BC #### [facility] [address] [place] [address] Dr. Reba Landis RBC 4.91 106/ul Normal 4.70-6.10 [facility] Comment on above: Performed By: #### C BC #### [facility] [address] [place] [address] Dr. Reba Landis RDW 12.1 % Normal 11.0-15.0 [facility] Comment on above: Performed By: #### C BC #### [facility] [address] [place] [address] Dr. Reba Landis SEG # 8.00 103/ul Critically high 1.40-6.50 [facility] Comment on above: Performed By: #### C BC #### [facility] [address] [place] [address] Dr. Reba Landis SEG % 87.0 % Critically high 43.0-75.0 [facility] Comment on above: Performed By: #### C BC #### [facility] [address] [place] [address] Dr. Reba Landis WBC 9.2 103/ul Normal 4.0-11.0 [facility] Comment on above: Performed By: #### C BC #### [facility] [address] [place] [address] Dr. Reba Landis CRPon 04-18-2021 CRP [Mass/Vol] mg/L Critically high <=1.0 [facility] Comment on above: Performed By: #### C BC #### [facility] [address] [place] [address] Dr. Reba Landis PROF 14(COMP METB)on 021 Albumin [Mass/Vol] 2.8 g/dL Critically low 3.5-5.0 [facility] Comment on above: Performed By: #### C BC #### [facility] [address] [place] [address] Dr. Reba Landis Albumin/Globulin [Mass ratio] 0.6 {ratio} Normal [facility] Comment on above: Performed By: #### C BC #### [facility] [address] [place] [address] Dr. Reba Landis ALP [Catalytic activity/Vol] 86 U/L Normal 38-126 [facility] Comment on above: Performed By: #### C BC #### [facility] [address] [place] [address] Dr. Reba Landis ALT [Catalytic activity/Vol] 63 U/L Normal 21-72 [facility] Comment on above: Performed By: #### C BC #### [facility] [address] [place] [address] Dr. Reba Landis Anion gap [Moles/Vol] 12.7 mmol/L Normal [facility] Comment on above: Performed By: #### C BC #### [facility] [address] [place] [address] Dr. Reba Landis AST [Catalytic activity/Vol] 54 U/L Normal 17-59 [facility] Comment on above: Performed By: #### C BC #### [facility] [address] [place] [address] Dr. Reba Landis Bilirubin [Mass/Vol] 0.5 mg/dL Normal 0.2-1.3 [facility] Comment on above: Performed By: #### C BC #### [facility] [address] [address] [address] Reba Landis Calcium [Mass/Vol] 9.0 mg/dL Normal 8.4-10.2 [facility] Comment on above: Performed By: #### C BC #### [facility] [address] [place] [address] Dr. Reba Landis Chloride [Moles/Vol] 101 mmol/L Normal 98-107 [facility] Comment on above: Performed By: #### C BC #### [facility] [address] [place] [address] Dr. Reba Landis CO2 [Moles/Vol] 27.6 mmol/L Normal 22.0-30.0 [facility] Comment on above: Performed By: #### C BC #### [facility] [address] [place] [address] Dr. Reba Landis Creatinine [Mass/Vol] 0.97 mg/dL Normal 0.66-1.25 [facility] Comment on above: Performed By: #### C BC #### [facility] [address] [place] [address] Dr. Reba Landis EGFR-AF NIUEAN >60 Normal >=60 [facility] Comment on above: Performed By: #### C BC #### [facility] [address] [place] [address] Dr. Reba Landis EGFR-NON AF NIUEAN >60 Normal >=60 [facility] Comment on above: Performed By: #### C BC #### [facility] [address] [place] [address] Dr. Reba Landis Globulin (S) [Mass/Vol] 4.6 g/dL Normal [facility] Comment on above: Performed By: #### C BC #### [facility] [address] [place] [address] Dr. Reba Landis Glucose [Mass/Vol] 170 mg/dL Critically high 74-106 T [facility] Comment on above: Performed By: #### C BC #### [facility] [address] [place] [address] Dr. Reba Landis Potassium [Moles/Vol] 4.3 mmol/L Normal 3.4-5.0 [facility] Comment on above: Performed By: #### C BC #### [facility] [address] [address] [address] Reba Landis Protein [Mass/Vol] 7.4 g/dL Normal 6.1-8.2 [facility] Comment on above: Performed By: #### C BC #### [facility] [address] [address] [address] Rbea Landis Sodium [Moles/Vol] 137 mmol/L Normal 137-145 [facility] Comment on above: Performed By: #### C BC #### [facility] [address] [place] [address] Dr. Reba Landis Urea nitrogen [Mass/Vol] 13.0 mg/dL Normal 9.0-20.0 [facility] Comment on above: Performed By: #### C BC #### [facility] [address] [place] [address] Dr. Reba Landis Urea nitrogen/Creatinin e [Mass ratio] 13.4 mg/mg Normal [facility] Comment on above: Performed By: #### C BC #### [facility] [address] [place] [address] Dr. Reba Landis THEOPHYLLINEon 04-18-2021 THEOPHYLLINE 8.5 ug/mL Normal 8.0-20.0 [facility] Comment on above: Performed By: #### C BC #### [facility] [address] [place] [address] Dr. Reba Landis CBC AUTO DIFFon 04-17-2021 BASO # 0.0 103/ul Normal 0.0-0.1 [facility] Comment on above: Performed By: #### C BC #### [facility] [address] [place] [address] Dr. Reba Landis Basophils/100 WBC (Bld) 0.1 % Critically low 0.2-2.0 [facility] Comment on above: Performed By: #### C BC #### [facility] [address] [address] [address] Reba Landis EO # 0.0 103/ul Normal 0.0-0.[address] [facility] Comment on above: Performed By: #### C BC #### [facility] [address] [place] [address] Dr. Reba Landis Eosinophils/100 WBC (Bld) 0.0 % Critically low 0.9-7.0 [facility] Comment on above: Performed By: #### C BC #### [facility] [address] [place] [address] Dr. Reba Landis Erythrocyte distribution width (RBC) [Ratio] 12.0 % Normal 11.0-15.0 [facility] Comment on above: Performed By: #### C BC #### [facility] [address] [place] [address] Dr. Reba Landis Hematocrit (Bld) [Volume fraction] 43.7 % Normal 42.0-54.0 [facility] Comment on above: Performed By: #### C BC #### [facility] [address] [place] [address] Dr. Reba Landis Hemoglobin (Bld) [Mass/Vol] 14.7 g/dL Normal 14.0-18.0 [facility] Comment on above: Performed By: #### C BC #### [facility] [address] [place] [address] Dr. Reba Landis IG # 0.22 10e3/ul Critically high 0.00-0.03 [facility] Comment on above: Performed By: #### C BC #### [facility] [address] [place] [address] Dr. Reba Landis IG % 1.4 % Critically high 0.0-0.5 [facility] Comment on above: Performed By: #### C BC #### [facility] [address] [place] [address] Dr. Reba Landis LYMPH # 0.9 103/ul Critically low 1.2-3.8 [facility] Comment on above: Performed By: #### C BC #### [facility] [address] [address] [address] Reba Landis Lymphocytes/100 WBC (Bld) 5.7 % Critically low 20.5-60.[address] [facility] Comment on above: Performed By: #### C BC #### [facility] [address] [address] [address] Reba Landis MANUAL DIFF REQ NO Normal [facility] Comment on above: Performed By: #### C BC #### [facility] [address] [address] [address] Reba Landis MCH (RBC) [Entitic mass] 28.8 pg Normal 25.9-34.[address] [facility] Comment on above: Performed By: #### C BC #### [facility] [address] [place] [address] Dr. Reba Landis MCHC (RBC) [Mass/Vol] 33.6 g/dL Normal 29.9-35.[address] [facility] Comment on above: Performed By: #### C BC #### [facility] [address] [place] [address] Dr. Reba Landis MCV (RBC) [Entitic vol] 85.5 fL Normal 80.0-94.[address] [facility] Comment on above: Performed By: #### C BC #### [facility] [address] [place] [address] Dr. Reba Landis MONO # 0.3 103/ul Normal 0.3-0.[address] [facility] Comment on above: Performed By: #### C BC #### [facility] [address] [place] [address] Dr. Reba Landis Monocytes/100 WBC (Bld) 2.2 % Normal 1.7-12.[address] [facility] Comment on above: Performed By: #### C BC #### [facility] [address] [place] [address] Dr. Reba Landis NEUT # 13.8 103/ul Critically high 1.4-6.5 [facility] Comment on above: Performed By: #### C BC #### [facility] [address] [place] [address] Dr. Reba Landis Neutrophils/100 WBC (Bld) 90.6 % Critically high 43.0-75.0 [facility] Comment on above: Performed By: #### C BC #### [facility] [address] [place] [address] Dr. Reba Landis Platelet mean volume (Bld) [Entitic vol] 11.3 fL Normal 9.5-13.5 [facility] Comment on above: Performed By: #### C BC #### [facility] [address] [place] [address] Dr. Reba Landis PLT 168 103/ul Normal 150-450 [facility] Comment on above: Performed By: #### C BC #### [facility] [address] [place] [address] Dr. Reba Landis RBC 5.11 106/ul Normal 4.70-6.10 [facility] Comment on above: Performed By: #### C BC #### [facility] [address] [place] [address] Dr. Reba Landis WBC 15.2 103/ul Critically high 4.0-11.0 [facility] Comment on above: Performed By: #### C BC #### [facility] [address] [place] [address] Dr. Reba Landis CRPon 04-17-2021 CRP [Mass/Vol] mg/L Critically high <=1.0 [facility] Comment on above: Performed By: #### C BC #### [facility] [address] [place] [address] Dr. Reba Landis CULTURE BLOODon 04-17-2021 Microscopic examination of blood, culture Culture Observations: NO GROWTH AT 5 DAYS. Normal [facility] Comment on above: Performed By: #### Ruddy STORY, CMP #### [facility] [address] [place] [address] Dr. Reba Landis Microscopic examination of blood, culture Culture Observations: NO GROWTH AT 5 DAYS. Normal [facility] Comment on above: Performed By: #### H JEZ, CMP #### [facility] [address] [place] [address] Dr. Reba Landis CULTURE SPUTUMon 04-17-2021 CULTURE SPUTUM Culture Observations : NORMAL RESPIRATORY JIN. Normal [facility] Comment on above: Performed By: #### H JEZ, CMP #### [facility] [address] [place] [address] Dr. Reba Landis LACTATE/LACTIC ACIDon 2020 Lactate [Moles/Vol] 1.7 mmol/L Normal 0.7-2.0 [facility] Comment on above: Performed By: #### H JEZ, CMP #### [facility] [address] [address] [address] Reba Landis Lactate [Moles/Vol] 1.6 mmol/L Normal 0.7-2.0 [facility] Comment on above: Performed By: #### L ACT #### [facility] [address] [place] [address] Dr. Reba Landis PROF 14(COMP METB)on 021 Albumin [Mass/Vol] 3.3 g/dL Critically low 3.5-5.[address] [facility] Comment on above: Performed By: #### C BC #### [facility] [address] [place] [address] Dr. Reba Landis Albumin/Globulin [Mass ratio] 0.8 {ratio} Normal [facility] Comment on above: Performed By: #### C BC #### [facility] [address] [place] [address] Dr. Reba Landis ALP [Catalytic activity/Vol] 68 U/L Normal 38-[address] [facility] Comment on above: Performed By: #### C BC #### [facility] [address] [place] [address] Dr. Reba Landis ALT [Catalytic activity/Vol] 41 U/L Normal 21-72 [facility] Comment on above: Performed By: #### C BC #### [facility] [address] [place] [address] Dr. Reba Landis Anion gap [Moles/Vol] 15.2 mmol/L Normal [facility] Comment on above: Performed By: #### C BC #### [facility] [address] [address] [address] Reba Landis AST [Catalytic activity/Vol] 32 U/L Normal 17-59 [facility] Comment on above: Performed By: #### C BC #### [facility] [address] [address] [address] Reba Landis Bilirubin [Mass/Vol] 0.8 mg/dL Normal 0.2-1.3 [facility] Comment on above: Performed By: #### C BC #### [facility] [address] [address] [address] Reba Landis Calcium [Mass/Vol] 8.9 mg/dL Normal 8.4-10.2 [facility] Comment on above: Performed By: #### C BC #### [facility] [address] [place] [address] Dr. Reba Landis Chloride [Moles/Vol] 95 mmol/L Critically low 98-107 [facility] Comment on above: Performed By: #### C BC #### [facility] [address] [address] [address] Reba Landis CO2 [Moles/Vol] 27.1 mmol/L Normal 22.0-30.0 [facility] Comment on above: Performed By: #### C BC #### [facility] [address] [place] [address] Dr. Reba Landis Creatinine [Mass/Vol] 1.05 mg/dL Normal 0.66-1.25 [facility] Comment on above: Performed By: #### C BC #### [facility] [address] [address] [address] Reba Landis EGFR-AF NIUEAN >60 Normal >=60 [facility] Comment on above: Performed By: #### C BC #### [facility] [address] [place] [address] Dr. Reba Landis EGFR-NON AF NIUEAN >60 Normal >=60 [facility] Comment on above: Performed By: #### C BC #### [facility] [address] [place] [address] Dr. Reba Landis Globulin (S) [Mass/Vol] 4.4 g/dL Normal [facility] Comment on above: Performed By: #### C BC #### [facility] [address] [address] [address] Reba Landis Glucose [Mass/Vol] 133 mg/dL Critically high 74-106 T [facility] Comment on above: Performed By: #### C BC #### [facility] [address] [address] [address] Reba Landis Potassium [Moles/Vol] 3.3 mmol/L Critically low 3.4-5.0 [facility] Comment on above: Performed By: #### C BC #### [facility] [address] [place] [address] Dr. Reba Landis Protein [Mass/Vol] 7.7 g/dL Normal 6.1-8.2 [facility] Comment on above: Performed By: #### C BC #### [facility] [address] [address] [address] Reba Landis Sodium [Moles/Vol] 134 mmol/L Critically low 137-145 [facility] Comment on above: Performed By: #### C BC #### [facility] [address] [place] [address] Dr. Reba Landis Urea nitrogen [Mass/Vol] 10.0 mg/dL Normal 9.0-20.0 [facility] Comment on above: Performed By: #### C BC #### [facility] [address] [place] [address] Dr. Reba Landis Urea nitrogen/Creatinin e [Mass ratio] 9.5 mg/mg Normal [facility] Comment on above: Performed By: #### C BC #### [facility] [address] [place] [address] Dr. Reba Landis SPUTUM GRAM STAINon 04-17-20 COMMENTS [facility] Comment on above: Performed By: #### C BC #### [facility] [address] [place] [address] Dr. Reba Landis DIPHTHEROIDS Normal [facility] Comment on above: Performed By: #### C BC #### [facility] [address] [address] [address] Reba Landis EPITHELIALS <[address] [facility] Comment on above: Performed By: #### C BC #### [facility] [address] [address] [address] Reba Landis FUNGAL ELEMENTS Normal [facility] Comment on above: Performed By: #### C BC #### [facility] [address] [address] [address] Reba Landis GRAM NEG BACILLI MODERATE Normal [facility] Comment on above: Performed By: #### C BC #### [facility] [address] [place] [address] Dr. Reba Landis GRAM NEG DIPPLOCOCCI Normal [facility] Comment on above: Performed By: #### C BC #### [facility] [address] [address] [address] Reba Landis GRAM POS BACILLI MODERATE Normal [facility] Comment on above: Performed By: #### C BC #### [facility] [address] [address] [address] Reba Landis GRAM POSITIVE COCCI MODERATE Normal [facility] Comment on above: Performed By: #### C BC #### [facility] [address] [place] [address] Dr. Reba Landis WBC (Bld) [#/Vol] 10*3/uL Normal [facility] Comment on above: Performed By: #### C BC #### [facility] [address] [place] [address] Dr. Reba Landis TROPONIN, HIGH SENSITIVITYon 04-17-2021 HSTROP 7.7 pg/mL Normal 4.0-42.[address] [facility] Comment on above: Result Comment: CUT- OFF POINTS HAVE BEEN ESTABLISHED BASED ON THE FOURTH UNIVERSAL DEFINITIONS OF MYOCARDIAL INFARCTION. THE UPPER REFERENCE LIMIT (URL) OF TROPONIN, DEFINED THE 99TH PERCENTILE OF cTnI DISTRIBUTION IN A REFERENCE POPULATION, HAS BEEN CONFIRMED THE DECISION THRESHOLD FOR [place] DIAGNOSIS. Performed By: #### C BC #### [facility] [address] [address] [address] Reba Landis HSTROP 7.0 pg/mL Normal 4.0-42.[address] [facility] Comment on above: Result Comment: CUT- OFF POINTS HAVE BEEN ESTABLISHED BASED ON THE FOURTH UNIVERSAL DEFINITIONS OF MYOCARDIAL INFARCTION. THE UPPER REFERENCE LIMIT (URL) OF TROPONIN, DEFINED THE 99TH PERCENTILE OF cTnI DISTRIBUTION IN A REFERENCE POPULATION, HAS BEEN CONFIRMED THE DECISION THRESHOLD FOR [place] DIAGNOSIS. Performed By: #### C BC #### [facility] [address] [address] [address] Reba Landis XR CHEST 1 Von [...] CHRISTINE PRYOR Date: 2021-04-17 04:[address] [facility] CBC W MANUAL DIFFon 04-15-20 21 ATYPICAL LYMPH # Normal [facility] Comment on above: Performed By: #### H STROPN, CMP #### [facility] [address] [place] [address] Dr. Reba Landis ATYPICAL LYMPH % Normal [facility] Comment on above: Performed By: #### H STROPN, CMP #### [facility] [address] [place] [address] Dr. Reba Landis BAND # Normal 0.0-0.[address] [facility] Comment on above: Performed By: #### H STROPN, CMP #### [facility] [address] [place] [address] Dr. Reba Landis BAND % Normal 0-[address] [facility] Comment on above: Performed By: #### H STROPN, CMP #### [facility] [address] [address] [address] Reba Landis BASOM # 0.00 103/ul Normal 0.00-0.[address] [facility] Comment on above: Performed By: #### H STROPN, CMP #### [facility] [address] [address] [address] Reba Landis BASOM % 0.0 % Critically low 0.2-2.0 [facility] Comment on above: Performed By: #### H STROPN, CMP #### [facility] [address] [address] [address] Reba Landis BLAST # Normal [facility] Comment on above: Performed By: #### H STROPN, CMP #### [facility] [address] [place] [address] Dr. Reba Landis BLAST % Normal [facility] Comment on above: Performed By: #### H STROPN, CMP #### [facility] [address] [place] [address] Dr. Reba Landis CORRECTED WBC Normal 4.0-11.0 [facility] Comment on above: Performed By: #### H STROPN, CMP #### [facility] [address] [place] [address] Dr. Reba Landis EOS # 0.00 103/ul Normal 0.00-0.70 [facility] Comment on above: Performed By: #### H STROPN, CMP #### [facility] [address] [place] [address] Dr. Reba Landis EOS% 0.0 % Critically low 0.9-7.0 [facility] Comment on above: Performed By: #### H STROPN, CMP #### [facility] [address] [place] [address] Dr. Reba Landis HCT 44.6 % Normal 42.0-54.0 [facility] Comment on above: Performed By: #### H STROPN, CMP #### [facility] [address] [place] [address] Dr. Reba Landis HGB 15.4 g/dl Normal 14.0-18.0 [facility] Comment on above: Performed By: #### H STROPN, CMP #### [facility] [address] [address] [address] Reba Landis LYMPHM # 0.34 103/ul Critically low 1.20-3.80 [facility] Comment on above: Performed By: #### H STROPN, CMP #### [facility] [address] [address] [address] Reba Landis LYMPHM% 6.0 % Critically low 20.5-60.0 [facility] Comment on above: Performed By: #### H STROPN, CMP #### [facility] [address] [place] [address] Dr. Reba Landis MCH 29.7 pg Normal 25.9-34.0 [facility] Comment on above: Performed By: #### H STROPN, CMP #### [facility] [address] [place] [address] Dr. Reba Landis MCHC 34.5 g/dl Normal 29.9-35.2 [facility] Comment on above: Performed By: #### H STROPN, CMP #### [facility] [address] [place] [address] Dr. Reba Landis MCV 86.1 fL Normal 80.0-94.0 [facility] Comment on above: Performed By: #### H STROPN, CMP #### [facility] [address] [place] [address] Dr. Reba Landis METAMYELOCYTE # Normal [facility] Comment on above: Performed By: #### H STROPN, CMP #### [facility] [address] [place] [address] Dr. Reba Landis METAMYELOCYTE % Normal [facility] Comment on above: Performed By: #### H STROPN, CMP #### [facility] [address] [place] [address] Dr. Reba Landis MONOM# 0.22 103/ul Critically low 0.30-0.80 [facility] Comment on above: Performed By: #### H STROPN, CMP #### [facility] [address] [address] [address] Reba Landis MONOM% 4.0 % Normal 1.7-12.0 [facility] Comment on above: Performed By: #### H STROPN, CMP #### [facility] [address] [address] [address] Reba Landis MPV 10.7 fL Normal 9.5-13.5 [facility] Comment on above: Performed By: #### H STROPN, CMP #### [facility] [address] [address] [address] Reba Landis MYELOCYTE # Normal [facility] Comment on above: Performed By: #### H STROPN, CMP #### [facility] [address] [place] [address] Dr. Reba Landis MYELOCYTE % Normal [facility] Comment on above: Performed By: #### H STROPN, CMP #### [facility] [address] [address] [address] Reba Landis NRBC Normal [facility] Comment on above: Performed By: #### H STROPN, CMP #### [facility] [address] [place] [address] Dr. Reba Landis PLT 153 103/ul Normal 150-450 [facility] Comment on above: Performed By: #### H STROPN, CMP #### [facility] [address] [address] [address] Reba Landis RBC 5.18 106/ul Normal 4.70-6.[address] [facility] Comment on above: Performed By: #### H STROPN, CMP #### [facility] [address] [address] [address] Reba Landis RDW 11.9 % Normal 11.0-15.0 [facility] Comment on above: Performed By: #### H STROPN, CMP #### [facility] [address] [place] [address] Dr. Reba Landis SEG # 5.04 103/ul Normal 1.40-6.50 [facility] Comment on above: Performed By: #### H STROPN, CMP #### [facility] [address] [address] [address] Reba Landis SEG % 90.0 % Critically high 43.0-75.0 [facility] Comment on above: Performed By: #### H STROPN, CMP #### [facility] [address] [address] [address] Reba Landis WBC 5.6 103/ul Normal 4.0-11.0 [facility] Comment on above: Performed By: #### H STROPN, CMP #### [facility] [address] [address] [address] Reba Landis CTA CHEST WO W CONon 021 CTA CHEST WO W CON EXAMINATION: [...] by: ASHELY CAMPOS Date: 2021-04-15 15:59 Normal [facility] LACTATE/LACTIC ACIDon 2020 Lactate [Moles/Vol] 1.6 mmol/L Normal 0.7-2.0 [facility] Comment on above: Performed By: #### H STROPN, CMP #### [facility] [address] [address] [address] Reba Landis PROF 14(COMP METB)on 021 Albumin [Mass/Vol] 3.8 g/dL Normal 3.5-5.0 [facility] Comment on above: Performed By: #### H JEZ, CMP #### [facility] [address] [address] [address] Reba Landis Albumin/Globulin [Mass ratio] 0.9 {ratio} Normal [facility] Comment on above: Performed By: #### H JEZ, CMP #### [facility] [address] [address] [address] Reba Landis ALP [Catalytic activity/Vol] 68 U/L Normal 38-126 [facility] Comment on above: Performed By: #### H JEZ, CMP #### [facility] [address] [address] [address] Reba Landis ALT [Catalytic activity/Vol] 27 U/L Normal 21-72 [facility] Comment on above: Performed By: #### H JEZ, CMP #### [facility] [address] [address] [address] Reba Landis Anion gap [Moles/Vol] 11.0 mmol/L Normal [facility] Comment on above: Performed By: #### H JEZ, CMP #### [facility] [address] [address] [address] Reba Landis AST [Catalytic activity/Vol] 23 U/L Normal 17-59 [facility] Comment on above: Performed By: #### H JEZ, CMP #### [facility] [address] [address] [address] Reba Landis Bilirubin [Mass/Vol] 0.5 mg/dL Normal 0.2-1.[address] [facility] Comment on above: Performed By: #### H EDNAPN, CMP #### [facility] [address] [address] [address] Reba Landis Calcium [Mass/Vol] 8.9 mg/dL Normal 8.4-10.2 [facility] Comment on above: Performed By: #### H JEZ, CMP #### [facility] [address] [address] [address] Reba Landis Chloride [Moles/Vol] 99 mmol/L Normal 98-[address] [facility] Comment on above: Performed By: #### H EDNAPN, CMP #### [facility] [address] [address] [address] Reba Landis CO2 [Moles/Vol] 28.9 mmol/L Normal 22.0-30.0 [facility] Comment on above: Performed By: #### H EDNAPN, CMP #### [facility] [address] [address] [address] Reba Landis Creatinine [Mass/Vol] 1.17 mg/dL Normal 0.66-1.25 [facility] Comment on above: Performed By: #### H EDNAPN, CMP #### [facility] [address] [address] [address] Reba Landis EGFR-AF NIUEAN >60 Normal >=60 [facility] Comment on above: Performed By: #### H EDNAPN, CMP #### [facility] [address] [address] [address] Reba Landis EGFR-NON AF NIUEAN >60 Normal >=60 [facility] Comment on above: Performed By: #### H EDNAPN, CMP #### [facility] [address] [address] [address] Reba Landis Globulin (S) [Mass/Vol] 4.3 g/dL Normal [facility] Comment on above: Performed By: #### H EDNAPN, CMP #### [facility] [address] [address] [address] Reba Landis Glucose [Mass/Vol] 205 mg/dL Critically high 74-106 T [facility] Comment on above: Performed By: #### H STROPN, CMP #### [facility] [address] [address] [address] Reba Landis Potassium [Moles/Vol] 3.9 mmol/L Normal 3.4-5.0 [facility] Comment on above: Performed By: #### H STROPN, CMP #### [facility] [address] [place] [address] Dr. Reba Landis Protein [Mass/Vol] 8.1 g/dL Normal 6.1-8.2 [facility] Comment on above: Performed By: #### H JEZ, CMP #### [facility] [address] [place] [address] Dr. Reba Lnadis Sodium [Moles/Vol] 135 mmol/L Critically low 137-145 [facility] Comment on above: Performed By: #### H JEZ, CMP #### [facility] [address] [place] [address] Dr. Reba Landis Urea nitrogen [Mass/Vol] 7.0 mg/dL Critically low 9.0-20.0 [facility] Comment on above: Performed By: #### H JEZ, CMP #### [facility] [address] [place] [address] Dr. Reba Landis Urea nitrogen/Creatinin e [Mass ratio] 6.0 mg/mg Normal [facility] Comment on above: Performed By: #### H JEZ, CMP #### [facility] [address] [place] [address] Dr. Reba Landis PROTIMEon 04-15-2021 INR Coag (PPP) [Relative time] 0.96 {INR} Normal [facility] Comment on above: Performed By: #### C BC #### [facility] [address] [place] [address] Dr. Reba Landis INR GUIDELINES SEE BELOW Normal [facility] Comment on above: Result Comment: ROM RED INR: 2.0 - 3.0 CONDITIONS NOT LISTED BELOW 2.5 - 3.5 FOR PROSTHETIC HEART VALVE REPLACEMENT 2.5 - 3.5 RECURRENT THROMBOSIS Performed By: #### C BC #### [facility] [address] [place] [address] Dr. Reba Landis PT Coag (PPP) [Time] 10.4 s Normal 9.0-11.6 [facility] Comment on above: Performed By: #### C BC #### [facility] [address] [place] [address] Dr. Reba Landis PTTon 04-15-2021 aPTT Coag (Bld) [Time] 36.6 s Critically high 22.3-36.[address] [facility] Comment on above: Performed By: #### C BC #### [facility] [address] [address] [address] Reba Landis TROPONIN, HIGH SENSITIVITYon 04-15-2021 HSTROP 6.2 pg/mL Normal 4.0-42.[address] [facility] Comment on above: Result Comment: CUT- OFF POINTS HAVE BEEN ESTABLISHED BASED ON THE FOURTH UNIVERSAL DEFINITIONS OF MYOCARDIAL INFARCTION. THE UPPER REFERENCE LIMIT (URL) OF TROPONIN, DEFINED THE 99TH PERCENTILE OF cTnI DISTRIBUTION IN A REFERENCE POPULATION, HAS BEEN CONFIRMED THE DECISION THRESHOLD FOR [place] DIAGNOSIS. Performed By: #### H STROPN, CMP #### [facility] [address] [address] [address] Reba Landis History and Physical - [...] Updated: 13-Mar-2020 07:58 by Stevenson Art () Normal [facility] Patient Profile - Preop v2on 03-13-2020 Patient Profile - Preop v2 Profile: Initial Info: How to be AddressedJOSH Spoken Language PreferredEnglish Source of Informationpatient Are you currently using the Personal Electronic Health Record or Talknote Stated Reason for 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 Primary Contact Name and [phone] Limitations on Visitors/Phone Callsnone Patient Belongingsremains with patient Patient Belongings Remaining with Patientclothing; GLASSES, CELL, WALLET Medications Brought to Hospitalno General Health: Weight in kg115.9 kilogram(s) Weight in pww523.5 pound(s) Weight Methodstated Height in feet5 feet [...] Withdependent child(rasheeda); spouse Resource/Environmental Concernsnone [facility] Anticipated at Transitionnone Substance: [...] instruction; individual instruction Cultural Considerationsnone Developmental Considerationsnone Muslim Considerationsnone Other learner availableno [place] RiskPatient location auto qualifies him/her for HIGH RISK. Are there any cultural, spiritual, holiness practices/values/needs that are important for us to knowno Do you want a visit/item from [facility] Would you like your Instantizer Operator/Agricultural Economist notifiedno Pain Scalenumerical 0-10 Pain Scale Educationteaching provided Current Pain Level0 = None Acceptable Pain Level4 = Moderate Lifestyle Changes/Adaptations in Response to Painno change Chronic Painno Information Review: Allergies, Home Meds and Significant Events have been Reviewed and Verified with Patient/Familyyes Allergy, Intolerance, Adverse Event: Allergies: No Known Allergies: Active Electronic Signatures: Lyudmila Marcos) (Signed 13-Mar-2020 07:31) Authored: Initial Info, General Health, Health Mgmt, Relationship/Environ, Substance, Risk Screens, Additional Information Last Updated: 13-Mar-2020 07:31 by Lyudmila Marcos) [facility] Preop Checkliston 03-13-2020 Preop Checklist Preop Checklist: Preop Checklist: Arrival [id number] Arrival Time00:16 Procedure TypeRIGHT TRIGGER FINGER RELEASE INDEX FINGER AND MASS EXCISION Temperature C36.9 degrees C Temperature F98.4 degrees F Heart Rate85 beats per minute Respiratory Rate18 breath per minute Blood Pressure Khfxtcav141 mm/Hg Blood Pressure Ljualcbiv84 mm/Hg NPO [id number] 21:00 ID Band Onyes Allergy Bandno known [...] Communication: Language / CommunicationEnglish Electronic Signatures: Lyudmila Marcos) (Signed 13-Mar-2020 07:33) Authored: Preop Checklist Last Updated: 13-Mar-2020 07:33 by Lyudmila Marcos) Normal [facility] Surgical Specimenon 10-04-19 20 Surgical Specimen [facility] [address] [place] [address] FINAL SURGICAL PATHOLOGY REPORT Patient Name: CHIP HURTADO Accession No: [id number] Age Sex: 1980 Location: [facility] [place] Account No: [id number] Collected: 10/04/2019 Med Rec No: [id number] Received: 10/04/2019 Attend Phys: STEVENSON ART DO Completed: 10/05/2019 Perform Phys: STEVENSON ART DO FINAL DIAGNOSIS: LEFT PALMAR MASS- MULTILOCULATED GANGLION CYST. ALIFA/ALICHARLIE CLINICAL INFORMATION: Left palmar mass, complex cyst. SPECIMEN: Left Pool Mass GROSS DESCRIPTION: The specimen is received in formalin in a container labeled Chip Hurtado and designated as hand . The specimen consists of a pinkish-santoyo soft tissue fragment measuring 2.0 x 1.8 x 0.2 cm. The specimen is submitted in toto in cassette A1. ALICHARLIE/LANDEN CPT: 46901 X1 TESHA TANG M.D. 10/05/2019 Electronically signed out by Page 1 of 1 [facility] Comment on above: Performed By: #### S UR #### [place] [id number] COVID-19, NAAon 10-01-2019 COVID-19, RADHA Not Detected Normal Not Detect [facility] Comment on above: Result Comment: This test was developed and its performance characteristics determined by [facility]. This test has not been FDA cleared [...] is terminated or revoked sooner. Performed at: [facility] [address] [facility], [place] [id number] Float Remover: Violeta Herrmann MD, Phone: [id number] Performed By: #### I RCOV #### [facility] [address] [place] [address] COVID-19, NAAon 09-29-2019 Source Swab OP swab Normal [facility] Comment on above: Performed By: #### I RCOV #### [facility] [address] [place] [address] Established Visit (Orthopaed ic Surgery)on 09-26-2019 Established [...] find it still to be irritating with patient centered care specialist. Occasionally, he has median nerve symptoms associated with patient centered care specialist. He will forcefully patient centered care specialist an object and has a zinger that goes down into the index, long and thumb. He denies associated constitutional symptoms. He still has the painful right hand mass as well localized to the level of the A1 jennie to the index. This is bad with forceful patient centered care specialist as well. Active Problems Hand pain (729.5) [...] have the procedure done. 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 I will see him for ongoing followup status post surgery. Signatures Electronically signed by : Darlyn Resendiz, ; Sep 25 2019 12:18PM EST (Drum Attendant/Recorder ) Electronically signed by : Stevenson Art DO; Sep 26 2019 3:29PM EST [facility] W/O-W CONTRASTon MRI HAND W/O-W CONTRAST Patient Name: CHIP HURTADO STUDY: MRI HAND W/O-W CONTRAST; 08/31/2019 10:27 am INDICATION: pain. Palmar mass and pain. Gradual increase in size over the with 2 months. COMPARISON: None. ACCESSION NUMBER(S): [id number] ORDERING CLINICIAN: STEVENSON ART TECHNIQUE: Multiplanar and [...] abnormality. 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 He describes a painful cyst about the palmar aspect of his left hand located just ulnar to the thenar flexion crease and just distal to the transverse carpal ligament. He states that this has gradually enlarged over the last nnnyq-afs-u-half or so. 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 Active Problems Hand [...] Recorded: 15Aug2019 10:31AM Height5 ft 11 in Bvcrww595 lb BMI Wlmybtezun76.17 BSA Calculated2.3 Physical Exam GENERAL: Alert and [...] A1 jennie. Results/Data Xray Hand Min 3 [id number] 09:07AMStevenson Art [Aug 15, 2019 9:04AM Stevenson Art] Reason: Unspecified for Xray Hand Min 3 View [Aug 15, 2019 9:04AM Stevenson Art] Reason: Unspecified for Xray Hand Min 3 View Test NameResultFlagReference Xray Hand Min 3 View(Report) Interpreted by: STEVENSON ART 08/15/19 18:23 Patient Name: CHIP HURTADO STUDY: HAND MIN 3 VIEWS; Right; 08/15/2019 9:07 am INDICATION: pain. ACCESSION NUMBER(S): [id number] ORDERING CLINICIAN: STEVENSON ART FINDINGS: Three views of the right hand show no acute fracture or dislocation. Electronically signed by: STEVENSON ART 08/15/19 18:23 Xray Hand Min 3 [id number] 09:07Stevenson [place] Test NameResultFlagReference Xray Hand Min 3 View(Report) Interpreted by: STEVENSON ART 08/15/19 18:23 Patient Name: CHIP HURTADO STUDY: HAND MIN 3 VIEWS; Left; 08/15/2019 9:07 am INDICATION: pain. ACCESSION NUMBER(S): [id number] ORDERING CLINICIAN: STEVENSON ART FINDINGS: Three views [...] Requires Verification,Retrospective Authorization; Done: 15Aug2019 09:07AM Performed:ELSHEF; Due:[id number];Ordered; For:Hand pain; Ordered By:Stevenson Art; Reason: Unspecified for Xray Hand Min 3 View Reason: Unspecified for Xray Hand Min 3 View Laterality : Right Radiologist to Determine Optimal Study : Y What are the patient's signs and symptoms? : pain Xray Hand Min 3 View; Status:Resulted - Requires Verification,Retrospective Authorization; Done: 15Aug2019 09:07AM Performed:ELSHEF; Due:[id number];Ordered; For:Hand pain; Ordered By:Stevenson Art; Laterality : Left Radiologist to Determine Optimal Study : Y What are the patient's signs and symptoms? : pain Mass of left hand MRI Hand w/wo Contrast; Status:Hold For - Scheduling,Retrospective Authorization; Requested for:15Aug2019; Perform:[facility]; Order Comments:MRI LEFT [...] Resendiz, ; Aug 16 2019 2:55PM EST (Drum Attendant/Recorder ) Electronically signed by : Stevenson Art DO; Aug 19 2019 7:44AM EST Normal [facility] HAND MIN 3 VIEWSon 0 HAND MIN 3 VIEWS Patient Name: CHIP HURTADO STUDY: HAND MIN 3 VIEWS; Right; 08/15/2019 9:07 am INDICATION: pain. ACCESSION NUMBER(S): [id number] ORDERING CLINICIAN: STEVENSON ART FINDINGS: Three views of the right hand show no acute fracture or dislocation. Electronically signed by: STEVENSON ART DO Normal [facility] HAND MIN 3 VIEWS Patient Name: CHIP HURTADO STUDY: HAND MIN 3 VIEWS; Left; 08/15/2019 9:07 am INDICATION: pain. ACCESSION NUMBER(S): [id number] ORDERING CLINICIAN: STEVENSON ART FINDINGS: Three views of the left hand show no acute fracture or dislocation. Electronically signed by: STEVENSON ART DO Normal [facility] Encounters Encounter Date Encounter Type Care Provider Facility Start: 10-10-2024 End: 10-10-2024 Patient encounter procedure Js Aguilera MD Work Phone: [facility] [address] Work Phone: Start: 10-10-2024 End: 10-10-2024 ambulatory Js Aguilera MD Work Phone: [facility] Work Phone: Start: 08-29-2024 End: 08-29-2024 Patient encounter procedure Js Aguilera MD Work Phone: [facility] [address] Work Phone: Start: 08-29-2024 End: 08-29-2024 ambulatory Js Aguilera MD Work Phone: [facility] Work Phone: Start: 08-15-2024 End: 08-15-2024 Patient encounter procedure Js Aguilera MD Work Phone: [facility] [address] Work Phone: Start: 08-15-2024 End: 08-15-2024 ambulatory Js Aguilera MD Work Phone: [facility] Work Phone: Start: 07-25-2024 End: 07-25-2024 Patient encounter procedure Js Aguilera MD Work Phone: [facility] [address] Work Phone: Start: 07-25-2024 End: 07-25-2024 ambulatory Js Aguilera MD Work Phone: [facility] Work Phone: Start: 07-13-2024 End: 07-13-2024 ambulatory Js Aguilera MD Work Phone: [facility] Work Phone: Start: 07-13-2024 End: 07-13-2024 Patient encounter procedure Js Aguilera MD Work Phone: [facility] [address] Work Phone: Start: 11-10-2021 End: 11-10-[address] JS AGUILERA Facility:[facility] Start: 04-17-2021 End: 04-22-2021 Evaluation and management of inpatient DR JS AGUILERA Facility:[facility] Start: 04-15-2021 End: 04-15-[address] JS AGUILERA Facility:[facility] Start: 10-04-2019 End: 10-04-2019 Patient encounter procedure STEVENSON ART [facility] Procedures Date Procedure Procedure Detail Performing Clinician Start: 10-04-2019 Level iv surg pathol ogy gross&microscopic exam STEVENSON ART Start: 10-04-2019 DISCHARGE PATIENT STEVENSON ART Start: 10-04-2019 Level iv surg pathol ogy gross&microscopic exam STEVENSON ART Payers Date Payer Category Payer Self-pay 2024 Unknown [id number] 1980 Unknown [id number] 2.16.8 [id number] 1980 Unknown [id number] 2.16.84 [id number] 1980 Unknown [id number] 2.16.84 [id number] 1980 Unknown [id number] 2.16.84 [id number] 1959 Unknown [id number] Unknown [facility] [id number] Unknown [id number] 2.16.8 [id number] Unknown [id number] 2.16.8 [id number] Unknown [id number] 2.16.8 [id number] Unknown [id number] 2.16.8 [id number] Unknown [id number] 2.16.8 [id number] Social History Date Type Detail Facility Tobacco smoking stat [facility] Unknown if ever smoked [facility] Work Phone: Start: 07-15-2024 End: 10-11-2024 Sex Male (finding) [facility] Start: 1980 Sex Assigned At Male F [facility] Evaluation note Note Date & Type Note Facility Evaluation note No assessment information availa ble [facility] Work Phone: Summary Purpose Family History No Family History Records FoundNo Family History Records FoundNo Family History Records FoundNo Family History Records FoundNo Family History Records FoundNo Family History Records FoundNo Family History Records Found Advance Directives No Advanced Directives Records Found Advance Directive Response Recorded Date/ Time Advance Directives No July 10:56am Advance Directive Response Recorded Date/ Time Advance Directives No July 11:56am Procedure Findings Note Post Operative Note: Post-Pr ocedure Diagnosis: Right index finger trigger digit with associated palmar mass at level of A1 jennie Procedure: 1. 2. 3. 4. 5. Surgeon: Stevenson Art DO Resident/Fellow/Other Associate Programmer Analyst: GINGER Peterson Estimated Blood Loss (mL): Less [...] Art D.O. Asst.: GINGER Muñiz The physician technical staff assistant was present to the entire case. Given the nature of the disease process and the procedure to be performe (more content not included)... Chief Complaint and Reason for Visit Chief Complaint Admit Date S80.01XA, S83.92XA July 13, 2024 8:45am Chief Complaint Admit Date S80.01XA, S83.92XA July 13, 2024 8:45am S80.01XA, S83.92XA July 25, 2024 12:50pm Chief Complaint Admit Date S80.01XA, S83.92XA July 13, 2024 8:45am S80.01XA, S83.92XA July 25, 2024 12:50pm S80.01XA, S83.92XA August 15, 2024 10: 45am Chief Complaint Admit Date S80.01XA, S83.92XA July 13, 2024 8:45am S80.01XA, S83.92XA July 25, 2024 12:50pm S80.01XA, S83.92XA August 15, 2024 10: 45am S80.01XA, S83.92XA August 29, 2024 10:2 4am Chief Complaint Admit Date S80.01XA, S83.92XA July 25, 2024 12:50pm S80.01XA, S83.92XA August 15, 2024 10: 45am S80.01XA, S83.92XA August 29, 2024 10:2 4am S80.01XA, S83.92XA October 10, 2024 10:47 am Additional Source Comments (unrecognized sect ion and content) No Status Records FoundNo Status Records FoundNo Status Records FoundNo Status Records FoundNo Status Records FoundNo Status Records FoundNo Status Records Found INFORMATION SOURCE (unrecogn ized section and content) DATE CREATED AUTHOR 09/26/2019 [facility] DATE CREATED AUTHOR AUTHOR'S ORGANIZ ATION 10/13/2019 [facility] [place] DATE CREATED AUTHOR AUTHOR'S ORGANIZ ATION [facility] [place] DATE CREATED AUTHOR AUTHOR'S ORGANIZ ATION [facility] DATE CREATED AUTHOR AUTHOR'S ORGANIZ ATION 05/23/2020 [facility] DATE CREATED AUTHOR AUTHOR'S ORGANIZ ATION 11/13/2021 [facility] DATE CREATED AUTHOR AUTHOR'S ORGANIZ ATION 10/18/[address] [facility] Care Teams (unrecognized sec tion and content) Team Status: Active Member Role Status Claudia Aguilera MD Primary Care Provider Active Team Status: Inactive Member Role Status Claudia Aguilera MD Primary Care Provider Active Start: July 13, 2024 End: July 13, 2024 Emanuel DANIELS DO [facility] Attending Provider Active Start: July 13, 2024 End: July 13, 2024 Team Status: Inactive Member Role Status Claudia Aguilera MD Primary Care Provider Active Start: July 25, 2024 End: July 25, 2024 DO JEREMIAH Padgett Attending Provider Active Start: July 25, 2024 End: July 25, 2024 Team Status: Inactive Member Role Status Claudia Augilera MD Primary Care Provider Active Start: August 15, 2024 End: August 15, 2024 DO JEREMIAH Padgett Attending Provider Active Start: August 15, 2024 End: August 15, 2024 Team Status: Inactive Member Role Status Claudia Aguilera MD Primary Care Provider Active Start: August 29, 2024 End: August 29, 2024 DO JEREMIAH Padgett Attending Provider Active Start: August 29, 2024 End: August 29, 2024 Team Status: Inactive Member Role Status Dates Js Aguilera MD Primary Care Provider Active Start: October 10, 2024 End: October 10, 2024 Emanuel DANIELS DO [facility] Attending Provider Active Start: October 10, 2024 End: October 10, 2024 Goals (unrecognized section and content) Goals may be documented in a n alternate sectionGoals may be documented in an alternate sectionGoals may be documented in an alternate sectionGoals may be documented in an alternate sectionGoals may be documented in an alternate section FOR RECORDS PERTAINING TO PATIENTS WHO ARE [...] BE BASED ON THE PRIMARY CLINICAL RECORDS. [employer] provides no warranty or guarantee of the accuracy or completeness of information in this document.
--- OUTSIDE RECORDS SUMMARY | 2025-01-10 07:12 | XMS_ITS | Clinical Summary ---
Author Organization [facility] Address [address], [address] [place] [address] Care Team Providers Care Tube Maker Name Role Phone Sherman Aguilera MD Primary Care Provider [phone] Allergies No known active allergies Medications lisinopril (PRINIVIL;ZESTRIL) 10 MG tablet 09/20/2019 Active Social History Tobacco Use Types Packs/Day Years Used Date Smoking Tobacco: Never Smokeless Tobacco: Never Alcohol Use Standard Drinks/Week Comments Not Asked 0 (1 standard drink = 0.6 oz pur e alcohol) not really Sex and Gender Information Value Date Recorded Sex Assigned at Not on file Legal Sex Male 11:39 AM EDT Gender Identity Not on file Sexual Orientation Not on file Last Filed Vital Signs Vital Sign Reading Time Taken Comments Blood Pressure 142/94 10/04/2019 10:55 AM EDT Pulse 70 10/04/2019 10:55 AM EDT Temperature 36.3 C (97.4 F) 10/04/2019 10:30 AM EDT Respiratory Rate 16 10/04/2019 10:55 AM EDT Oxygen Saturation 94% 10/04/2019 10:55 AM EDT Inhaled Oxygen Concentration - - Weight 115.7 kg (255 lb) 10/04/2019 6:45 AM EDT Height 180.3 cm (5' 11 ) 10/04/2019 6:45 AM EDT Body Mass Index 35.57 10/04/2019 6:45 AM EDT Plan of Treatment Not on file Insurance [employer] Care Teams Tube Maker Relationship Specialty Start Date End Date Sherman Aguilera MD [address] [place] [address] PCP - General Family Medicine 09/26/19
--- NOTE | 2025-01-10 07:30 | CA_ITS ---
Patient Name: GALINDO HURTADO MR#: [id number] : 1980 Exam Date: 01/10/2025 Ordering Doctor: DR SJ TAY . ECHOCARDIOGRAM REPORT PROCEDURE: CA ECHO DOPPLER COMPLETE INDICATIONS: TIA (transient ischemic attack), hypertension COMPARISON: None. DESCRIPTION: COMPLETE ECHOCARDIOGRAM Real-time transthoracic echocardiography with 2D, M-mode, spectral and color flow Doppler performed. QUALITY: Technical quality was good. LEFT VENTRICLE: Normal chamber size. Normal left ventricular wall thickness. Systolic function is normal. LV EF: Normal left ventricular ejection fraction, (>55%). DIASTOLIC: Normal diastolic function. ATRIAL SEPTUM: Visually appears intact. LEFT ATRIUM: Normal chamber size. RIGHT ATRIUM: Normal chamber size. RIGHT VENTRICLE: Normal chamber size. Normal right ventricular systolic function. TRICUSPID VALVE: Normal mobility and thickness. No stenosis with trivial regurgitation. No evidence of pulmonary hypertension. RVSP 32 mmHg MITRAL VALVE: Normal mobility and thickness. No evidence of mitral valve stenosis. There is no mitral annular calcification. Trivial mitral regurgitation. AORTIC VALVE: Normal trileaflet appearance. No visible sclerosis. Normal leaflet mobility. No evidence of aortic valve stenosis. No aortic regurgitation. AORTIC ROOT: Normal diameter and appearance, measuring 3.9 cm. Ascending aorta is normal in size, measuring 3.2 cm. PULMONIC VALVE: Normal thickness and mobility. No stenosis. Trivial regurgitation. PERICARDIUM: No evidence of pericardial effusion. IVC: Not well visualized. PLEURA: CONCLUSION: 1. Normal ventricular size and systolic function. Estimated LVEF is 55-60%. 2. Normal diastolic function. 3. No significant valvular dysfunction. 4. Normal right-sided pressures. Adult Echocardiography Procedure Report Left Ventricle LVEDD (3.7 - 5.6 cm): 4.96 cm LVESD (2.2 - 4.0 cm): 3.52 cm LVIVS thickness (0.6 - 1.2 cm): 0.93 cm LVPW thickness (0.5 - 1.0 cm): 0.96 cm e': 0.11 m/s E - e': 9.02 LVOT Max Gradient: 2.68 mm[Hg] LVOT Area (cm2): 0.82 m/s Peak Velocity (LVOT): 0.82 m/s Mean Velocity (LVOT): 0.57 m/s LVOT Diameter 2.50 cm Left Ventricular Ejection Fraction: 55-60 % Left Atrium LA Volume Index (2D A2C): 23.84 ml/m2 Left Atrium Systolic Dimension: 4.22 cm Mitral Valve MV E to A Ratio: 1.23 Mitral Valve A-Wave Peak Velocity: 0.79 m/s Mitral Valve E-Wave Peak Velocity: 0.97 m/s Right Ventricle Aorta AO Root Diam: 3.92 cm Ascending Ao Diam: 3.17 cm Aortic Valve AoV Area (Peak Arsen): 3.21 cm2, 3.21 cm2 AoV Area (VTI): 3.02 cm2, 3.02 cm2 Peak Velocity(Antegrade Flow): 1.26 m/s Peak Gradient(Antegrade Flow): 6.32 mm[Hg] Mean Velocity(Antegrade Flow): 0.82 m/s Mean Gradient(Antegrade Flow): 3.15 mm[Hg] Velocity Time Integral: 30.93 cm Tricuspid Valve Peak Velocity (Regurgitant Flow): 2.70 m/s, 2.67 m/s Pulmonic Valve Peak Gradient: 2.93 mm[Hg], 3.04 mm[Hg] Right Atrium Right Atrium Systolic Pressure: 101.25 ml, 101.25 ml Dictated by: Oj Larose M.D. on 01/12/2025 at 21:16 Approved by: Oj Larose M.D. on 01/12/2025 at 21:20
== END 2025-01-10 07:10 | disposition home or self-care (01) ==
LOC: CARD 07:09
PROVIDERS: PCP Family Medicine; Visit Provider Family Medicine
DX: G45.9 Transient cerebral ischemic attack, unspecified (principal)
CPT/HCPCS: 93306; 93880

== ENCOUNTER 2025-02-12 07:24 | Outpatient (OUT) | payer OTHER, SELFPAY ==
--- OUTSIDE RECORDS SUMMARY | 2025-02-12 07:25 | XMS_ITS | Clinical Summary ---
Author Organization [facility] Address [address] [place] [address] Phone Care Team Providers Care Senior Reactor Operator Name Role Phone Sherman Aguilera MD Primary Care Provider [phone] Social History Tobacco Use Types Packs/Day Years [...] of Treatment Not on file Care Teams Senior Reactor Operator Relationship Specialty Start Date End Date Sherman Aguilera MD [address] [place], [place] [id number] [phone] PCP - General 08/15/19
--- OUTSIDE RECORDS SUMMARY | 2025-02-12 07:26 | XMS_ITS | Patient Health Record ---
Author Organization [facility] in [place] Address [address] [place] [address] Care Team Providers Care Health Navigator Name Role Phone Felton Tay Primary Care Provider [phone] Allergies No Known Allergies Results Component Value Reference Range Notes XR KNEE RT 3V Reviewed date:04/09/2024 05:35:04 PM Interpretation: Performing Lab: Notes/Report: Source Facility: [place] [address] XRay Report Signed Patient: CHIP SADLER MR#: [id number] : 1980 Acct:[id number] Age/Sex: 44 / M ADM Date: 04/08/24 Loc: ER Attending Dr: Ordering Physician: Lena Dalton Date of Service: 04/08/24 Procedure(s): XR knee RT 3V Accession Number(s): [id number] cc: Js Tay M.D.; Lena Dalton [place] [id number] Patient Name: CHIP SADLER MRN: [id number] date: 1980 Sex: M Assigned Patient Location: ER Current Patient Location: Accession/Order Number: [id number] Exam Date: 04/08/2024 16:10 Report Date: 04/08/2024 16:54 At the request of: LENA DALTON Procedure: XR knee RT 3V EXAM: XR [...] M.D. Signed By: 04/08/241656 DD/ 53 TD/TT: Skull Chopper: JAMES echo doppler complete Reviewed date:01/14/2025 01:43:46 PM Interpretation: Performing Lab: Notes/Report: Source Facility: [place] [address] Cardiology Report Signed Patient: CHIP SADLER MR#: [id number] : 1980 Acct:[id number] Age/Sex: 44 / M ADM Date: 01/10/25 Loc: CARD Attending Dr: Js Tay M.D. Ordering Physician: Js Tay M.D. Date of Service: 01/10/25 Procedure(s): CA echo doppler complete Accession Number(s): [id number] cc: Js Tay M.D. Patient Name: CHIP SADLER MR#: [id number] : 1980 Exam Date: 01/10/2025 Ordering Doctor: DR JS TAY . ECHOCARDIOGRAM REPORT PROCEDURE: CA ECHO DOPPLER COMPLETE INDICATIONS: TIA (transient ischemic attack), hypertension COMPARISON: None. DESCRIPTION: COMPLETE ECHOCARDIOGRAM Real-time transthoracic echocardiography with 2D, M-mode, spectral and color flow Doppler performed. QUALITY: Technical quality was good. LEFT VENTRICLE: Normal chamber size. Normal left ventricular wall thickness. Systolic function is normal. LV EF: Normal left ventricular ejection fraction, (>55%). DIASTOLIC: Normal diastolic function. ATRIAL SEPTUM: Visually appears intact. LEFT ATRIUM: Normal chamber size. RIGHT ATRIUM: Normal chamber size. RIGHT VENTRICLE: Normal chamber size. Normal right ventricular systolic function. TRICUSPID VALVE: Normal mobility and thickness. No stenosis with trivial regurgitation. No evidence of pulmonary hypertension. RVSP 32 mmHg MITRAL VALVE: Normal mobility and thickness. No evidence of mitral valve stenosis. There is no mitral annular calcification. Trivial mitral regurgitation. AORTIC VALVE: Normal trileaflet appearance. No visible sclerosis. Normal leaflet mobility. No evidence of aortic valve stenosis. No aortic regurgitation. AORTIC ROOT: Normal diameter and appearance, measuring 3.9 cm. Ascending aorta is normal in size, measuring 3.2 cm. PULMONIC VALVE: Normal thickness and mobility. No stenosis. Trivial regurgitation. PERICARDIUM: No evidence of pericardial effusion. IVC: Not well visualized. PLEURA: CONCLUSION: 1. Normal ventricular size and systolic function. Estimated LVEF is 55-60%. 2. Normal diastolic function. 3. No significant valvular dysfunction. 4. Normal right-sided pressures. Adult Echocardiography Procedure Report Left Ventricle LVEDD (3.7 - 5.6 cm): 4.96 cm LVESD (2.2 - 4.0 cm): 3.52 cm LVIVS thickness (0.6 - 1.2 cm): 0.93 cm LVPW thickness (0.5 - 1.0 cm): 0.96 cm e': 0.11 m/s E - e': 9.02 LVOT Max Gradient: 2.68 mm[Hg] LVOT Area (cm2): 0.82 m/s Peak Velocity (LVOT): 0.82 m/s Mean Velocity (LVOT): 0.57 m/s LVOT Diameter 2.50 cm Left Ventricular Ejection Fraction: 55-60 % Left Atrium LA Volume Index (2D A2C): 23.84 ml/m2 Left Atrium Systolic Dimension: 4.22 cm Mitral Valve MV E to A Ratio: 1.23 Mitral Valve A-Wave Peak Velocity: 0.79 m/s Mitral Valve E-Wave Peak Velocity: 0.97 m/s Right Ventricle Aorta AO Root Diam: 3.92 cm Ascending Ao Diam: 3.17 cm Aortic Valve AoV Area (Peak Arsen): 3.21 cm2, 3.21 cm2 AoV Area (VTI): 3.02 cm2, 3.02 cm2 Peak Velocity(Antegrade Flow): 1.26 m/s Peak Gradient(Antegrade Flow): 6.32 mm[Hg] Mean Velocity(Antegrade Flow): 0.82 m/s Mean Gradient(Antegrade Flow): 3.15 mm[Hg] Velocity Time Integral: 30.93 cm Tricuspid Valve Peak Velocity (Regurgitant Flow): 2.70 m/s, 2.67 m/s Pulmonic Valve Peak Gradient: 2.93 mm[Hg], 3.04 mm[Hg] Right Atrium Right Atrium Systolic Pressure: 101.25 ml, 101.25 ml Dictated by: Bossman Larose M.D. on 01/12/2025 at 21:16 Approved by: Bossman Larose M.D. on 01/12/2025 at 21:20 Dictated By: BOSSMAN LAROSE Signed By: 01/12/252120 DD/ 19 TD/TT: Skull Chopper: XR KNEE RT 3V Reviewed date:07/10/2024 07:16:20 PM Interpretation: Performing Lab: Notes/Report: Source Facility: [place] [address] XRay Report Signed Patient: CHIP SADLER MR#: [id number] : 1980 Acct:[id number] Age/Sex: 44 / M ADM Date: 07/10/24 Loc: ER Attending Dr: Ordering Physician: Aislinn Leonard Date of Service: 07/10/24 Procedure(s): XR knee RT 3V Accession Number(s): [id number] cc: Js Tay M.D.; Aislinn Leonard [place] [address] Patient Name: CHIP SADLER MRN: [id number] date: 1980 Sex: M Assigned Patient Location: ER Current Patient Location: ER Accession/Order Number: [id number] Exam Date: 07/10/2024 11:00 Report Date: 07/10/2024 [...] Signed By: 07/10/24 1226 DD/ 1224 TD/TT: Skull Chopper: Reason For Referral No Information Medications Medication SIG (Take, Route, Frequency, Duration) Notes Start Date End Date Status amLODIPine Besylate 5 MG 1 tablet Orally Once a day; Duration: 30 days 07/20/2024 Active Metoprolol Tartrate 50 MG TAKE 1 TABLET BY MOUTH TWICE A DAY WITH FOOD Orally Twice a day; Duration: 30 days Active Lisinopril 40 MG TAKE 1 TABLET BY JAJA TH EVERY DAY Orally Once a day; Duration: 30 days Active Aspirin Low Dose 81 MG CHEW AND SWALLOW 1 TABLET BY MOUTH ONCE A DAY FOR 30 DAYS; Duration: 90 days Active Ciprofloxacin HCl 500 MG 1 tablet Orally every 12 hrs; Duration: 10 days 12/26/2024 Active Social History Tobacco [...] Status W/U Status Risk Notes Problem Hyperlipidemia (75848741) Hyperlipidemia (E78.5) Active confirmed Problem Hypertension (41331466) Hypertension (I10) Active confirmed Problem Transient ischemic attack (266512236) TIA (transient ischemic attack) (G45.9) Active confirmed Problem Benign prostatic hyperplasia (531777898) BPH (benign prostatic hyperplasia) (N40.0) Active confirmed Problem Acute sinusitis (92897135) Acute sinusitis (J01.90) Active confirmed Problem Well adult (252271257) Well adult (Z00.00) Active confirmed Problem Knee sprain (79698207) Knee sprain (S83.90XA) Active confirmed Vital Signs Blood pressure diastolic 82 mm Hg 12/26/2024 Height 72 in 12/26/2024 Blood pressure systolic 118 mm Hg 12/26/2024 Weight 250 lbs 12/26/2024 BMI 33.9 kg/m2 12/26/2024 Procedures Procedure Date Ordered Date Performed Result Body Sit e CARDIO Echocardiogram 12/26/2024 N/A VASC US CAROTID ARTERY DUPLEX BILATERAL 12/26/2024 N/A Encounters Encounter Location Date Provider Diagnosis [facility] [address] [place] [place] [address] 06/23/2024 Felton Tay [facility] [address] [facility] [address] 07/20/2024 Felton Tay Well adult Z00.00 [facility] [address] [place] [place] [address] 07/27/2024 Felton Tay [facility] [address] [place] [place] [address] 08/04/2024 Felton Tay [facility] [address] [place] [place] [address] 01/14/2025 Felton Tay [facility] [address] [facility] [place] [address] 01/15/2025 Felton Tay [facility] [address] [place] [place] [address] 01/15/2025 Felton Tay [facility] [address] [facility] [address] 01/19/2025 Felton Tay Epididymitis N45.1 [facility] [address] [place] [place] [address] 12/26/2024 Felton Tay TIA (transient ische gillian attack) G45.9 ; BPH (benign prostatic hyperplasia) N40.0 and Epididymitis N45.1 [facility] [address] [place] [place] [address] 07/20/2024 Felton Tay Hypertension I10 [facility] [address] [place] [place] [address] 07/27/2024 Felton Hoy Hypertension I10 [facility] [address] [place] [address] 08/04/2024 Felton Hoy Hypertension I10 [facility] [address] [place] [address] 04/12/2024 Felton Hoy Knee sprain S83.90XA [facility] [address] [place] [address] 04/21/2024 Felton Hoy Knee sprain S83.90XA [facility] [address] [place] [address] 07/12/2024 Felton Hoy Well adult Z00.00 Assessments [...] N40.0) 07/20/2024 Well adult (ICD-10 - Z00.00) 01/19/2025 Epididymitis (ICD-10 - N45.1) 12/26/2024 Epididymitis (ICD-10 - N45.1) Plan Of Treatment Pending Test Test Name Order Date CMP (COMPLETE METABOLIC PANEL) 3 HEMOGLOBIN A1C (GLYCO) 05/27/2023 LIPID PANEL (CHOL/TRIG/HDL/LDL) 05/27/20 23 CBC WITH DIFF 05/27/2023 PSA, PROSTATE-SPECIFIC ANTIGEN 3 CARDIO Echocardiogram 12/26/2024 COMPREHENSIVE METABOLIC PROFILE WITH GFR 12/13/2023 OCCULT BLOOD, FECAL, IMMUNOASSAY 024 CBC W/AUTO DIFF 12/13/2023 STOOL OCCULT BLOOD 05/27/2023 MRI BRAIN WO CON 12/26/2024 THYROID PANEL (T4/TSH/FREE T3) PSA, SCREENING 12/13/2023 Lipid Panel 12/13/2023 VASC CAROTID ARTERY DUPLEX BILATERAL 12/26/2024 Insurance Providers Payer Name Payer Address Payer Phone Subscriber Number Group Number Insured Name Patient Relationship to Insured Coverage Start Date Coverage End Date MMO [employer] P[employer] [address] [address] [place] [address] [phone] [id number] Chip Sadler Self - patient is the insured Medical (General) History Medical History History ICD Code Benign essential hypertension I10 Over weight E66.3 Irritable bowel K58.9 Surgical History Surgery Date(Month/Year) colonoscopy 2008 Hospitalization History Reason Date(Month/Year) sinus tachycrdia 03/2021
--- OUTSIDE RECORDS SUMMARY | 2025-02-12 07:26 | XMS_ITS | Clinical Summary ---
Author Organization [facility] Address [address], [address] [place] [address] Care Team Providers Care Pharmacist Technician Name Role Phone Sherman Aguilera MD Primary Care Provider [phone] Allergies No known active allergies Medications lisinopril [...] on file Insurance [employer] Care Teams Pharmacist Technician Relationship Specialty Start Date End Date Sherman Aguilera MD [address] [place] [address] PCP - General Family Medicine 09/26/19
--- OUTSIDE RECORDS SUMMARY | 2025-02-12 07:27 | XMS_ITS | CCD ---
Author Organization [facility] CliniSyde Care Team Providers Care Infrastructure Engineer Name Role Phone STEVENSON ART Admitting Unavailable STEVENSON ART Attending Unavailable STEVENSON ART Referring Unavailable JS AGUILERA Primary Care Unavailable JASVIR, DR WEINSTEIN Primary Care Unavailable JSAVIR, DR WENISTEIN Admitting Unavailable JASVIR, DR WEINSTEIN Attending Unavailable JASVIR, DR WEINSTEIN Consulting Unavailable TONY, DR GAL Lomax Consulting Unavailable HAY, DR STAFFORD Consulting Unavailable ALICE, PIETER SALCEDO Consulting Unavailable KONSTANTIN, CHRISTINE Consulting Unavailable JASVIR, DR WEINSTEIN Admitting Unavailable JASVIR, DR WEINSTEIN Attending Unavailable JASVIR, DR WEINSTIEN Primary Care Unavailable JASVIR, DR WEINSTEIN Consulting Unavailable JASVIR, DR WEINSTEIN Primary Care Unavailable ROSA, DR CHARLES Austin Admitting Unavailabl e ROSA, DR CHARLES Austin Attending Unavailabl e ANDRES, DR ASHELY Magallanes Consulting Unavailable GINGER DALTON Consulting Unavailable Js Aguilera MD Primary Care Provider [phone] [facility] Emanuel OLIVAS Attending Provider Js Aguilera MD Primary Care Provider [phone] [facility] Emanuel OLIVAS Attending Provider Js Aguilera MD Primary Care Provider [phone] [facility] Emanuel OLIVAS Attending Provider Lpóez - Emanuel DANIELS Attending Unavailable Lópezs - Emanuel DANIELS Admitting Unavailable Js Aguilera Primary Care Unavailable Kuns Emanuel DANIELS Attending Unavailable [facility] Js [facility]ilera [facility]ending Unavailable Js Aguilera [facility]ending Unavailable Js Aguilera [facility] Unavailable Annelise Emanuel DANIELS Attending Unavailable [facility] Admitting Unavailable Js Aguilera Primary Care Unavailable [...] 04-17-2021 Episodic Other aftercare (1 source) Other shelter (current) drug therapy; 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 When there are no FDA-approved or cleared tests available, and other criteria are met, FDA can make tests available under an emergency access mechanism called an Emergency Use Authorization (EUA). The EUA for this test is supported by the Client Services Associate of Health and Human Service's (HHS's) declaration [...] consistent with SARS-CoV-2. Performed By: #### [facility] #### [facility] [address] [place] [address] Dr. Reba Landis CBC W MANUAL DIFFon 04-22-20 21 ATYPICAL LYMPH # Normal [facility] Comment on above: Performed By: #### H STROPN, CMP #### [facility] [address] [place] [address] Dr. Reba Landis ATYPICAL LYMPH % Normal [facility] Comment on above: Performed By: #### H STROPN, CMP #### [facility] [address] [address] [address] Reba Landis BAND # Normal 0.0-0.3 [facility] Comment on above: Performed By: #### H STROPN, CMP #### [facility] [address] [place] [address] Dr. Reba Landis BAND % Normal 0-5 [facility] Comment on above: Performed By: #### H STROPN, CMP #### [facility] [address] [place] [address] Dr. Reba Landis BASOM # 0.00 103/ul Normal 0.00-0.10 [facility] Comment on above: Performed By: #### H STROPN, CMP #### [facility] [address] [place] [address] Dr. Reba Landis BASOM % 0.0 % Critically low 0.2-2.0 [facility] Comment on above: Performed By: #### H STROPN, CMP #### [facility] [address] [place] [address] Dr. Reba Landis BLAST # Normal [facility] Comment on above: Performed By: #### H STROPN, CMP #### [facility] [address] [place] [address] Dr. Reba Landis BLAST % Normal [facility] Comment on above: Performed By: #### H STROPN, CMP #### [facility] [address] [place] [address] Dr. Reba Landis CORRECTED WBC Normal 4.0-11.0 [facility] Comment on above: Performed By: #### H STROPN, CMP #### [facility] [address] [place] [address] Dr. Reba Landis EOS # 0.00 103/ul Normal 0.00-0.70 [facility] Comment on above: Performed By: #### H STROPN, CMP #### [facility] [address] [address] [address] Reba Landis EOS% 0.0 % Critically low 0.9-7.0 [facility] Comment on above: Performed By: #### H STROPN, CMP #### [facility] [address] [address] [address] Reba Landis HCT 42.4 % Normal 42.0-54.0 [facility] Comment on above: Performed By: #### H STROPN, CMP #### [facility] [address] [address] [address] Reba Landis HGB 14.2 g/dl Normal 14.0-18.0 [facility] Comment on above: Performed By: #### H STROPN, CMP #### [facility] [address] [place] [address] Dr. Reba Landis LYMPHM # 0.41 103/ul Critically low 1.20-3.80 [facility] Comment on above: Performed By: #### H STROPN, CMP #### [facility] [address] [place] [address] Dr. Reba Landis LYMPHM% 3.0 % Critically low 20.5-60.0 [facility] Comment on above: Performed By: #### H STROPN, CMP #### [facility] [address] [place] [address] Dr. Reba Landis MCH 28.9 pg Normal 25.9-34.0 [facility] Comment on above: Performed By: #### H STROPN, CMP #### [facility] [address] [place] [address] Dr. Reba Ladnis MCHC 33.5 g/dl Normal 29.9-35.2 [facility] Comment on above: Performed By: #### H STROPN, CMP #### [facility] [address] [place] [address] Dr. Reba Landis MCV 86.4 fL Normal 80.0-94.0 [facility] Comment on above: Performed By: #### H STROPN, CMP #### [facility] [address] [place] [address] Dr. Reba Landis METAMYELOCYTE # Normal [facility] Comment on above: Performed By: #### H STROPN, CMP #### [facility] [address] [place] [address] Dr. Reba Landis METAMYELOCYTE % Normal [facility] Comment on above: Performed By: #### H STROPN, CMP #### [facility] [address] [place] [address] Dr. Reba Landis MONOM# 1.10 103/ul Critically high 0.30-0.80 [facility] Comment on above: Performed By: #### H STROPN, CMP #### [facility] [address] [place] [address] Dr. Reba Landis MONOM% 8.0 % Normal 1.7-12.0 [facility] Comment on above: Performed By: #### H STROPN, CMP #### [facility] [address] [place] [address] Dr. Reba Landis MPV 10.1 fL Normal 9.5-13.5 [facility] Comment on above: Performed By: #### H STROPN, CMP #### [facility] [address] [place] [address] Dr. Reba Landis MYELOCYTE # Normal [facility] Comment on above: Performed By: #### H STROPN, CMP #### [facility] [address] [place] [address] Dr. Reba Landis MYELOCYTE % Normal [facility] Comment on above: Performed By: #### H STROPN, CMP #### [facility] [address] [place] [address] Dr. Reba Landis NRBC Normal [facility] Comment on above: Performed By: #### H STROPN, CMP #### [facility] [address] [place] [address] Dr. Reba Landis PLT 312 103/ul Normal 150-450 [facility] Comment on above: Performed By: #### H STROPN, CMP #### [facility] [address] [place], [place] [address] Dr. Reba Landis RBC 4.91 106/ul Normal 4.70-6.10 [facility] Comment on above: Performed By: #### H STROPN, CMP #### [facility] [id number] [address] Reba Landis RDW 11.9 % Normal 11.0-15.0 [facility] Comment on above: Performed By: #### H STROPN, CMP #### [facility] [address] [address] [address] Reba Landis SEG # 12.19 103/ul Critically high 1.40-6.50 [facility] Comment on above: Performed By: #### H STROPN, CMP #### [facility] [id number] Reba Landis SEG % 89.0 % Critically high 43.0-75.0 [facility] Comment on above: Performed By: #### H STROPN, CMP #### [facility] [id number] Reba Landis WBC 13.7 103/ul Critically high 4.0-11.0 [facility] Comment on above: Performed By: #### H STROPN, CMP #### [facility] [id number] Reba Landis CRPon 04-22-2021 CRP 0.8 mg/dL Normal <=1.0 [facility] Comment on above: Performed By: #### H STROPN, CMP #### [facility] [id number] Reba Landis PROF 14(COMP METB)on 021 Albumin [Mass/Vol] 2.5 g/dL Critically low 3.5-5.0 [facility] Comment on above: Performed By: #### H STROPN, CMP #### [facility] [address] [address] [address] Reba Landis Albumin/Globulin [Mass ratio] 0.7 {ratio} Normal [facility] Comment on above: Performed By: #### H JEZ, CMP #### [facility] [address] [address] [address] Reba Landis ALP [Catalytic activity/Vol] 62 U/L Normal 38-126 [facility] Comment on above: Performed By: #### H EDNAPN, CMP #### [facility] [address] [address] [address] Reba Landis ALT [Catalytic activity/Vol] 35 U/L Normal 21-72 [facility] Comment on above: Performed By: #### H JEZ, CMP #### [facility] [address] [address] [address] Reba Landis Anion gap [Moles/Vol] 14.0 mmol/L Normal [facility] Comment on above: Performed By: #### H JEZ, CMP #### [facility] [address] [place] [address] Dr. Reba Landis AST [Catalytic activity/Vol] 13 U/L Critically low 17-59 [facility] Comment on above: Performed By: #### H JEZ, CMP #### [facility] [address] [place] [address] Dr. Reba Landis Bilirubin [Mass/Vol] 0.4 mg/dL Normal 0.2-1.3 [facility] Comment on above: Performed By: #### H JEZ, CMP #### [facility] [address] [place] [address] Dr. Reba Landis Calcium [Mass/Vol] 8.5 mg/dL Normal 8.4-10.2 [facility] Comment on above: Performed By: #### H EDNAPN, CMP #### [facility] [address] [place] [address] Dr. Reba Landis Chloride [Moles/Vol] 103 mmol/L Normal 98-107 [facility] Comment on above: Performed By: #### H EDNAPN, CMP #### [facility] [address] [place], [place] [id number] Dr. Reba Landis CO2 [Moles/Vol] 24.8 mmol/L Normal 22.0-30.0 [facility] Comment on above: Performed By: #### H EDNAPN, CMP #### [facility] [address] [address] [address] Reba Landis Creatinine [Mass/Vol] 0.93 mg/dL Normal 0.66-1.25 [facility] Comment on above: Performed By: #### H STROPN, CMP #### [facility] [address] [address] [address] Reba Landis EGFR-AF SOUTH AFRICAN >60 Normal >=60 [facility] Comment on above: Performed By: #### H EDNAPN, CMP #### [facility] [address] [place] [address] Dr. Reba Landis EGFR-NON AF SOUTH AFRICAN >60 Normal >=60 [facility] Comment on above: Performed By: #### H EDNAPN, CMP #### [facility] [address] [place] [address] Dr. Reba Landis Globulin (S) [Mass/Vol] 3.7 g/dL Normal [facility] Comment on above: Performed By: #### H EDNAPN, CMP #### [facility] [address] [place] [address] Dr. Reba Landis Glucose [Mass/Vol] 206 mg/dL Critically high 74-106 [facility] Comment on above: Performed By: #### H EDNAPN, CMP #### [facility] [address] [address] [address] Reba Landis Potassium [Moles/Vol] 4.8 mmol/L Normal 3.4-5.0 [facility] Comment on above: Performed By: #### H STROPN, CMP #### [facility] [address] [address] [address] Reba Landis Protein [Mass/Vol] 6.2 g/dL Normal 6.1-8.2 [facility] Comment on above: Performed By: #### H STROPN, CMP #### [facility] [address] [place] [address] Dr. Reba Landis Sodium [Moles/Vol] 137 mmol/L Normal 137-145 [facility] Comment on above: Performed By: #### H EDNAPN, CMP #### [facility] [address] [place] [address] Dr. Reba Landis Urea nitrogen [Mass/Vol] 19.0 mg/dL Normal 9.0-20.0 [facility] Comment on above: Performed By: #### H STROPN, CMP #### [facility] [address] [place] [address] Dr. Reba Landis Urea nitrogen/Creatinin e [Mass ratio] 20.4 mg/mg Normal [facility] Comment on above: Performed By: #### H EDNAPN, CMP #### [facility] [address] [place] [address] Dr. Reba Landis THEOPHYLLINEon 04-22-2021 THEOPHYLLINE 11.0 ug/mL Normal 8.0-20.0 [facility] Comment on above: Performed By: #### H STROPN, CMP #### [facility] [address] [place] [address] Dr. Reba Landis CBC AUTO DIFFon 04-21-2021 BASO # 0.0 103/ul Normal 0.0-0.1 [facility] Comment on above: Performed By: #### H STROPN, CMP #### [facility] [address] [place] [address] Dr. Reba Landis Basophils/100 WBC (Bld) 0.1 % Critically low 0.2-2.0 [facility] Comment on above: Performed By: #### H STROPN, CMP #### [facility] [address] [place] [address] Dr. Reba Landis EO # 0.0 103/ul Normal 0.0-0.7 [facility] Comment on above: Performed By: #### H STROPN, CMP #### [facility] [address] [place] [address] Dr. Reba Landis Eosinophils/100 WBC (Bld) 0.0 % Critically low 0.9-7.0 [facility] Comment on above: Performed By: #### H STROPN, CMP #### [facility] [address] [address] [address] Reba Landis Erythrocyte distribution width (RBC) [Ratio] 11.9 % Normal 11.0-15.0 [facility] Comment on above: Performed By: #### H STROPN, CMP #### [facility] [address] [address] [address] Reba Landis Hematocrit (Bld) [Volume fraction] 40.0 % Critically low 42.0-54.0 [facility] Comment on above: Performed By: #### H STROPN, CMP #### [facility] [address] [place] [address] Dr. Reba Landis Hemoglobin (Bld) [Mass/Vol] 13.3 g/dL Critically low 14.0-18.0 [facility] Comment on above: Performed By: #### H STROPN, CMP #### [facility] [address] [place] [address] Dr. Reba Landis IG # 0.12 10e3/ul Critically high 0.00-0.03 [facility] Comment on above: Performed By: #### H STROPN, CMP #### [facility] [address] [place] [address] Dr. Reba Landis IG % 1.1 % Critically high 0.0-0.5 [facility] Comment on above: Performed By: #### H STROPN, CMP #### [facility] [address] [place] [address] Dr. Reba Landis LYMPH # 0.7 103/ul Critically low 1.2-3.8 [facility] Comment on above: Performed By: #### H STROPN, CMP #### [facility] [address] [place] [address] Dr. Reba Landis Lymphocytes/100 WBC (Bld) 5.9 % Critically low 20.5-60.0 [facility] Comment on above: Performed By: #### H STROPN, CMP #### [facility] [address] [place] [address] Dr. Reba Landis MANUAL DIFF REQ NO Normal [facility] Comment on above: Performed By: #### H STROCALOS, CMP #### [facility] [address] [place] [address] Dr. Reba Landis MCH (RBC) [Entitic mass] 28.5 pg Normal 25.9-34.0 [facility] Comment on above: Performed By: #### H STROPN, CMP #### [facility] [address] [place] [address] Dr. Reba Landis MCHC (RBC) [Mass/Vol] 33.3 g/dL Normal 29.9-35.2 [facility] Comment on above: Performed By: #### H STROPN, CMP #### [facility] [address] [place] [address] Dr. Reba Landis MCV (RBC) [Entitic vol] 85.8 fL Normal 80.0-94.0 [facility] Comment on above: Performed By: #### H STROPN, CMP #### [facility] [address] [place] [address] Dr. Reba Landis MONO # 0.5 103/ul Normal 0.3-0.8 [facility] Comment on above: Performed By: #### H STROPN, CMP #### [facility] [address] [place] [address] Dr. Reba Landis Monocytes/100 WBC (Bld) 4.5 % Normal 1.7-12.0 [facility] Comment on above: Performed By: #### H STROPN, CMP #### [facility] [address] [place] [address] Dr. Reba Landis NEUT # 9.7 103/ul Critically high 1.4-6.5 [facility] Comment on above: Performed By: #### H STROPN, CMP #### [facility] [address] [place] [address] Dr. Reba Landis Neutrophils/100 WBC (Bld) 88.4 % Critically high 43.0-75.0 [facility] Comment on above: Performed By: #### H STROPN, CMP #### [facility] [address] [address] [address] Reba Landis Platelet mean volume (Bld) [Entitic vol] 10.7 fL Normal 9.5-13.5 [facility] Comment on above: Performed By: #### H STROPN, CMP #### [facility] [address] [address] [address] Reba Landis PLT 273 103/ul Normal 150-450 [facility] Comment on above: Performed By: #### H STROPN, CMP #### [facility] [address] [address] [address] Reba Landis RBC 4.66 106/ul Critically low 4.70-6.10 [facility] Comment on above: Performed By: #### H STROPN, CMP #### [facility] [address] [address] [address] Reba Landis WBC 10.9 103/ul Normal 4.0-11.0 [facility] Comment on above: Performed By: #### H STROPN, CMP #### [facility] [address] [address] [address] Reba Landis CRPon 04-21-2021 CRP 1.4 mg/dL Critically high <=1.0 [facility] Comment on above: Performed By: #### H STROPN, CMP #### [facility] [address] [address] [address] Reba Landis PROF 14(COMP METB)on 021 Albumin [Mass/Vol] 2.5 g/dL Critically low 3.5-5.0 [facility] Comment on above: Performed By: #### H STROPN, CMP #### [facility] [address] [address] [address] Reba Landis Albumin/Globulin [Mass ratio] 0.7 {ratio} Normal [facility] Comment on above: Performed By: #### H STROPN, CMP #### [facility] [address] [address] [address] Reba Landis ALP [Catalytic activity/Vol] 63 U/L Normal 38-126 [facility] Comment on above: Performed By: #### H STROPN, CMP #### [facility] [address] [address] [address] Reba Landis ALT [Catalytic activity/Vol] 40 U/L Normal 21-72 [facility] Comment on above: Performed By: #### H STROPN, CMP #### [facility] [address] [address] [address] Reba Landis Anion gap [Moles/Vol] 13.4 mmol/L Normal [facility] Comment on above: Performed By: #### H STROPN, CMP #### [facility] [address] [address] [address] Reba Landis AST [Catalytic activity/Vol] 15 U/L Critically low 17-59 [facility] Comment on above: Performed By: #### H STROPN, CMP #### [facility] [address] [address] [address] Reba Landis Bilirubin [Mass/Vol] 0.4 mg/dL Normal 0.2-1.3 [facility] Comment on above: Performed By: #### H STROPN, CMP #### [facility] [address] [address] [address] Reba Landis Calcium [Mass/Vol] 8.6 mg/dL Normal 8.4-10.2 [facility] Comment on above: Performed By: #### H STROPN, CMP #### [facility] [address] [address] [address] Reba Landis Chloride [Moles/Vol] 103 mmol/L Normal 98-107 [facility] Comment on above: Performed By: #### H STROPN, CMP #### [facility] [address] [address] [address] Reba Landis CO2 [Moles/Vol] 26.2 mmol/L Normal 22.0-30.0 [facility] Comment on above: Performed By: #### H STROPN, CMP #### [facility] [address] [address] [address] Reba Landis Creatinine [Mass/Vol] 0.88 mg/dL Normal 0.66-1.25 [facility] Comment on above: Performed By: #### H STROPN, CMP #### [facility] [address] [address] [address] Reba Landis EGFR-AF SOU[place] AFRICAN >60 Normal >=60 [facility] Comment on above: Performed By: #### H STROPN, CMP #### [facility] [address] [address] [address] Reba Landis EGFR-NON AF [place] >60 Normal >=60 [facility] Comment on above: Performed By: #### H STROPN, CMP #### [facility] [address] [address] [address] Reba Landis Globulin (S) [Mass/Vol] 3.5 g/dL Normal [facility] Comment on above: Performed By: #### H STROPN, CMP #### [facility] [address] [address] [address] Reba Landis Glucose [Mass/Vol] 202 mg/dL Critically high 74-106 [facility] Comment on above: Performed By: #### H STROPN, CMP #### [facility] [address] [address] [address] Reba Landis Potassium [Moles/Vol] 4.6 mmol/L Normal 3.4-5.0 [facility] Comment on above: Performed By: #### H STROPN, CMP #### [facility] [address] [address] [address] Reba Landis Protein [Mass/Vol] 6.0 g/dL Critically low 6.1-8.2 [facility] Comment on above: Performed By: #### H STROPN, CMP #### [facility] [address] [address] [address] Reba Landis Sodium [Moles/Vol] 138 mmol/L Normal 137-145 [facility] Comment on above: Performed By: #### H STROPN, CMP #### [facility] [address] [address] [address] Reba Landis Urea nitrogen [Mass/Vol] 16.0 mg/dL Normal 9.0-20.0 [facility] Comment on above: Performed By: #### H JEZ, CMP #### [facility] [address] [place] [address] Dr. Reba Landis Urea nitrogen/Creatinin e [Mass ratio] 18.2 mg/mg Normal [facility] Comment on above: Performed By: #### H JEZ, CMP #### [facility] [address] [place] [address] Dr. Reba Landis THEOPHYLLINEon 04-21-2021 THEOPHYLLINE 9.5 ug/mL Normal 8.0-20.0 [facility] Comment on above: Performed By: #### H JEZ, CMP #### [facility] [address] [place] [address] Dr. Reba Landis CBC AUTO DIFFon 04-20-2021 BASO # 0.0 103/ul Normal 0.0-0.1 [facility] Comment on above: Performed By: #### C BC #### [facility] [address] [place] [address] Dr. Reba Landis Basophils/100 WBC (Bld) 0.2 % Normal 0.2-2.0 [facility] Comment on above: Performed By: #### C BC #### [facility] [address] [place] [address] Dr. Reba Landis EO # 0.0 103/ul Normal 0.0-0.7 [facility] Comment on above: Performed By: #### C BC #### [facility] [address] [place] [address] Dr. Reba Landis Eosinophils/100 WBC (Bld) 0.0 % Critically low 0.9-7.0 [facility] Comment on above: Performed By: #### C BC #### [facility] [address] [place] [address] Dr. Reba Landis Erythrocyte distribution width (RBC) [Ratio] 12.0 % Normal 11.0-15.0 [facility] Comment on above: Performed By: #### C BC #### [facility] [address] [place] [address] Dr. Reba Landis Hematocrit (Bld) [Volume fraction] 43.3 % Normal 42.0-54.0 [facility] Comment on above: Performed By: #### C BC #### [facility] [address] [place] [address] Dr. Reba Landis Hemoglobin (Bld) [Mass/Vol] 14.4 g/dL Normal 14.0-18.0 [facility] Comment on above: Performed By: #### C BC #### [facility] [address] [place] [address] Dr. Reba Landis IG # 0.16 10e3/ul Critically high 0.00-0.03 The [facility] Comment on above: Performed By: #### C BC #### [facility] [address] [place] [address] Dr. Reba Landis IG % 1.0 % Critically high 0.0-0.5 The [facility] Comment on above: Performed By: #### C BC #### [facility] [address] [place] [address] Dr. Reba Landis LYMPH # 0.9 103/ul Critically low 1.2-3.8 The [facility] Comment on above: Performed By: #### C BC #### [facility] [address] [place] [address] Dr. Reba Landis Lymphocytes/100 WBC (Bld) 5.2 % Critically low 20.5-60.0 [facility] Comment on above: Performed By: #### C BC #### [facility] [address] [place] [address] Dr. Reba Landis MANUAL DIFF REQ NO Normal The [facility] Comment on above: Performed By: #### C BC #### [facility] [address] [place] [address] Dr. Reba Landis MCH (RBC) [Entitic mass] 29.0 pg Normal 25.9-34.0 [facility] Comment on above: Performed By: #### C BC #### [facility] [address] [place] [address] Dr. Reba Landis MCHC (RBC) [Mass/Vol] 33.3 g/dL Normal 29.9-35.2 [facility] Comment on above: Performed By: #### C BC #### [facility] [address] [address] [address] Reba Landis MCV (RBC) [Entitic vol] 87.1 fL Normal 80.0-94.0 [facility] Comment on above: Performed By: #### C BC #### [facility] [address] [address] [address] Reba Landis MONO # 0.5 103/ul Normal 0.3-0.8 [facility] Comment on above: Performed By: #### C BC #### [facility] [address] [place] [address] Dr. Reba Landis Monocytes/100 WBC (Bld) 3.0 % Normal 1.7-12.0 [facility] Comment on above: Performed By: #### C BC #### [facility] [address] [place] [address] Dr. Reba Landis NEUT # 15.0 103/ul Critically high 1.4-6.5 The [facility] Comment on above: Performed By: #### C BC #### [facility] [address] [place] [address] Dr. Reba Landsi Neutrophils/100 WBC (Bld) 90.6 % Critically high 43.0-75.0 [facility] Comment on above: Performed By: #### C BC #### [facility] [address] [place] [address] Dr. Reba Landis Platelet mean volume (Bld) [Entitic vol] 10.8 fL Normal 9.5-13.5 [facility] Comment on above: Performed By: #### C BC #### [facility] [address] [place] [address] Dr. Reba Landis PLT 302 103/ul Normal 150-450 [facility] Comment on above: Performed By: #### C BC #### [facility] [address] [place] [address] Dr. Reba Landis RBC 4.97 106/ul Normal 4.70-6.10 [facility] Comment on above: Performed By: #### C BC #### [facility] [address] [address] [address] Reba Landis WBC 16.5 103/ul Critically high 4.0-11.0 [facility] Comment on above: Performed By: #### C BC #### [facility] [address] [address] [address] Reba Landis CRPon 04-20-2021 CRP 3.3 mg/dL Critically high <=1.0 [facility] Comment on above: Performed By: #### T RUFINO, CMP, CRP #### [facility] [address] [address] [address] Reba Landis Covid-19 PCR (CVDTB)on 04-01 SARS-CoV-2 (COVID-19) RNA RADHA+probe Ql (Unsp spec) Not detected Normal NOT DETECTED [facility] Comment on above: Result Comment: This test is not yet approved or cleared by the [place] FDA. When there are no FDA-approved or cleared tests available, and other criteria are met, FDA can make tests available under an emergency access mechanism called an Emergency Use Authorization (EUA). The EUA for this test is supported by the [place] of Health and Human Service's (HHS's) declaration [...] SARS-CoV-2. Performed By: #### C VDTBH #### [facility] [address] [address] [address] Reba Landis PROF 14(COMP METB)on 021 Albumin [Mass/Vol] 2.8 g/dL Critically low 3.5-5.0 Th e [facility] Comment on above: Performed By: #### T RUFINO, CMP, CRP #### [facility] [address] [address] [address] Reba Landis Albumin/Globulin [Mass ratio] 0.7 {ratio} Normal [facility] Comment on above: Performed By: #### T RUFINO, CMP, CRP #### [facility] [address] [address] [address] Reba Landis ALP [Catalytic activity/Vol] 79 U/L Normal 38-126 [facility] Comment on above: Performed By: #### T RUFINO CMP, CRP #### [facility] [address] [address] [address] Reba Landis ALT [Catalytic activity/Vol] 51 U/L Normal 21-72 [facility] Comment on above: Performed By: #### T RUFINO CMP, CRP #### [facility] [address] [address] [address] Reba Landis Anion gap [Moles/Vol] 14.0 mmol/L Normal [facility] Comment on above: Performed By: #### T RUFINO CMP, CRP #### [facility] [address] [address] [address] Reba Landis AST [Catalytic activity/Vol] 24 U/L Normal 17-59 [facility] Comment on above: Performed By: #### T RUFINO, CMP, CRP #### [facility] [address] [address] [address] Reba Landis Bilirubin [Mass/Vol] 0.4 mg/dL Normal 0.2-1.3 [facility] Comment on above: Performed By: #### T RUFINO, CMP, CRP #### [facility] [address] [address] [address] Reba Landis Calcium [Mass/Vol] 8.8 mg/dL Normal 8.4-10.2 [facility] Comment on above: Performed By: #### T RUFINO, CMP, CRP #### [facility] [address] [address] [address] Reba Landis Chloride [Moles/Vol] 103 mmol/L Normal 98-107 [facility] Comment on above: Performed By: #### Peyton JOY CMP, CRP #### [facility] [address] [address] [address] Reba Landis CO2 [Moles/Vol] 24.1 mmol/L Normal 22.0-30.0 The [facility] Comment on above: Performed By: #### Peyton JOY CMP, CRP #### [facility] [address] [address] [address] Reba Landis Creatinine [Mass/Vol] 1.08 mg/dL Normal 0.66-1.25 [facility] Comment on above: Performed By: #### Peyton JOY CMP, CRP #### [facility] [address] [place] [address] Dr. Reba Landis EGFR-AF SOUTH AFRICAN >60 Normal >=60 The [facility] Comment on above: Performed By: #### Peyton JOY CMP, CRP #### [facility] [address] [place] [address] Dr. Reba Landis EGFR-NON AF SOUTH AFRICAN >60 Normal >=60 [facility] Comment on above: Performed By: #### Peyton JOY CMP, CRP #### [facility] [address] [place] [address] Dr. Reba Landis Globulin (S) [Mass/Vol] 4.3 g/dL Normal [facility] Comment on above: Performed By: #### Peyton JOY CMP, CRP #### [facility] [address] [place] [address] Dr. Reba Landis Glucose [Mass/Vol] 204 mg/dL Critically high 74-106 [facility] Comment on above: Performed By: #### Peyton JOY CMP, CRP #### [facility] [address] [place] [address] Dr. Reba Landis Potassium [Moles/Vol] 4.1 mmol/L Normal 3.4-5.0 [facility] Comment on above: Performed By: #### T RUFINO, CMP, CRP #### [facility] [address] [address] [address] Reba Landis Protein [Mass/Vol] 7.1 g/dL Normal 6.1-8.2 [facility] Comment on above: Performed By: #### T RUFINO, CMP, CRP #### [facility] [address] [place] [address] Dr. Reba Landis Sodium [Moles/Vol] 137 mmol/L Normal 137-145 [facility] Comment on above: Performed By: #### T RUFINO, CMP, CRP #### [facility] [address] [place] [address] Dr. Reba Landis Urea nitrogen [Mass/Vol] 19.0 mg/dL Normal 9.0-20.0 [facility] Comment on above: Performed By: #### T RUFINO, CMP, CRP #### [facility] [address] [place] [address] Dr. Reba Landis Urea nitrogen/Creatinin e [Mass ratio] 17.6 mg/mg Normal [facility] Comment on above: Performed By: #### T RUFINO, CMP, CRP #### [facility] [address] [place] [address] Dr. Reba Landis THEOPHYLLINEon 04-20-2021 THEOPHYLLINE 11.0 ug/mL Normal 8.0-20.0 [facility] Comment on above: Performed By: #### T RUFINO, CMP, CRP #### [facility] [address] [place] [address] Dr. Reba Landis CBC AUTO DIFFon 04-19-2021 BASO # 0.0 103/ul Normal 0.0-0.1 [facility] Comment on above: Performed By: #### H STROPN, CMP #### [facility] [address] [place] [address] Dr. Reba Landis Basophils/100 WBC (Bld) 0.1 % Critically low 0.2-2.0 [facility] Comment on above: Performed By: #### H EDNAPN, CMP #### [facility] [address] [place] [address] Dr. Reba Landis EO # 0.0 103/ul Normal 0.0-0.7 [facility] Comment on above: Performed By: #### H STROPN, CMP #### [facility] [address] [place] [address] Dr. Reba Landis Eosinophils/100 WBC (Bld) 0.0 % Critically low 0.9-7.0 [facility] Comment on above: Performed By: #### H STROPN, CMP #### [facility] [address] [place] [address] Dr. Reba Landis Erythrocyte distribution width (RBC) [Ratio] 12.1 % Normal 11.0-15.0 [facility] Comment on above: Performed By: #### H STROPN, CMP #### [facility] [address] [place] [address] Dr. Reba Landis Hematocrit (Bld) [Volume fraction] 42.3 % Normal 42.0-54.0 [facility] Comment on above: Performed By: #### H STROPN, CMP #### [facility] [address] [place] [address] Dr. Reba Landis Hemoglobin (Bld) [Mass/Vol] 13.7 g/dL Critically low 14.0-18.0 [facility] Comment on above: Performed By: #### H STROPN, CMP #### [facility] [address] [place] [address] Dr. Reba Landis IG # 0.13 10e3/ul Critically high 0.00-0.03 [facility] Comment on above: Performed By: #### H STROPN, CMP #### [facility] [address] [place] [address] Dr. Reba Landis IG % 0.8 % Critically high 0.0-0.5 The [facility] Comment on above: Performed By: #### H STROPN, CMP #### [facility] [address] [place] [address] Dr. Reba Landis LYMPH # 0.8 103/ul Critically low 1.2-3.8 [facility] Comment on above: Performed By: #### H STROPN, CMP #### [facility] [address] [address] [address] Reba Landis Lymphocytes/100 WBC (Bld) 5.0 % Critically low 20.5-60.0 [facility] Comment on above: Performed By: #### H STROPN, CMP #### [facility] [address] [address] [address] Reba Landis MANUAL DIFF REQ NO Normal [facility] Comment on above: Performed By: #### H STROPN, CMP #### [facility] [address] [address] [address] Reba Landis MCH (RBC) [Entitic mass] 28.5 pg Normal 25.9-34.0 [facility] Comment on above: Performed By: #### H STROPN, CMP #### [facility] [address] [place] [address] Dr. Reba Landis MCHC (RBC) [Mass/Vol] 32.4 g/dL Normal 29.9-35.2 [facility] Comment on above: Performed By: #### H STROPN, CMP #### [facility] [address] [place] [address] Dr. Reba Landis MCV (RBC) [Entitic vol] 87.9 fL Normal 80.0-94.0 [facility] Comment on above: Performed By: #### H STROPN, CMP #### [facility] [address] [address] [address] Reba Landis MONO # 0.4 103/ul Normal 0.3-0.8 [facility] Comment on above: Performed By: #### H STROPN, CMP #### [facility] [address] [place] [address] Dr. Reba Landis Monocytes/100 WBC (Bld) 2.3 % Normal 1.7-12.0 [facility] Comment on above: Performed By: #### H STROPN, CMP #### [facility] [address] [place] [address] Dr. Reba Landis NEUT # 14.3 103/ul Critically high 1.4-6.5 The [facility] Comment on above: Performed By: #### H STROPN, CMP #### [facility] [address] [address] [address] Reba Landis Neutrophils/100 WBC (Bld) 91.8 % Critically high 43.0-75.0 [facility] Comment on above: Performed By: #### H STROPN, CMP #### [facility] [address] [address] [address] Reba Landis Platelet mean volume (Bld) [Entitic vol] 10.9 fL Normal 9.5-13.5 [facility] Comment on above: Performed By: #### H STROPN, CMP #### [facility] [address] [address] [address] Reba Landis PLT 234 103/ul Normal 150-450 [facility] Comment on above: Performed By: #### H STROPN, CMP #### [facility] [address] [address] [address] Reba Landis RBC 4.81 106/ul Normal 4.70-6.10 [facility] Comment on above: Performed By: #### H STROPN, CMP #### [facility] [address] [address] [address] Reba Landis WBC 15.5 103/ul Critically high 4.0-11.0 [facility] Comment on above: Performed By: #### H STROPN, CMP #### [facility] [address] [address] [address] Reba Landis CRPon 04-19-2021 CRP 5.6 mg/dL Critically high <=1.0 [facility] Comment on above: Performed By: #### H STROPN, CMP #### [facility] [address] [address] [address] Reba Landis PROF 14(COMP METB)on 021 Albumin [Mass/Vol] 2.6 g/dL Critically low 3.5-5.0 [facility] Comment on above: Performed By: #### H STROPN, CMP #### [facility] [address] [address] [address] Reba Landis Albumin/Globulin [Mass ratio] 0.6 {ratio} Normal [facility] Comment on above: Performed By: #### H JEZ, CMP #### [facility] [address] [address] [address] Reba Landis ALP [Catalytic activity/Vol] 78 U/L Normal 38-126 [facility] Comment on above: Performed By: #### H EDNAPN, CMP #### [facility] [address] [address] [address] Reba Landis ALT [Catalytic activity/Vol] 51 U/L Normal 21-72 [facility] Comment on above: Performed By: #### H JEZ, CMP #### [facility] [address] [place] [address] Dr. Reba Landis Anion gap [Moles/Vol] 10.6 mmol/L Normal [facility] Comment on above: Performed By: #### H JEZ, CMP #### [facility] [address] [place] [address] Dr. Reba Landis AST [Catalytic activity/Vol] 26 U/L Normal 17-59 [facility] Comment on above: Performed By: #### H JEZ, CMP #### [facility] [address] [place] [address] Dr. Reba Landis Bilirubin [Mass/Vol] 0.5 mg/dL Normal 0.2-1.3 [facility] Comment on above: Performed By: #### H JEZ, CMP #### [facility] [address] [place] [address] Dr. Reba Landis Calcium [Mass/Vol] 8.8 mg/dL Normal 8.4-10.2 [facility] Comment on above: Performed By: #### H JEZ, CMP #### [facility] [address] [address] [address] Reba Landis Chloride [Moles/Vol] 103 mmol/L Normal 98-107 [facility] Comment on above: Performed By: #### H JEZ, CMP #### [facility] [address] [place] [address] Dr. Reba Landis CO2 [Moles/Vol] 28.9 mmol/L Normal 22.0-30.0 [facility] Comment on above: Performed By: #### H EDNAPN, CMP #### [facility] [address] [address] [address] Reba Landis Creatinine [Mass/Vol] 1.18 mg/dL Normal 0.66-1.25 [facility] Comment on above: Performed By: #### H STROPN, CMP #### [facility] [address] [place] [address] Dr. Reba Landis EGFR-AF SOUTH AFRICAN >60 Normal >=60 [facility] Comment on above: Performed By: #### H EDNAPN, CMP #### [facility] [address] [place] [address] Dr. Reba Landis EGFR-NON AF SOUTH AFR[place] >60 Normal >=60 [facility] Comment on above: Performed By: #### H JEZ, CMP #### [facility] [address] [address] [address] Reba Landis Globulin (S) [Mass/Vol] 4.2 g/dL Normal [facility] Comment on above: Performed By: #### H JEZ, CMP #### [facility] [address] [address] [address] Reba Landis Glucose [Mass/Vol] 204 mg/dL Critically high 74-106 [facility] Comment on above: Performed By: #### H JEZ, CMP #### [facility] [address] [address] [address] Reba Landis Potassium [Moles/Vol] 4.5 mmol/L Normal 3.4-5.0 [facility] Comment on above: Performed By: #### H STROPN, CMP #### [facility] [address] [address] [address] Reba Landis Protein [Mass/Vol] 6.8 g/dL Normal 6.1-8.2 [facility] Comment on above: Performed By: #### H EDNAPN, CMP #### [facility] [address] [address] [address] Reba Landis Sodium [Moles/Vol] 138 mmol/L Normal 137-145 [facility] Comment on above: Performed By: #### H JEZ, CMP #### [facility] [address] [place] [address] Dr. Reba Landis Urea nitrogen [Mass/Vol] 19.0 mg/dL Normal 9.0-20.0 [facility] Comment on above: Performed By: #### H JEZ, CMP #### [facility] [address] [place] [address] Dr. Reba Landis Urea nitrogen/Creatinin e [Mass ratio] 16.1 mg/mg Normal [facility] Comment on above: Performed By: #### H JEZ, CMP #### [facility] [address] [place] [address] Dr. Reba Landis THEOPHYLLINEon 04-19-2021 THEOPHYLLINE 10.6 ug/mL Normal 8.0-20.0 [facility] Comment on above: Performed By: #### H JEZ, CMP #### [facility] [address] [place] [address] Dr. Reba Landis CBC W MANUAL DIFFon 04-18-20 ATYPICAL LYMPH # 0.00 103/ul Normal [facility] Comment on above: Performed By: #### C BC #### [facility] [address] [place] [address] Dr. Reba Landis ATYPICAL LYMPH % 0 % Normal The [facility] Comment on above: Performed By: #### C BC #### [facility] [address] [place] [address] Dr. Reba Landis BAND # Normal 0.0-0.3 [facility] Comment on above: Performed By: #### C BC #### [facility] [address] [place] [address] Dr. Reba Landis BAND % Normal 0-5 [facility] Comment on above: Performed By: #### C BC #### [facility] [address] [place] [address] Dr. Reba Landis BASOM # 0.00 103/ul Normal 0.00-0.10 [facility] Comment on above: Performed By: #### C BC #### [facility] [address] [place] [address] Dr. Reba Landis BASOM % 0.0 % Critically low 0.2-2.0 [facility] Comment on above: Performed By: #### C BC #### [facility] [address] [place] [address] Dr. Reba Landis BLAST # Normal [facility] Comment on above: Performed By: #### C BC #### [facility] [address] [place] [address] Dr. Reba Landis BLAST % Normal [facility] Comment on above: Performed By: #### C BC #### [facility] [address] [place] [address] Dr. Reba Landis CORRECTED WBC Normal 4.0-11.0 [facility] Comment on above: Performed By: #### C BC #### [facility] [address] [place] [address] Dr. Reba Landis EOS # 0.09 103/ul Normal 0.00-0.70 [facility] Comment on above: Performed By: #### C BC #### [facility] [address] [place] [address] Dr. Reba Landis EOS% 1.0 % Normal 0.9-7.0 [facility] Comment on above: Performed By: #### C BC #### [facility] [address] [place] [address] Dr. Reba Landis HCT 43.9 % Normal 42.0-54.0 [facility] Comment on above: Performed By: #### C BC #### [facility] [address] [place] [address] Dr. Reba Landis HGB 14.1 g/dl Normal 14.0-18.0 [facility] Comment on above: Performed By: #### C BC #### [facility] [address] [place] [address] Dr. Reba Landis LYMPHM # 0.92 103/ul Critically low 1.20-3.80 [facility] Comment on above: Performed By: #### C BC #### [facility] [address] [place] [address] Dr. Reba Landis LYMPHM% 10.0 % Critically low 20.5-60.0 [facility] Comment on above: Performed By: #### C BC #### [facility] [address] [place] [address] Dr. Reba Landis MCH 28.7 pg Normal 25.9-34.0 [facility] Comment on above: Performed By: #### C BC #### [facility] [address] [place] [address] Dr. Reba Landis MCHC 32.1 g/dl Normal 29.9-35.2 [facility] Comment on above: Performed By: #### C BC #### [facility] [address] [place] [address] Dr. Reba Landis MCV 89.4 fL Normal 80.0-94.0 [facility] Comment on above: Performed By: #### C BC #### [facility] [address] [place] [address] Dr. Reba Landis METAMYELOCYTE # Normal [facility] Comment on above: Performed By: #### C BC #### [facility] [address] [place] [address] Dr. Reba Landis METAMYELOCYTE % Normal [facility] Comment on above: Performed By: #### C BC #### [facility] [address] [place] [address] Dr. Reba Landis MONOM# 0.18 103/ul Critically low 0.30-0.80 [facility] Comment on above: Performed By: #### C BC #### [facility] [address] [place] [address] Dr. Reba Landis MONOM% 2.0 % Normal 1.7-12.0 [facility] Comment on above: Performed By: #### C BC #### [facility] [address] [place] [address] Dr. Reba Landis MPV 11.1 fL Normal 9.5-13.5 [facility] Comment on above: Performed By: #### C BC #### [facility] [address] [place] [address] Dr. Reba Landis MYELOCYTE # Normal [facility] Comment on above: Performed By: #### C BC #### [facility] [address] [place] [address] Dr. Reba Landis MYELOCYTE % Normal [facility] Comment on above: Performed By: #### C BC #### [facility] [address] [place] [address] Dr. Reba Landis NRBC Normal [facility] Comment on above: Performed By: #### C BC #### [facility] [address] [place] [address] Dr. Reba Landis PLT 175 103/ul Normal 150-450 [facility] Comment on above: Performed By: #### C BC #### [facility] [address] [place] [address] Dr. Reba Landis RBC 4.91 106/ul Normal 4.70-6.10 [facility] Comment on above: Performed By: #### C BC #### [facility] [address] [place] [address] Dr. Reba Landis RDW 12.1 % Normal 11.0-15.0 [facility] Comment on above: Performed By: #### C BC #### [facility] [address] [place] [address] Dr. Reba Landis SEG # 8.00 103/ul Critically high 1.40-6.50 [facility] Comment on above: Performed By: #### C BC #### [facility] [address] [place] [address] Dr. Reba Landis SEG % 87.0 % Critically high 43.0-75.0 [facility] Comment on above: Performed By: #### C BC #### [facility] [address] [place] [address] Dr. Reba Landis WBC 9.2 103/ul Normal 4.0-11.0 [facility] Comment on above: Performed By: #### C BC #### [facility] [address] [place] [address] Dr. Reba Landis CRPon 04-18-2021 CRP [Mass/Vol] mg/L Critically high <=1.0 [facility] Comment on above: Performed By: #### C BC #### [facility] [address] [place] [address] Dr. Reba Landis PROF 14(COMP METB)on 021 Albumin [Mass/Vol] 2.8 g/dL Critically low 3.5-5.0 [facility] Comment on above: Performed By: #### C BC #### [facility] [address] [place] [address] Dr. Reba Landis Albumin/Globulin [Mass ratio] 0.6 {ratio} Normal [facility] Comment on above: Performed By: #### C BC #### [facility] [address] [place] [address] Dr. Reba Landis ALP [Catalytic activity/Vol] 86 U/L Normal 38-126 [facility] Comment on above: Performed By: #### C BC #### [facility] [address] [place] [address] Dr. Reba Landis ALT [Catalytic activity/Vol] 63 U/L Normal 21-72 [facility] Comment on above: Performed By: #### C BC #### [facility] [address] [place] [address] Dr. Reba Landis Anion gap [Moles/Vol] 12.7 mmol/L Normal [facility] Comment on above: Performed By: #### C BC #### [facility] [address] [place] [address] Dr. Reba Landis AST [Catalytic activity/Vol] 54 U/L Normal 17-59 [facility] Comment on above: Performed By: #### C BC #### [facility] [address] [place] [address] Dr. Reba Landis Bilirubin [Mass/Vol] 0.5 mg/dL Normal 0.2-1.3 [facility] Comment on above: Performed By: #### C BC #### [facility] [address] [address] [address] Reba Landis Calcium [Mass/Vol] 9.0 mg/dL Normal 8.4-10.2 [facility] Comment on above: Performed By: #### C BC #### [facility] [address] [place] [address] Dr. Reba Landis Chloride [Moles/Vol] 101 mmol/L Normal 98-107 [facility] Comment on above: Performed By: #### C BC #### [facility] [address] [place] [address] Dr. Reba Landis CO2 [Moles/Vol] 27.6 mmol/L Normal 22.0-30.0 [facility] Comment on above: Performed By: #### C BC #### [facility] [address] [place] [address] Dr. Reba Landis Creatinine [Mass/Vol] 0.97 mg/dL Normal 0.66-1.25 [facility] Comment on above: Performed By: #### C BC #### [facility] [address] [place] [address] Dr. Reba Landis EGFR-AF SOUTH AFRICAN >60 Normal >=60 [facility] Comment on above: Performed By: #### C BC #### [facility] [address] [place] [address] Dr. Reba Landis EGFR-NON AF SOUTH AFRICAN >60 Normal >=60 [facility] Comment on above: Performed By: #### C BC #### [facility] [address] [place] [address] Dr. Reba Landis Globulin (S) [Mass/Vol] 4.6 g/dL Normal [facility] Comment on above: Performed By: #### C BC #### [facility] [address] [place] [address] Dr. Reba Landis Glucose [Mass/Vol] 170 mg/dL Critically high 74-106 T [facility] Comment on above: Performed By: #### C BC #### [facility] [address] [place] [address] Dr. Reba Landis Potassium [Moles/Vol] 4.3 mmol/L Normal 3.4-5.0 [facility] Comment on above: Performed By: #### C BC #### [facility] [address] [address] [address] Reba Landis Protein [Mass/Vol] 7.4 g/dL Normal 6.1-8.2 [facility] Comment on above: Performed By: #### C BC #### [facility] [address] [address] [address] Reba Landis Sodium [Moles/Vol] 137 mmol/L Normal 137-145 [facility] Comment on above: Performed By: #### C BC #### [facility] [address] [place] [address] Dr. Reba Landis Urea nitrogen [Mass/Vol] 13.0 mg/dL Normal 9.0-20.0 [facility] Comment on above: Performed By: #### C BC #### [facility] [address] [place] [address] Dr. Reba Landis Urea nitrogen/Creatinin e [Mass ratio] 13.4 mg/mg Normal [facility] Comment on above: Performed By: #### C BC #### [facility] [address] [place] [address] Dr. Reba Landis THEOPHYLLINEon 04-18-2021 THEOPHYLLINE 8.5 ug/mL Normal 8.0-20.0 [facility] Comment on above: Performed By: #### C BC #### [facility] [address] [place] [address] Dr. Reba Landis CBC AUTO DIFFon 04-17-2021 BASO # 0.0 103/ul Normal 0.0-0.1 [facility] Comment on above: Performed By: #### C BC #### [facility] [address] [place] [address] Dr. Reba Landis Basophils/100 WBC (Bld) 0.1 % Critically low 0.2-2.0 [facility] Comment on above: Performed By: #### C BC #### [facility] [address] [address] [address] Reba Landis EO # 0.0 103/ul Normal 0.0-0.7 [facility] Comment on above: Performed By: #### C BC #### [facility] [address] [place] [address] Dr. Reba Landis Eosinophils/100 WBC (Bld) 0.0 % Critically low 0.9-7.0 [facility] Comment on above: Performed By: #### C BC #### [facility] [address] [place] [address] Dr. Reba Landis Erythrocyte distribution width (RBC) [Ratio] 12.0 % Normal 11.0-15.0 [facility] Comment on above: Performed By: #### C BC #### [facility] [address] [place] [address] Dr. Reba Landis Hematocrit (Bld) [Volume fraction] 43.7 % Normal 42.0-54.0 [facility] Comment on above: Performed By: #### C BC #### [facility] [address] [place] [address] Dr. Reba Landis Hemoglobin (Bld) [Mass/Vol] 14.7 g/dL Normal 14.0-18.0 [facility] Comment on above: Performed By: #### C BC #### [facility] [address] [place] [address] Dr. Reba Landis IG # 0.22 10e3/ul Critically high 0.00-0.03 The [facility] Comment on above: Performed By: #### C BC #### [facility] [address] [place] [address] Dr. Reba Landis IG % 1.4 % Critically high 0.0-0.5 [facility] Comment on above: Performed By: #### C BC #### [facility] [address] [place] [address] Dr. Reba Landis LYMPH # 0.9 103/ul Critically low 1.2-3.8 [facility] Comment on above: Performed By: #### C BC #### [facility] [address] [address] [address] Reba Landis Lymphocytes/100 WBC (Bld) 5.7 % Critically low 20.5-60.0 [facility] Comment on above: Performed By: #### C BC #### [facility] [address] [address] [address] Reba Landis MANUAL DIFF REQ NO Normal [facility] Comment on above: Performed By: #### C BC #### [facility] [address] [address] [address] Reba Landis MCH (RBC) [Entitic mass] 28.8 pg Normal 25.9-34.0 [facility] Comment on above: Performed By: #### C BC #### [facility] [address] [place] [address] Dr. Reba Landis MCHC (RBC) [Mass/Vol] 33.6 g/dL Normal 29.9-35.2 [facility] Comment on above: Performed By: #### C BC #### [facility] [address] [place] [address] Dr. Reba Landis MCV (RBC) [Entitic vol] 85.5 fL Normal 80.0-94.0 [facility] Comment on above: Performed By: #### C BC #### [facility] [address] [place] [address] Dr. Reba Landis MONO # 0.3 103/ul Normal 0.3-0.8 [facility] Comment on above: Performed By: #### C BC #### [facility] [address] [place] [address] Dr. Reba Landis Monocytes/100 WBC (Bld) 2.2 % Normal 1.7-12.0 [facility] Comment on above: Performed By: #### C BC #### [facility] [address] [place] [address] Dr. Reba Landis NEUT # 13.8 103/ul Critically high 1.4-6.5 The [facility] Comment on above: Performed By: #### C BC #### [facility] [address] [place] [address] Dr. Reba Landis Neutrophils/100 WBC (Bld) 90.6 % Critically high 43.0-75.0 [facility] Comment on above: Performed By: #### C BC #### [facility] [address] [place] [address] Dr. Reba Landis Platelet mean volume (Bld) [Entitic vol] 11.3 fL Normal 9.5-13.5 [facility] Comment on above: Performed By: #### C BC #### [facility] [address] [place] [address] Dr. Reba Landis PLT 168 103/ul Normal 150-450 [facility] Comment on above: Performed By: #### C BC #### [facility] [address] [place] [address] Dr. Reba Landis RBC 5.11 106/ul Normal 4.70-6.10 [facility] Comment on above: Performed By: #### C BC #### [facility] [address] [place] [address] Dr. Reba Landis WBC 15.2 103/ul Critically high 4.0-11.0 [facility] Comment on above: Performed By: #### C BC #### [facility] [address] [place] [address] Dr. Reba Landis CRPon 04-17-2021 CRP [Mass/Vol] mg/L Critically high <=1.0 [facility] Comment on above: Performed By: #### C BC #### [facility] [address] [place] [address] Dr. Reba Landis CULTURE BLOODon 04-17-2021 Microscopic examination of blood, culture Culture Observations: NO GROWTH AT 5 DAYS. Normal [facility] Comment on above: Performed By: #### Ruddy STORY, CMP #### [facility] [address] [place] [address] Dr. Reba Landis Microscopic examination of blood, culture Culture Observations: NO GROWTH AT 5 DAYS. Normal [facility] Comment on above: Performed By: #### H JEZ, CMP #### [facility] [address] [place] [address] Dr. Reba Landis CULTURE SPUTUMon 04-17-2021 CULTURE SPUTUM Culture Observations : NORMAL RESPIRATORY JIN. Normal [facility] Comment on above: Performed By: #### H JEZ, CMP #### [facility] [address] [place] [address] Dr. Reba Landis LACTATE/LACTIC ACIDon 2020 Lactate [Moles/Vol] 1.7 mmol/L Normal 0.7-2.0 [facility] Comment on above: Performed By: #### H JEZ, CMP #### [facility] [address] [address] [address] Reba Landis Lactate [Moles/Vol] 1.6 mmol/L Normal 0.7-2.0 [facility] Comment on above: Performed By: #### L ACT #### [facility] [address] [place] [address] Dr. Reba Landis PROF 14(COMP METB)on 021 Albumin [Mass/Vol] 3.3 g/dL Critically low 3.5-5.0 Th e [facility] Comment on above: Performed By: #### C BC #### [facility] [address] [place] [address] Dr. Reba Landis Albumin/Globulin [Mass ratio] 0.8 {ratio} Normal [facility] Comment on above: Performed By: #### C BC #### [facility] [address] [place] [address] Dr. Reba Landis ALP [Catalytic activity/Vol] 68 U/L Normal 38-126 [facility] Comment on above: Performed By: #### C BC #### [facility] [address] [place] [address] Dr. Reba Landis ALT [Catalytic activity/Vol] 41 U/L Normal 21-72 [facility] Comment on above: Performed By: #### C BC #### [facility] [address] [place] [address] Dr. Reba Landis Anion gap [Moles/Vol] 15.2 mmol/L Normal [facility] Comment on above: Performed By: #### C BC #### [facility] [address] [address] [address] Reba Landis AST [Catalytic activity/Vol] 32 U/L Normal 17-59 [facility] Comment on above: Performed By: #### C BC #### [facility] [address] [address] [address] Reba Landis Bilirubin [Mass/Vol] 0.8 mg/dL Normal 0.2-1.3 [facility] Comment on above: Performed By: #### C BC #### [facility] [address] [address] [address] Reba Landis Calcium [Mass/Vol] 8.9 mg/dL Normal 8.4-10.2 [facility] Comment on above: Performed By: #### C BC #### [facility] [address] [place] [address] Dr. Reba Landis Chloride [Moles/Vol] 95 mmol/L Critically low 98-107 [facility] Comment on above: Performed By: #### C BC #### [facility] [address] [address] [address] Reba Landis CO2 [Moles/Vol] 27.1 mmol/L Normal 22.0-30.0 [facility] Comment on above: Performed By: #### C BC #### [facility] [address] [place] [address] Dr. Reba Landis Creatinine [Mass/Vol] 1.05 mg/dL Normal 0.66-1.25 [facility] Comment on above: Performed By: #### C BC #### [facility] [address] [address] [address] Reba Landis EGFR-AF SOUTH AFRICAN >60 Normal >=60 [facility] Comment on above: Performed By: #### C BC #### [facility] [address] [place] [address] Dr. Reba Landis EGFR-NON AF SOU[place] AFR[place] >60 Normal >=60 [facility] Comment on above: Performed By: #### C BC #### [facility] [address] [place] [address] Dr. Reba Landis Globulin (S) [Mass/Vol] 4.4 g/dL Normal [facility] Comment on above: Performed By: #### C BC #### [facility] [address] [address] [address] Reba Landis Glucose [Mass/Vol] 133 mg/dL Critically high 74-106 T [facility] Comment on above: Performed By: #### C BC #### [facility] [address] [address] [address] Reba Landis Potassium [Moles/Vol] 3.3 mmol/L Critically low 3.4-5.0 [facility] Comment on above: Performed By: #### C BC #### [facility] [address] [place] [address] Dr. Reba Landis Protein [Mass/Vol] 7.7 g/dL Normal 6.1-8.2 [facility] Comment on above: Performed By: #### C BC #### [facility] [address] [address] [address] Reba Landis Sodium [Moles/Vol] 134 mmol/L Critically low 137-145 Th [facility] Comment on above: Performed By: #### C BC #### [facility] [address] [place] [address] Dr. Reba Landis Urea nitrogen [Mass/Vol] 10.0 mg/dL Normal 9.0-20.0 [facility] Comment on above: Performed By: #### C BC #### [facility] [address] [place] [address] Dr. Reba Landis Urea nitrogen/Creatinin e [Mass ratio] 9.5 mg/mg Normal [facility] Comment on above: Performed By: #### C BC #### [facility] [address] [place] [address] Dr. Reba Landis SPUTUM GRAM STAINon 04-17-20 COMMENTS [facility] Comment on above: Performed By: #### C BC #### [facility] [address] [place] [address] Dr. Reba Landis DIPHTHEROIDS Normal [facility] Comment on above: Performed By: #### C BC #### [facility] [address] [address] [address] Reba Landis EPITHELIALS <25 Normal [facility] Comment on above: Performed By: #### C BC #### [facility] [address] [address] [address] Reba Landis FUNGAL ELEMENTS Normal [facility] Comment on above: Performed By: #### C BC #### [facility] [address] [address] [address] Reba Landis GRAM NEG BACILLI MODERATE Normal The [facility] Comment on above: Performed By: #### C BC #### [facility] [address] [place] [address] Dr. Reba Landis GRAM NEG DIPPLOCOCCI Normal [facility] Comment on above: Performed By: #### C BC #### [facility] [address] [address] [address] Reba Landis GRAM POS BACILLI MODERATE Normal The [facility] Comment on above: Performed By: #### C BC #### [facility] [address] [address] [address] Reba Landis GRAM POSITIVE COCCI MODERATE Normal [facility] Comment on above: Performed By: #### C BC #### [facility] [address] [place] [address] Dr. Reba Landis WBC (Bld) [#/Vol] 10*3/uL Normal The [facility] Comment on above: Performed By: #### C BC #### [facility] [address] [place] [address] Dr. Reba Landis TROPONIN, HIGH SENSITIVITYon 04-17-2021 HSTROP 7.7 pg/mL Normal 4.0-42.2 [facility] Comment on above: Result Comment: CUT- OFF POINTS HAVE BEEN ESTABLISHED BASED ON THE FOURTH UNIVERSAL DEFINITIONS OF MYOCARDIAL INFARCTION. THE UPPER REFERENCE LIMIT (URL) OF TROPONIN, DEFINED THE 99TH PERCENTILE OF cTnI DISTRIBUTION IN A REFERENCE POPULATION, HAS BEEN CONFIRMED THE DECISION THRESHOLD FOR LA DIAGNOSIS. Performed By: #### C BC #### [facility] [address] [address] [address] Reba Landis HSTROP 7.0 pg/mL Normal 4.0-42.2 [facility] Comment on above: Result Comment: CUT- OFF POINTS HAVE BEEN ESTABLISHED BASED ON THE FOURTH UNIVERSAL DEFINITIONS OF MYOCARDIAL INFARCTION. THE UPPER REFERENCE LIMIT (URL) OF TROPONIN, DEFINED THE 99TH PERCENTILE OF cTnI DISTRIBUTION IN A REFERENCE POPULATION, HAS BEEN CONFIRMED THE DECISION THRESHOLD FOR LA DIAGNOSIS. Performed By: #### C BC #### [facility] [address] [address] [address] Reba Landis XR CHEST 1 Von [...] CHRISTINE PRYOR Date: 2021-04-17 04:57 Normal [facility] CBC W MANUAL DIFFon 04-15-20 21 ATYPICAL LYMPH # Normal The [facility] Comment on above: Performed By: #### H STROPN, CMP #### [facility] [address] [place] [address] Dr. Reba Landis ATYPICAL LYMPH % Normal The [facility] Comment on above: Performed By: #### H STROPN, CMP #### [facility] [address] [place] [address] Dr. Reba Landis BAND # Normal 0.0-0.3 [facility] Comment on above: Performed By: #### H STROPN, CMP #### [facility] [address] [place] [address] Dr. Reba Landis BAND % Normal 0-5 [facility] Comment on above: Performed By: #### H STROPN, CMP #### [facility] [address] [address] [address] Reba Landis BASOM # 0.00 103/ul Normal 0.00-0.10 [facility] Comment on above: Performed By: #### H STROPN, CMP #### [facility] [address] [address] [address] Reba Landis BASOM % 0.0 % Critically low 0.2-2.0 [facility] Comment on above: Performed By: #### H STROPN, CMP #### [facility] [address] [address] [address] Reba Landis BLAST # Normal [facility] Comment on above: Performed By: #### H STROPN, CMP #### [facility] [address] [place] [address] Dr. Reba Landis BLAST % Normal [facility] Comment on above: Performed By: #### H STROPN, CMP #### [facility] [address] [place] [address] Dr. Reba Landis CORRECTED WBC Normal 4.0-11.0 [facility] Comment on above: Performed By: #### H STROPN, CMP #### [facility] [address] [place] [address] Dr. Reba Landis EOS # 0.00 103/ul Normal 0.00-0.70 [facility] Comment on above: Performed By: #### H STROPN, CMP #### [facility] [address] [place] [address] Dr. Reba Landis EOS% 0.0 % Critically low 0.9-7.0 [facility] Comment on above: Performed By: #### H STROPN, CMP #### [facility] [address] [place] [address] Dr. Reba Landis HCT 44.6 % Normal 42.0-54.0 [facility] Comment on above: Performed By: #### H STROPN, CMP #### [facility] [address] [place] [address] Dr. Reba Landis HGB 15.4 g/dl Normal 14.0-18.0 [facility] Comment on above: Performed By: #### H STROPN, CMP #### [facility] [address] [address] [address] Reba Landis LYMPHM # 0.34 103/ul Critically low 1.20-3.80 [facility] Comment on above: Performed By: #### H STROPN, CMP #### [facility] [address] [address] [address] Reba Landis LYMPHM% 6.0 % Critically low 20.5-60.0 [facility] Comment on above: Performed By: #### H STROPN, CMP #### [facility] [address] [place] [address] Dr. Reba Landis MCH 29.7 pg Normal 25.9-34.0 [facility] Comment on above: Performed By: #### H STROPN, CMP #### [facility] [address] [place] [address] Dr. Reba Landis MCHC 34.5 g/dl Normal 29.9-35.2 [facility] Comment on above: Performed By: #### H STROPN, CMP #### [facility] [address] [place] [address] Dr. Reba Landis MCV 86.1 fL Normal 80.0-94.0 [facility] Comment on above: Performed By: #### H STROPN, CMP #### [facility] [address] [place] [address] Dr. Reba Landis METAMYELOCYTE # Normal [facility] Comment on above: Performed By: #### H STROPN, CMP #### [facility] [address] [place] [address] Dr. Reba Landis METAMYELOCYTE % Normal [facility] Comment on above: Performed By: #### H STROPN, CMP #### [facility] [address] [place] [address] Dr. Reba Landis MONOM# 0.22 103/ul Critically low 0.30-0.80 [facility] Comment on above: Performed By: #### H STROPN, CMP #### [facility] [address] [address] [address] Reba Landis MONOM% 4.0 % Normal 1.7-12.0 [facility] Comment on above: Performed By: #### H STROPN, CMP #### [facility] [address] [address] [address] Reba Landis MPV 10.7 fL Normal 9.5-13.5 [facility] Comment on above: Performed By: #### H STROPN, CMP #### [facility] [address] [address] [address] Reba Landis MYELOCYTE # Normal [facility] Comment on above: Performed By: #### H STROPN, CMP #### [facility] [address] [place] [address] Dr. Reba Landis MYELOCYTE % Normal [facility] Comment on above: Performed By: #### H STROPN, CMP #### [facility] [address] [address] [address] Reba Landis NRBC Normal [facility] Comment on above: Performed By: #### H STROPN, CMP #### [facility] [address] [place] [address] Dr. Reba Landis PLT 153 103/ul Normal 150-450 [facility] Comment on above: Performed By: #### H STROPN, CMP #### [facility] [address] [address] [address] Reba Landis RBC 5.18 106/ul Normal 4.70-6.10 [facility] Comment on above: Performed By: #### H STROPN, CMP #### [facility] [address] [address] [address] Reba Landis RDW 11.9 % Normal 11.0-15.0 [facility] Comment on above: Performed By: #### H STROPN, CMP #### [facility] [address] [place] [address] Dr. Reba Landis SEG # 5.04 103/ul Normal 1.40-6.50 [facility] Comment on above: Performed By: #### H STROPN, CMP #### [facility] [address] [address] [address] Reab Landis SEG % 90.0 % Critically high 43.0-75.0 [facility] Comment on above: Performed By: #### H STROPN, CMP #### [facility] [address] [address] [address] Reba Landis WBC 5.6 103/ul Normal 4.0-11.0 [facility] Comment on above: Performed By: #### H STROPN, CMP #### [facility] [address] [address] [address] Reba Landis CTA CHEST WO W [...] CAMPOS Date: 2021-04-15 15:59 Normal [facility] LACTATE/LACTIC ACIDon 2020 Lactate [Moles/Vol] 1.6 mmol/L Normal 0.7-2.0 [facility] Comment on above: Performed By: #### H STROPN, CMP #### [facility] [address] [address] [address] Reba Landis PROF 14(COMP METB)on 021 Albumin [Mass/Vol] 3.8 g/dL Normal 3.5-5.0 [facility] Comment on above: Performed By: #### H JEZ, CMP #### [facility] [address] [address] [address] Reba Landis Albumin/Globulin [Mass ratio] 0.9 {ratio} Normal [facility] Comment on above: Performed By: #### H JEZ, CMP #### [facility] [address] [address] [address] Reba Landis ALP [Catalytic activity/Vol] 68 U/L Normal 38-126 [facility] Comment on above: Performed By: #### H JEZ, CMP #### [facility] [address] [address] [address] Reba Landis ALT [Catalytic activity/Vol] 27 U/L Normal 21-72 [facility] Comment on above: Performed By: #### H JEZ, CMP #### [facility] [address] [address] [address] Reba Landis Anion gap [Moles/Vol] 11.0 mmol/L Normal [facility] Comment on above: Performed By: #### H JEZ, CMP #### [facility] [address] [address] [address] Reba Landis AST [Catalytic activity/Vol] 23 U/L Normal 17-59 [facility] Comment on above: Performed By: #### H JEZ, CMP #### [facility] [address] [address] [address] Reba Landis Bilirubin [Mass/Vol] 0.5 mg/dL Normal 0.2-1.3 [facility] Comment on above: Performed By: #### H EDNAPN, CMP #### [facility] [address] [address] [address] Reba Landis Calcium [Mass/Vol] 8.9 mg/dL Normal 8.4-10.2 [facility] Comment on above: Performed By: #### H JEZ, CMP #### [facility] [address] [address] [address] Reba Landis Chloride [Moles/Vol] 99 mmol/L Normal 98-107 [facility] Comment on above: Performed By: #### H EDNAPN, CMP #### [facility] [address] [address] [address] Reba Landis CO2 [Moles/Vol] 28.9 mmol/L Normal 22.0-30.0 [facility] Comment on above: Performed By: #### H EDNAPN, CMP #### [facility] [address] [address] [address] Reba Landis Creatinine [Mass/Vol] 1.17 mg/dL Normal 0.66-1.25 [facility] Comment on above: Performed By: #### H EDNAPN, CMP #### [facility] [address] [address] [address] Reba Landis EGFR-AF SOUTH AFRICAN >60 Normal >=60 [facility] Comment on above: Performed By: #### H EDNAPN, CMP #### [facility] [address] [address] [address] Reba Landis EGFR-NON AF SOUTH AFRICAN >60 Normal >=60 [facility] Comment on above: Performed By: #### H EDNAPN, CMP #### [facility] [address] [address] [address] Reba Landis Globulin (S) [Mass/Vol] 4.3 g/dL Normal [facility] Comment on above: Performed By: #### H EDNAPN, CMP #### [facility] [address] [address] [address] Reba Landis Glucose [Mass/Vol] 205 mg/dL Critically high 74-106 [facility] Comment on above: Performed By: #### H STROPN, CMP #### [facility] [address] [address] [address] Reba Landis Potassium [Moles/Vol] 3.9 mmol/L Normal 3.4-5.0 [facility] Comment on above: Performed By: #### H STROPN, CMP #### [facility] [address] [place] [address] Dr. Reba Landis Protein [Mass/Vol] 8.1 g/dL Normal 6.1-8.2 [facility] Comment on above: Performed By: #### H JEZ, CMP #### [facility] [address] [place] [address] Dr. Reba Landis Sodium [Moles/Vol] 135 mmol/L Critically low 137-145 [facility] Comment on above: Performed By: #### H JEZ, CMP #### [facility] [address] [place] [address] Dr. Reba Landis Urea nitrogen [Mass/Vol] 7.0 mg/dL Critically low 9.0-20.0 [facility] Comment on above: Performed By: #### H JEZ, CMP #### [facility] [address] [place] [address] Dr. Reba Landis Urea nitrogen/Creatinin e [Mass ratio] 6.0 mg/mg Normal [facility] Comment on above: Performed By: #### H JEZ, CMP #### [facility] [address] [place] [address] Dr. Reba Landis PROTIMEon 04-15-2021 INR Coag (PPP) [Relative time] 0.96 {INR} Normal [facility] Comment on above: Performed By: #### C BC #### [facility] [address] [place] [address] Dr. Reba Landis INR GUIDELINES SEE BELOW Normal [facility] Comment on above: Result Comment: ROM RED INR: 2.0 - 3.0 CONDITIONS NOT LISTED BELOW 2.5 - 3.5 FOR PROSTHETIC HEART VALVE REPLACEMENT 2.5 - 3.5 RECURRENT THROMBOSIS Performed By: #### C BC #### [facility] [address] [place] [address] Dr. Reba Landis PT Coag (PPP) [Time] 10.4 s Normal 9.0-11.6 [facility] Comment on above: Performed By: #### C BC #### [facility] [address] [place] [address] Dr. Reba Landis PTTon 04-15-2021 aPTT Coag (Bld) [Time] 36.6 s Critically high 22.3-36.2 [facility] Comment on above: Performed By: #### C BC #### [facility] [address] [address] [address] Reba Landis TROPONIN, HIGH SENSITIVITYon 04-15-2021 HSTROP 6.2 pg/mL Normal 4.0-42.2 [facility] Comment on above: Result Comment: CUT- OFF POINTS HAVE BEEN ESTABLISHED BASED ON THE FOURTH UNIVERSAL DEFINITIONS OF MYOCARDIAL INFARCTION. THE UPPER REFERENCE LIMIT (URL) OF TROPONIN, DEFINED THE 99TH PERCENTILE OF cTnI DISTRIBUTION IN A REFERENCE POPULATION, HAS BEEN CONFIRMED THE DECISION THRESHOLD FOR LA DIAGNOSIS. Performed By: #### H STROPN, CMP #### [facility] [address] [address] [address] Reba Landis History and Physical - [...] 13-Mar-2020 07:58 by Stevenson Art () Normal [facility] Patient Profile - Preop v2on 03-13-2020 Patient Profile - Preop v2 Profile: Initial Info: How to be AddressedJOSH Spoken Language PreferredEnglish Source of Informationpatient Are you currently using the Personal Electronic Health Record or CANDDi Stated Reason for 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 Primary Contact Name and [id number] [phone] Limitations on Visitors/Phone Callsnone Patient Belongingsremains with patient Patient Belongings Remaining with Patientclothing; GLASSES, CELL, WALLET Medications Brought to Hospitalno General Health: Weight in kg115.9 kilogram(s) Weight in wcc907.5 pound(s) Weight Methodstated Height in feet5 feet Height in hbrmev86 inch(es) Height in cm180.3 centimeter(s) Height Methodstated BMI (kg/m2)35.652 square meter Patient or Family Member Reaction to Anesthesiano previous reaction Blood Avoidance/Restrictionsnone Previous Transfusion ReactionPT REPORTS HAS NEVER RECEIVED BLOOD TRANSFUSION Health Mgmt: Symptoms/Conditions Managed at HomeHTN- CURRENTLY TAKING NO MEDS Barriers to Managing Healthnone Relationship/Environ: Living Arrangementshouse Lives Withdependent child(rasheeda); spouse Resource/Environmental Concernsnone [facility] Anticipated at Transitionnone Substance: Current or [...] instruction; individual instruction Cultural Considerationsnone Developmental Considerationsnone Yarsani Considerationsnone Other learner availableno Falls RiskPatient location auto qualifies him/her for HIGH RISK. 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 notifiedno Pain Scalenumerical 0-10 Pain Scale Educationteaching [...] Last Updated: 13-Mar-2020 07:31 by Lyudmila Marcos) [facility] Preop Checkliston 03-13-2020 Preop Checklist Preop Checklist: Preop Checklist: Arrival [id number] Arrival Time00:16 Procedure TypeRIGHT TRIGGER FINGER RELEASE INDEX FINGER AND MASS EXCISION Temperature C36.9 degrees C Temperature F98.4 degrees F Heart Rate85 beats per minute Respiratory Rate18 breath per minute Blood Pressure Eiqelnhu264 mm/Hg Blood Pressure Itzmhvalh36 mm/Hg NPO [id number] 21:00 ID Band Onyes Allergy Bandno known [...] Updated: 13-Mar-2020 07:33 by Lyudmila Marcos) Normal [facility] Surgical Specimenon 10-04-19 20 Surgical Specimen [facility] [address] [place] [address] FINAL SURGICAL PATHOLOGY REPORT Patient Name: CHIP HURTADO Accession No: [id number] Age Sex: 1980 [facility] Account No: [id number] Collected: 10/04/2019 Med Rec No: [id number] Received: 10/04/2019 Attend Phys: STEVENSON ART DO [...] in toto in cassette A1. ALICHARLIE/LANDEN CPT: 65485 X1 TESHA TANG M.D. 10/05/2019 Electronically signed out by Page 1 of 1 [facility] Comment on above: Performed By: #### S UR #### [address] [id number] COVID-19, NAAon 10-01-2019 COVID-19, RADHA Not Detected Normal Not Detect [facility] Comment on above: Result Comment: This test was developed and its performance characteristics determined by [employer]. This test has not been FDA cleared [...] is terminated or revoked sooner. Performed at: [facility] [address] [facility], [place] [id number] Compliance Professional: Violeta Herrmann MD, Phone: [phone] Performed By: #### I RCOV #### [facility] [address] [place] [address] COVID-19, NAAon 09-29-2019 Source Swab OP swab Normal [facility] Comment on above: Performed By: #### I RCOV #### [facility] [address] [place] [address] Established Visit (Orthopaed ic Surgery)on 09-26-2019 Established [...] find it still to be irritating with musical instrument maker or repairer. Occasionally, he has median nerve symptoms associated with musical instrument maker or repairer. 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 He denies associated constitutional symptoms. He still has the painful right hand mass as well localized to the level of the A1 jennie to the index. This is bad with forceful musical instrument maker or repairer as well. Active Problems Hand pain (729.5) [...] have the procedure done. 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 I will see him for ongoing followup status post surgery. Signatures Electronically signed by : Darlyn Resendiz, ; Sep 25 2019 12:18PM EST (Biostatistician/Recorder ) Electronically signed by : Stevenson Art DO; Sep 26 2019 3:29PM EST [facility] W/[facility]-W CONTRASTon MRI HAND W/O-W CONTRAST Patient Name: CHIP HURTADO STUDY: MRI HAND W/O-W CONTRAST; 08/31/2019 10:27 am INDICATION: pain. Palmar mass and pain. Gradual increase in size over the with 2 months. COMPARISON: None. ACCESSION NUMBER(S): [id number] ORDERING CLINICIAN: STEVENSON ART TECHNIQUE: Multiplanar and [...] Electronically signed by: ENEDINA PINEDA MD Normal [facility] Established Visit (Orthopaed ic Surgery)on 08-19-2019 Established Visit (Orthopaedic Surgery) Chief Complaint [facility] B/L hand pain/ bumps ongoing, Xray History of Present Illness The patient presents today for evaluation of his bilateral hands. He describes a painful cyst about the palmar aspect of his left hand located just ulnar to the thenar flexion crease and just distal to the transverse carpal ligament. He states that this has gradually enlarged over the last ebiwr-aab-j-half or so. 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 Active Problems Hand [...] Recorded: 15Aug2019 10:31AM Height5 ft 11 in Rblzpo532 lb BMI Ynvrapyqne46.17 BSA Calculated2.3 Physical Exam GENERAL: Alert and [...] A1 jennie. Results/Data Xray Hand Min 3 [id number] 09:07AMStevenson Art [Aug 15, 2019 9:04AM Stevenson Art] Reason: Unspecified for Xray Hand Min 3 View [Aug 15, 2019 9:04AM Stevenson Art] Reason: Unspecified for Xray Hand Min 3 View Test NameResultFlagReference Xray Hand Min 3 View(Report) Interpreted by: STEVENSON ART 08/15/19 18:23 Patient Name: CHIP HURTADO STUDY: HAND MIN 3 VIEWS; Right; 08/15/2019 9:07 am INDICATION: pain. ACCESSION NUMBER(S): [id number] ORDERING CLINICIAN: STEVENSON ART FINDINGS: Three views of the right hand show no acute fracture or dislocation. Electronically signed by: STEVENSON ART 08/15/19 18:23 Xray Hand Min 3 [id number] 09:07Stevenson [place] Test NameResultFlagReference Xray Hand Min 3 View(Report) Interpreted by: STEVENSON ART 08/15/19 18:23 Patient Name: CHIP HURTADO STUDY: HAND MIN 3 VIEWS; Left; 08/15/2019 9:07 am INDICATION: pain. ACCESSION NUMBER(S): [id number] ORDERING CLINICIAN: STEVENSON ART FINDINGS: Three views [...] Requires Verification,Retrospective Authorization; Done: 15Aug2019 09:07AM Performed:ELSHEF; Due:[id number];Ordered; For:Hand pain; Ordered By:Stevenson Art; Reason: Unspecified for Xray Hand Min 3 View Reason: Unspecified for Xray Hand Min 3 View Laterality : Right Radiologist to Determine Optimal Study : Y What are the patient's signs and symptoms? : pain Xray Hand Min 3 View; Status:Resulted - Requires Verification,Retrospective Authorization; Done: 15Aug2019 09:07AM Performed:ELSHEF; Due:[id number];Ordered; For:Hand pain; Ordered By:Stevenson Art; Laterality : Left Radiologist to Determine Optimal Study : Y What are the patient's signs and symptoms? : pain Mass of left hand MRI Hand w/wo Contrast; Status:Hold For - Scheduling,Retrospective Authorization; Requested for:15Aug2019; Perform:[facility]; Order Comments:MRI [...] Resendiz, ; Aug 16 2019 2:55PM EST (Biostatistician/Recorder ) Electronically signed by : Stevenson Art DO; Aug 19 2019 7:44AM EST Normal [facility] HAND MIN 3 VIEWSon 0 HAND MIN 3 VIEWS Patient Name: CHIP HURTADO STUDY: HAND MIN 3 VIEWS; Right; 08/15/2019 9:07 am INDICATION: pain. ACCESSION NUMBER(S): [id number] ORDERING CLINICIAN: STEVENSON ART FINDINGS: Three views of the right hand show no acute fracture or dislocation. Electronically signed by: STEVENSON ART DO Normal [facility] HAND MIN 3 VIEWS Patient Name: CHIP HURTADO STUDY: HAND MIN 3 VIEWS; Left; 08/15/2019 9:07 am INDICATION: pain. ACCESSION NUMBER(S): [id number] ORDERING CLINICIAN: STEVENSON ART FINDINGS: Three views of the left hand show no acute fracture or dislocation. Electronically signed by: STEVENSON ART DO Normal [facility] Encounters Encounter Date Encounter Type Care Provider Facility Start: 10-10-2024 End: 10-10-2024 Patient encounter procedure Js Aguilera MD Work Phone: [facility] [address] Work Phone: Start: 10-10-2024 End: 10-10-2024 ambulatory Js Aguilera MD Work Phone: [facility] Work Phone: Start: 08-29-2024 End: 08-29-2024 Patient encounter procedure Js Aguilera MD Work Phone: [facility] [address] Work Phone: Start: 08-29-2024 End: 08-29-2024 ambulatory Js Aguilera MD Work Phone: [facility] Work Phone: Start: 08-15-2024 End: 08-15-2024 Patient encounter procedure Js Aguilera MD Work Phone: [facility] [address] Work Phone: Start: 08-15-2024 End: 08-15-2024 ambulatory Js Aguilera MD Work Phone: [facility] Work Phone: Start: 07-25-2024 End: 07-25-2024 Patient encounter procedure Js Aguilera MD Work Phone: [facility] [address] Work Phone: Start: 07-25-2024 End: 07-25-2024 ambulatory Js Aguilera MD Work Phone: [facility] Work Phone: Start: 07-13-2024 End: 07-13-2024 ambulatory Js Aguilera MD Work Phone: [facility] Work Phone: Start: 07-13-2024 End: 07-13-2024 Patient encounter procedure Js Aguilera MD Work Phone: [facility] [address] Work Phone: Start: 11-10-2021 End: 11-10-[address] JS AGUILERA Facility:[facility] Start: 04-17-2021 End: 04-22-2021 Evaluation and management of inpatient DR JS AGUILERA Facility:[facility] Start: 04-15-2021 End: 04-15-[address] JS AGUILERA Facility:[facility] Start: 10-04-2019 End: 10-04-2019 Patient encounter procedure STEVENSON ART [facility] Procedures Date Procedure Procedure Detail Performing Clinician Start: 10-04-2019 Level iv surg pathol ogy gross&microscopic exam STEVENSON ART Start: 10-04-2019 DISCHARGE PATIENT STEVENSON ART Start: 10-04-2019 Level iv surg pathol ogy gross&microscopic exam STEVENSON ART Payers Date Payer Category Payer Self-pay 2024 Unknown [id number] 1980 Unknown [id number] 2.16.8 [id number] 1980 Unknown [id number] 2.16.84 [id number] 1980 Unknown [id number] 2.16.84 [id number] 1980 Unknown [id number] 2.16.84 [id number] 1961 Unknown [id number] Unknown [facility] [id number] Unknown [id number] 2.16.8 [id number] Unknown [id number] 2.16.8 [id number] Unknown [id number] 2.16.8 [id number] Unknown [id number] 2.16.8 [id number] Unknown [id number] 2.16.8 [id number] Social History Date Type Detail Facility Tobacco smoking stat [facility] Unknown if ever smoked [facility] Work Phone: Start: 07-15-2024 End: 10-11-2024 Sex Male (finding) [facility] Start: 1980 Sex Assigned At Male F [facility] Evaluation note Note Date & Type Note Facility Evaluation note No assessment information availa ble [facility] Work Phone: Summary Purpose Family [...] 4. 5. Surgeon: Stevenson Art DO Resident/Fellow/Other Ham Stripper: GINGER Peterson Estimated Blood Loss (mL): Less [...] Art D.O. Asst.: GINGER Muñiz The physician assistant track coach was present to the entire case. Given [...] DATE CREATED AUTHOR AUTHOR'S ORGANIZ ATION 10/13/2019 [facility] [place] DATE CREATED AUTHOR AUTHOR'S ORGANIZ ATION 10/14/2019 [facility] [place] DATE CREATED AUTHOR AUTHOR'S ORGANIZ ATION [facility]/20[facility] DATE CREATED AUTHOR AUTHOR'S ORGANIZ ATION 05/23/2020 [facility] DATE CREATED AUTHOR AUTHOR'S ORGANIZ ATION 11/13/2021 [facility] DATE CREATED AUTHOR AUTHOR'S ORGANIZ ATION 10/18/[address] [facility] [employer] Care Teams (unrecognized sec tion and content) Team Status: Active Member Role Status Claudia Aguilera MD Primary Care Provider Active Team Status: Inactive Member Role Status Claudia Aguilera MD Primary Care Provider Active Start: July 13, 2024 End: July 13, 2024 Emanuel DANIELS DO [facility] Attending Provider Active Start: July 13, [...] BE BASED ON THE PRIMARY CLINICAL RECORDS. [employer] provides no warranty or guarantee of the accuracy or completeness of information in this document.
--- NOTE | 2025-02-12 07:28 | MR_ITS ---
The [address] [address] Patient Name: GALINDO HURTADO MRN: [id number] date: 1980 Sex: M Assigned Patient Location: MRI Current Patient Location: MRI Accession/Order Number: [id number] Exam Date: 02/12/2025 07:42 Report Date: 02/12/2025 09:59 At the request of: JS TAY MD Procedure: MR head/brain wo con EXAMINATION: MRI OF THE BRAIN WITHOUT CONTRAST CLINICAL HISTORY: episode of weakness and tingling on the right side and visual disturbance 3 weeks ago. COMPARISON: None TECHNIQUE: Multiecho, multiplanar imaging of the brain was performed without enhancement. The ventricles are normal in size and position. A single tiny nonspecific focus of increased FLAIR signal is present in the subcortical white matter in the right frontoparietal region. There are no additional areas of abnormal signal intensity within the supra- or infratentorial brain. No restricted diffusion is identified to suggest a recent ischemic event. There are no extra-axial collections or mass effect. There is mild inferior maxillary and bilateral ethmoid mucosal thickening, greater on the right. The mastoid air cells are clear. No orbital asymmetries are visualized. MR/MR head/brain wo con IMPRESSION: SINGLE TINY NONSPECIFIC WHITE MATTER LESION ON THE RIGHT. NO ACUTE INTRACRANIAL FINDINGS. Impression dictated by: Gabrielle Herndon M.D. 02/12/2025 9:59 AM Dictation Location: [place] [address] Electronically authenticated by: [id number] Y Date: 02/12/2025 09:59
== END 2025-02-12 07:25 | disposition home or self-care (01) ==
LOC: MRI 07:24
PROVIDERS: PCP Family Medicine; Visit Provider Family Medicine
DX: G45.9 Transient cerebral ischemic attack, unspecified (principal)
CPT/HCPCS: 70551